=== PATIENT | female | born 1990 | race Caucasian/White ===

== ENCOUNTER 2021-05-28 12:11 | Inpatient (IN) | payer OTHER, SELFPAY ==
--- NOTE | ~2021-05-28 | XR_ITS ---
EXAMINATION: XR CHEST CLINICAL INFORMATION: Assess pneumomediastinum. COMPARISON: CT chest 06/05/2021 TECHNIQUE: Frontal view of the chest was obtained. FINDINGS: There is diffuse patchy opacity seen right upper lobe, both lower lobes and left midlung and upper lobe consistent with multilobar infiltrates. Heart size and pulmonary vascularity is normal. No gross bony abnormality seen. There is no gas visualized in the mediastinum on this chest x-ray. No gross bony abnormality seen. XR/XR chest 1V IMPRESSION: Multilobar infiltrates. No gas visualized in the mediastinum.
--- NOTE | ~2021-05-28 | XR_ITS ---
EXAMINATION: XR CHEST CLINICAL INFORMATION: COVID, dyspnea. COMPARISON: 05/28/2021. TECHNIQUE: Frontal view of the chest was obtained. FINDINGS: Increased infiltrates are seen with perihilar and basilar distribution. The heart and mediastinal structures are unremarkable. XR/XR chest 1V IMPRESSION: Interval increase in bilateral infiltrates consistent with the patient's known COVID pneumonia.
--- NOTE | ~2021-05-28 | XR_ITS ---
EXAMINATION: XR CHEST CLINICAL INFORMATION: Covid positive. Shortness of breath and hypoxia. COMPARISON: None TECHNIQUE: AP portable view of the chest was obtained. FINDINGS: There are scattered regions of parenchymal disease seen bilaterally. No pneumothorax or pleural effusion. Heart normal size. No evidence of pulmonary edema. XR/XR chest 1V IMPRESSION: Bilateral regions of scattered disease.
--- NOTE | ~2021-05-28 | CT_ITS ---
EXAMINATION: CT ANGIOGRAM OF THE CHEST WITH AND WITHOUT CONTRAST (CT PULMONARY ANGIOGRAM FOR PE) CLINICAL INFORMATION: Reason for Exam covid + dimer elevated, eval for PE COMPARISON: Radiographs dated 06/03/2021 TECHNIQUE: Prior to contrast administration, noncontrast localization images were obtained. Subsequently, multidetector volumetric imaging was performed from the thoracic inlet to below the diaphragms following the administration of 65 mL Omnipaque 350 intravenous contrast. No contrast reaction reported Sagittal, coronal, and MIP oblique sagittal reformatted images were obtained on the CT workstation, uploaded to PACS, and reviewed. This CT examination was performed using dose optimization techniques as appropriate, variously including the following: *Automated exposure control *Adjustment of mA and/or kV according to patient size (this includes techniques or standardized protocols for targeted exams where dose is matched to indication/reason for exam; i.e. extremities or head) *Use of iterative reconstruction technique Total exam dose-length product 327 mGy-cm FINDINGS: QUALITY OF STUDY/CONTRAST BOLUS: Satisfactory. PULMONARY ARTERIES: There is acute thrombus within the right lower lobe pulmonary artery extending into the segmental and subsegmental branches, more notably at the posterior and medial basilar segments. Small segmental and subsegmental pulmonary emboli are noted in the left lower lobe and right middle lobe. Diameter of the pulmonary outflow tract measures 2.8 cm, within normal limits. THORACIC AORTA: No aneurysm or dissection. LUNG: Patchy groundglass opacities are present throughout both lungs with a basilar preference, sparing the apices. No dense consolidation or nodules. Central airways are clear. PLEURA: No pleural effusion or pneumothorax. MEDIASTINUM: There is moderate pneumomediastinum extending from the level of the diaphragmatic hiatus cephalad through the thoracic inlet into the cervical soft tissues. A small amount dissects within the perihilar regions into the recesses around the pulmonary vasculature. A clear site of origin is not identified. There is a RV/LV ratio of 0.91 which is borderline abnormal and suggestive of elevated right heart pressures. No septal bowing is identified. CHEST WALL/AXILLA: No axillary or internal mammary lymphadenopathy. OSSEOUS STRUCTURES: No acute or suspicious osseous abnormality. UPPER ABDOMEN: No acute findings are identified in the upper abdomen. No reflux of contrast into the hepatic veins to suggest elevated right heart pressures. CT/CT angio chest PE protocol IMPRESSION: 1. Moderate volume of acute pulmonary emboli which are most notable in the lobar, segmental, and subsegmental branches of the right lower lobe. 2. Diffuse groundglass opacities in both lungs consistent with known COVID pneumonia. 3. Borderline abnormal RV/LV ratio of 0.91 which is a poor prognostic indicator regarding right ventricular strain. 4. Moderate volume of pneumomediastinum extending from the level of the diaphragmatic hiatus through the thoracic inlet into the cervical soft tissues. VTE: positive This critical result was discussed by telephone with Loida PRICE on 06/05/2021 at 6:19 PM.
--- NOTE | ~2021-05-28 | US_ITS ---
EXAMINATION: VENOUS ULTRASOUND WITH DOPPLER LOWER EXTREMITY, BILATERAL CLINICAL INFORMATION: PE. COMPARISON: None TECHNIQUE: Ultrasound of the deep veins is performed from the hip to the calf with compression sonography and color and pulse Doppler assessment. Spectral analysis with color-flow imaging is performed. FINDINGS: RIGHT: There is normal venous compression and respiratory variation and augmented flow. The visualized common femoral vein, superficial femoral vein, profunda femoral vein, popliteal vein, and the trifurcation region shows no evidence of deep venous thrombosis. There is no significant popliteal fossa cyst. LEFT: There is normal venous compression and respiratory variation and augmented flow. The visualized common femoral vein, superficial femoral vein, profunda femoral vein, popliteal vein, and the trifurcation region shows no evidence of deep venous thrombosis. There is colonic visualized in mid posterior tibial vein. The rest of the deep venous system is negative for DVT. There is no significant popliteal fossa cyst. If the patient's symptoms persist, followup ultrasound in 5 days 7 days might be of value to exclude proximal propagation from a non-visualized calf vein. US/US venous duplex LE BI IMPRESSION: No DVT demonstrated in the right lower extremity. There is venous thrombosis in left mid tibial vein below the calf. Otherwise rest of left lower extremity is unremarkable.
[2021-05-28 12:34] VITALS: BP 110/68; PULSE 113; RESP 24; TEMP 38.2; O2SAT 89; BMI 31.7
--- NOTE | 2021-05-28 12:48 | ECG_ITS ---
Test Reason : SOB Blood Pressure : / mmHG Vent. Rate : 112 BPM Atrial Rate : 112 BPM P-R Int : 140 ms QRS Dur : 086 ms QT Int : 350 ms P-R-T Axes : 047 014 016 degrees QTc Int : 477 ms Sinus tachycardia Nonspecific ST and T wave abnormality Borderline ECG No previous ECGs available Referred By: Faiza Holloway Electronically Signed By:ADRIAN GALAN
--- NOTE | 2021-05-28 13:15 | ED.SOB ---
HPI - SOB/Dyspnea General Chief Complaint: Dyspnea Stated Complaint: COVID+ Time Seen by Provider: 05/28/21 12:34 Source: patient Mode of arrival: ambulatory History of Present Illness HPI Narrative: 30-year-old female COVID-19 positive on 05/22 presenting to the ED complaining of increasing SOB, and persistent fevers x couple days. Reports dry cough and chest discomfort when coughing. Denies abdominal pain, nausea/vomiting, pedal edema, recent travel, cigarette smoking, history of clots MD elicited complaint: shortness of breath and cough Related Data Home Medications Medication Instructions Recorded Confirmed No Known Home Meds 05/28/21 05/28/21 Allergies Allergy/AdvReac Type Severity Reaction Status Date / Time No Known Allergies Allergy Verified 05/28/21 12:34 Review of Systems Review of Systems: Constitutional: + Fever, No Chills, No Fatigue, No Malaise ENT/Mouth: No Nasal Congestion, No Sinus Pain, No sore throat, No Rhinorrhea Eyes: No Eye Pain, No Swelling, No Redness, No Foreign Body, No Discharge, No Vision Changes Cardiovascular: + Chest Pain when coughing, + SOB, No Dyspnea on Exertion, No Orthopnea, No Edema, No Palpitations Respiratory: + Cough, No Sputum, No Wheezing, No Smoke Exposure, + Dyspnea Gastrointestinal: No Nausea, No Vomiting, No Diarrhea, No Constipation, No Abdominal pain Genitourinary: No Dysuria, No Flank Pain Musculoskeletal: No joint pain, No Myalgias, No Joint Swelling Skin: No Skin Lesions, No rash Neuro: No Weakness, NNo Dizziness, No Headache Yes all other systems are reviewed and are negative [facility] Past Medical History Attestation statement: The following information was validated with the patient. Medical History (Updated 05/28/21 @ 16:19 by Elena Concepcion NP) No pertinent past medical history Surgical History (Updated 05/28/21 @ 16:10 by Elena Concepcion NP) No pertinent past surgical history Family History Family History (Updated 05/28/21 @ 16:12 by Elena Concepcion NP) Mother Lung cancer Social History Social History (Updated 05/28/21 @ 16:13 by Elena Concepcion NP) Household Members: Significant Other Alcohol intake: current Alcohol intake frequency: holidays/special occasions only Patient Tobacco Use Status: Never used Tobacco Use of substances other than those prescribed or required for medical reasons: No Advance Directives: No Advance Directives Information Provided: No Patient : No Physical Exam Vital Signs: Vital Signs: Last Vital Signs Temp 100.8 F H 05/28/21 12:34 Pulse 113 H 05/28/21 12:34 Resp 24 H 05/28/21 12:34 BP 110/68 05/28/21 12:34 Pulse Ox 89 L 05/28/21 12:34 BMI result Body Mass Index 31.7 Const: General: cooperative, healthy appearing and no acute distress Orientation/consciousness: patient oriented x3 Limitations: no limitations HENMT: Head: Yes normal to inspection Ears: hearing grossly normal bilaterally General nose exam: Normal external nose present Face and sinus: Yes normal facial exam Eyes: General: appearance normal, both eyes and all related structures EOM: EOMs intact bilaterally Neck: Neck: Yes normal visual inspection and Yes no meningeal signs Resp: Effort & Inspection: tachypneic Auscultation: clear to auscultation bilaterally, no rales, no rhonchi and no wheezes Cardio: Rate: regular rate and tachycardic Heart sounds: S1 normal heart sound present and S2 normal heart sound present GI: Inspection: Yes normal to inspection Palpation (GI): Soft to palpation, nontender, no guarding and not rigid Skin: Rashes: no rashes Wounds: no wounds Neuro: General: patient oriented x3 and no meningeal signs Gait exam (Neuro): Normal gait present Extrem: General: Yes normal to inspection, Yes no pedal edema and Yes no calf tenderness Course Course Course Narrative: 1350--XR chest 1V IMPRESSION: Bilateral regions of scattered disease. -1448--leukopenia 4.0, D-dimer 171 > PE unlikely -ferritin, LDH, CRP elevated expected from COVID-19. AST/ALT elevated >plan for admission MDM - SOB/Dyspnea MDM Narrative Medical decision making narrative: 30-year-old female COVID-19 positive on 05/22 presenting to the ED complaining of increasing SOB, and persistent fevers x couple days. On exam febrile, tachypneic and tachycardic likely from fever/known COVID-19 infection, satting 89% on RA increased to 96% on 2L NC. Concern for continued COVID-19 symptoms vs COVID pneumonia vs PE. Low concern for severe sepsis as known viral etiology Plan: EKG, labs, CXR, IV Decadron, anticipated admission Differential Diagnosis Differential diagnosis: Likely pneumonia, pulmonary embolism and pleural effusion Medical Records Attestation: I reviewed the patient's medical records. Lab Data Attestation: I reviewed the patient's lab results. Result diagrams: 05/28/21 14:05 05/28/21 14:05 Labs: Lab Results 05/28/21 05/28/21 05/28/21 Range/Units 14:05 14:05 14:05 WBC 4.0 L (4.8-10.8) X10*3/uL RBC 4.63 (4.20-5.50) X10*6/uL Hgb 13.3 (12.0-16.0) g/dl Hct 38.3 (37.0-47.0) % MCV 82.7 (80.0-98.0) fL MCH 28.7 (27.0-33.0) pg MCHC 34.7 (31.0-35.0) g/dl RDW 12.4 (11.0-16.0) % Plt Count 168 (160-400) X10*3/uL MPV 9.3 L (9.4-12.3) fL Immature Gran % (Auto) 0.3 (0.0-0.4) % Neut % (Auto) 68.7 (45-73) % Lymph % (Auto) 24.4 (20-40) % [place] % (Auto) 6.3 (2-11) % Eos % (Auto) 0.0 (0-4) % Baso % (Auto) 0.3 (0-2) % Lymph # (Auto) 1.0 L (1.2-4.9) X10*3/uL [place] # (Auto) 0.3 (0.1-1.2) X10*3/uL Eos # (Auto) 0.0 (0.0-0.4) X10*3/uL Baso # (Auto) 0.0 (0.0-0.2) X10*3/uL Abs Immat Gran (auto) 0.01 (0.00-0.03) X10*3/uL Absolute Neuts (auto) 2.7 (2.0-8.3) x10*3/uL Absolute Nucleated RBC 0.000 (0.0-0.012) X10*3/uL Nucleated RBC % (auto) 0.0 (0.0-0.2) /100WBC D-Dimer High Sensitivty NG/ML Sodium 135 (135-145) mmol/L Potassium 3.2 L (3.3-5.1) mmol/L Chloride 99 (96-108) mmol/L Carbon Dioxide 26 (22-29) mmol/L Anion Gap 13 (12-20) BUN 7 L (9-16) mg/dL Creatinine 0.68 (0.5-1.4) mg/dL Estim Creat Clear Calc 126.7 Estimated GFR > 60 Random Glucose 129 H (60-115) mg/dL Lactic Acid 1.0 (0.5-2.0) mmol/L Calcium 9.6 (8.4-10.2) mg/dL Magnesium 1.9 (1.6-2.6) mg/dL Ferritin (10-122) ng/mL Total Bilirubin 0.3 (0.0-1.0) mg/dL Direct Bilirubin 0.3 (0.0-0.5) mg/dL AST 85 H (5-31) U/L ALT 71 H (0-31) U/L Alkaline Phosphatase 47 (39-117) U/L Lactate Dehydrogenase 499 H (122-220) U/L C-Reactive Protein 3.75 H (< or = 0.50) mg/dL B-Natriuretic Peptide (<100) pg/mL Total Protein 6.7 (6.5-8.0) g/dL Albumin 4.1 (3.5-5.0) g/dL Procalcitonin ng/mL 05/28/21 05/28/21 05/28/21 Range/Units 14:05 14:05 14:06 WBC (4.8-10.8) X10*3/uL RBC (4.20-5.50) X10*6/uL Hgb (12.0-16.0) g/dl Hct (37.0-47.0) % MCV (80.0-98.0) fL MCH (27.0-33.0) pg MCHC (31.0-35.0) g/dl RDW (11.0-16.0) % Plt Count (160-400) X10*3/uL MPV (9.4-12.3) fL Immature Gran % (Auto) (0.0-0.4) % Neut % (Auto) (45-73) % Lymph % (Auto) (20-40) % [place] % (Auto) (2-11) % Eos % (Auto) (0-4) % Baso % (Auto) (0-2) % Lymph # (Auto) (1.2-4.9) X10*3/uL [place] # (Auto) (0.1-1.2) X10*3/uL Eos # (Auto) (0.0-0.4) X10*3/uL Baso # (Auto) (0.0-0.2) X10*3/uL Abs Immat Gran (auto) (0.00-0.03) X10*3/uL Absolute Neuts (auto) (2.0-8.3) x10*3/uL Absolute Nucleated RBC (0.0-0.012) X10*3/uL Nucleated RBC % (auto) (0.0-0.2) /100WBC D-Dimer High Sensitivty 171 NG/ML Sodium (135-145) mmol/L Potassium (3.3-5.1) mmol/L Chloride (96-108) mmol/L Carbon Dioxide (22-29) mmol/L Anion Gap (12-20) BUN (9-16) mg/dL Creatinine (0.5-1.4) mg/dL Estim Creat Clear Calc Estimated GFR Random Glucose (60-115) mg/dL Lactic Acid (0.5-2.0) mmol/L Calcium (8.4-10.2) mg/dL Magnesium (1.6-2.6) mg/dL Ferritin 1066 H (10-122) ng/mL Total Bilirubin (0.0-1.0) mg/dL Direct Bilirubin (0.0-0.5) mg/dL AST (5-31) U/L ALT (0-31) U/L Alkaline Phosphatase (39-117) U/L Lactate Dehydrogenase (122-220) U/L C-Reactive Protein (< or = 0.50) mg/dL B-Natriuretic Peptide < 10 (<100) pg/mL Total Protein (6.5-8.0) g/dL Albumin (3.5-5.0) g/dL Procalcitonin ng/mL 05/28/21 Range/Units 14:06 WBC (4.8-10.8) X10*3/uL RBC (4.20-5.50) X10*6/uL Hgb (12.0-16.0) g/dl Hct (37.0-47.0) % MCV (80.0-98.0) fL MCH (27.0-33.0) pg MCHC (31.0-35.0) g/dl RDW (11.0-16.0) % Plt Count (160-400) X10*3/uL MPV (9.4-12.3) fL Immature Gran % (Auto) (0.0-0.4) % Neut % (Auto) (45-73) % Lymph % (Auto) (20-40) % [place] % (Auto) (2-11) % Eos % (Auto) (0-4) % Baso % (Auto) (0-2) % Lymph # (Auto) (1.2-4.9) X10*3/uL [place] # (Auto) (0.1-1.2) X10*3/uL Eos # (Auto) (0.0-0.4) X10*3/uL Baso # (Auto) (0.0-0.2) X10*3/uL Abs Immat Gran (auto) (0.00-0.03) X10*3/uL Absolute Neuts (auto) (2.0-8.3) x10*3/uL Absolute Nucleated RBC (0.0-0.012) X10*3/uL Nucleated RBC % (auto) (0.0-0.2) /100WBC D-Dimer High Sensitivty NG/ML Sodium (135-145) mmol/L Potassium (3.3-5.1) mmol/L Chloride (96-108) mmol/L Carbon Dioxide (22-29) mmol/L Anion Gap (12-20) BUN (9-16) mg/dL Creatinine (0.5-1.4) mg/dL Estim Creat Clear Calc Estimated GFR Random Glucose (60-115) mg/dL Lactic Acid (0.5-2.0) mmol/L Calcium (8.4-10.2) mg/dL Magnesium (1.6-2.6) mg/dL Ferritin (10-122) ng/mL Total Bilirubin (0.0-1.0) mg/dL Direct Bilirubin (0.0-0.5) mg/dL AST (5-31) U/L ALT (0-31) U/L Alkaline Phosphatase (39-117) U/L Lactate Dehydrogenase (122-220) U/L C-Reactive Protein (< or = 0.50) mg/dL B-Natriuretic Peptide (<100) pg/mL Total Protein (6.5-8.0) g/dL Albumin (3.5-5.0) g/dL Procalcitonin 0.14 ng/mL ECG Data Attestation: I personally reviewed and interpreted this ECG as follows: ECG interpretation date: 05/28/21 ECG interpretation time: 01:34 Interpretation: EKG sinus tachycardia rate of 112. MA interval 140. QTC 477. Inverted T-wave in lead 3. No STEMI Critical Care Time Critical Care Time Critical Care Time: Yes Total Critical Care Time: 40 Attestation: I have personally provided critical care time exclusive of time spent on separately billable procedures. Time includes review of lab data, radiology results, discussion with consultants, and monitoring for potential decompensation. Intervention performed as documented. Discharge Plan Discharge Clinical Impression: Pneumonia due to COVID-19 virus Patient Disposition: Admitted As Inpatient
[2021-05-28] MEDS: Acetaminophen 325 MG TABLET 650 MG PO (13:23)
[2021-05-28] MEDS: dexAMETHasone sod phosphate 4 MG/ML VIAL 6 MG IVPUSH (13:44)
[2021-05-28 14:13] LABS: Basophils Percent Auto 0.3 % (0-2); Hematocrit 38.3 % (37.0-47.0); Hemoglobin 13.3 g/dl (12.0-16.0); Imm Gran Abs Auto 0.01 X10*3/uL (0.00-0.03); Imm Gran Pct Auto 0.3 % (0.0-0.4); Lymphocytes Percent Auto 24.4 % (20-40); MANUAL DIFF FLAG NO; Mean Corpuscular HGB Conc 34.7 g/dl (31.0-35.0); Mean Corpuscular Hemoglobin 28.7 pg (27.0-33.0); Mean Corpuscular Volume 82.7 fL (80.0-98.0); Mean Platelet Volume 9.3 fL (9.4-12.3); Monocytes Absolute Auto 0.3 X10*3/uL (0.1-1.2); Monocytes Percent Auto 6.3 % (2-11); Neutrophils Absolute Auto 2.7 x10*3/uL (2.0-8.3); Neutrophils Percent Auto 68.7 % (45-73); Platelet Count 168 X10*3/uL (160-400); Red Blood Count 4.63 X10*6/uL (4.20-5.50); Red Cell Distribution Width 12.4 % (11.0-16.0)
[2021-05-28] MEDS: cefTRIAXone sodium 1 GM in 0.9 % Sodium Chloride 50 ML IV (14:17)
[2021-05-28 14:20] LABS: D Dimer High Sensitivity 171 NG/ML
[2021-05-28 14:32] LABS: Alanine Aminotransferase 71 U/L (0-31); Albumin Level 4.1 g/dL (3.5-5.0); Alkaline Phosphatase 47 U/L (39-117); Anion Gap 13 (12-20); Aspartate Amino Transferase 85 U/L (5-31); Bilirubin Direct 0.3 mg/dL (0.0-0.5); Bilirubin Total 0.3 mg/dL (0.0-1.0); Blood Urea Nitrogen 7 mg/dL (9-16); C Reactive Protein 3.75 mg/dL (< or = 0.50); Calcium 9.6 mg/dL (8.4-10.2); Carbon Dioxide 26 mmol/L (22-29); Chloride 99 mmol/L (96-108); Creatinine Clr Calc Pharmacy 126.7; Estimated Glomerular Filt Rate > 60; Glucose Random 129 mg/dL (60-115); Lactate Dehydrogenase 499 U/L (122-220); Magnesium 1.9 mg/dL (1.6-2.6); Potassium 3.2 mmol/L (3.3-5.1); Sodium 135 mmol/L (135-145); Total Protein 6.7 g/dL (6.5-8.0)
[2021-05-28 14:36] LABS: B Type Natriuretic Peptide < 10 pg/mL (<100)
[2021-05-28 14:49] LABS: Ferritin 1066 ng/mL (10-122); Procalcitonin 0.14 ng/mL
--- NOTE | 2021-05-28 15:14 | PM.IMHP ---
History of Present Illness Date of Service: 05/28/21 Attending physician on admission: Greg Ferreira Chief Complaint: Shortness of breath and fever 30 year old unvaccinated women presenting with increased shortness of breath over the last few days. She was diagnosed with covid 1 week ago. She lives with her boyfriend who also has covid 19. Seh reported fevers, shortness of breath and cough as well as a few episodes of diarrhea. She denied chest pain, vomiting, recent travel. In the ED, her oxygen saturation was noted to be 89% and she was placed on 2 liters of oxygen.Her cxr showed Bilateral regions of scattered disease. She did have a fever abnd tachycardia. She was given a dose of rocephin, decadron and tylenol. She will be admitted for further management of Covid 19. Review of Systems Review of Systems: Denies any recent fever chills or decrease in appetite respiratory See HPI cardiovascular Denies chest pain gastrointestinal denies any dysphagia abdominal pain nausea vomiting or diarrhea genitourinary denies any dysuria frequency or hematuria musculoskeletal denies any joint pain or swelling neuropsych denies any weakness or seizures all other systems reviewed are negative [facility] Medical History (Updated 05/28/21 @ 16:19 by Elena Concepcion NP) No pertinent past medical history Family History (Updated 05/28/21 @ 16:12 by Elena Concepcion NP) Mother Lung cancer Surgical History (Updated 05/28/21 @ 16:10 by Elena Concepcion NP) No pertinent past surgical history Social History (Updated 05/28/21 @ 16:13 by Elena Concepcion NP) Household Members: Significant Other Alcohol intake: current Alcohol intake frequency: holidays/special occasions only Patient Tobacco Use Status: Never used Tobacco Use of substances other than those prescribed or required for medical reasons: No Advance Directives: No Advance Directives Information Provided: No Patient : No Meds Allergies Allergy/AdvReac Type Severity Reaction Status Date / Time No Known Allergies Allergy Verified 05/28/21 12:34 Active Medications: Current Medications Pharmacy Consult (Consult Rx Perform Med Rec) 1 each MISCELLANE ONCE PRN PRN Reason: Consult order Home Medications Medication Instructions Recorded Confirmed Last Taken Type No Known Home Meds 05/28/21 05/28/21 Unknown History Physical Exam Vital Signs and Narrative: Vital Signs: Last Vital Signs Temp 100.8 F H 05/28/21 12:34 Pulse 113 H 05/28/21 12:34 Resp 24 H 05/28/21 12:34 BP 110/68 05/28/21 12:34 Pulse Ox 89 L 05/28/21 12:34 BMI result Body Mass Index 31.7 Appearing in no acute distress head is normocephalic atraumatic eyes pupils are PERRLA sclera is anicteric mouth throat mucous membranes are intact and moist neck is supple no lymphadenopathy, no JVD noted lung sounds are clear to auscultation heart regular rate rhythm, clear S1, S2 positive bowel sounds, abdomen is soft, nontender neuro patient is alert x3, no focal deficits Results Labs CBC and Chem 7: 05/28/21 14:05 05/28/21 14:05 Labs: Laboratory Results - last 24 hr 05/28/21 05/28/21 05/28/21 14:05 14:05 14:05 MCV 82.7 MCH 28.7 MCHC 34.7 RDW 12.4 Plt Count 168 MPV 9.3 L Immature Gran % (Auto) 0.3 Neut % (Auto) 68.7 Lymph % (Auto) 24.4 Wirt % (Auto) 6.3 Eos % (Auto) 0.0 Baso % (Auto) 0.3 Lymph # (Auto) 1.0 L Wirt # (Auto) 0.3 Eos # (Auto) 0.0 Baso # (Auto) 0.0 Abs Immat Gran (auto) 0.01 Absolute Neuts (auto) 2.7 Absolute Nucleated RBC 0.000 Nucleated RBC % (auto) 0.0 D-Dimer High Sensitivty Anion Gap 13 Estim Creat Clear Calc 126.7 Estimated GFR > 60 Random Glucose 129 H Lactic Acid 1.0 Calcium 9.6 Magnesium 1.9 Ferritin Total Bilirubin 0.3 Direct Bilirubin 0.3 AST 85 H ALT 71 H Alkaline Phosphatase 47 Lactate Dehydrogenase 499 H C-Reactive Protein 3.75 H B-Natriuretic Peptide Total Protein 6.7 Albumin 4.1 Procalcitonin 05/28/21 05/28/21 05/28/21 14:05 14:05 14:06 MCV MCH MCHC RDW Plt Count MPV Immature Gran % (Auto) Neut % (Auto) Lymph % (Auto) Wirt % (Auto) Eos % (Auto) Baso % (Auto) Lymph # (Auto) Wirt # (Auto) Eos # (Auto) Baso # (Auto) Abs Immat Gran (auto) Absolute Neuts (auto) Absolute Nucleated RBC Nucleated RBC % (auto) D-Dimer High Sensitivty 171 Anion Gap Estim Creat Clear Calc Estimated GFR Random Glucose Lactic Acid Calcium Magnesium Ferritin 1066 H Total Bilirubin Direct Bilirubin AST ALT Alkaline Phosphatase Lactate Dehydrogenase C-Reactive Protein B-Natriuretic Peptide < 10 Total Protein Albumin Procalcitonin 05/28/21 14:06 MCV MCH MCHC RDW Plt Count MPV Immature Gran % (Auto) Neut % (Auto) Lymph % (Auto) Wirt % (Auto) Eos % (Auto) Baso % (Auto) Lymph # (Auto) Wirt # (Auto) Eos # (Auto) Baso # (Auto) Abs Immat Gran (auto) Absolute Neuts (auto) Absolute Nucleated RBC Nucleated RBC % (auto) D-Dimer High Sensitivty Anion Gap Estim Creat Clear Calc Estimated GFR Random Glucose Lactic Acid Calcium Magnesium Ferritin Total Bilirubin Direct Bilirubin AST ALT Alkaline Phosphatase Lactate Dehydrogenase C-Reactive Protein B-Natriuretic Peptide Total Protein Albumin Procalcitonin 0.14 Imaging Radiologist's Impressions: Impressions Chest X-Ray 05/28/21 13:10 IMPRESSION: Bilateral regions of scattered disease. Assessment and Plan (1) Acute respiratory failure with hypoxia: Status: Acute (2) Pneumonia due to COVID-19 virus: Status: Acute (3) Hypokalemia: Status: Acute 30-year-old woman presented to the complaints of increased shortness of fever several days. Sepsis. Fever, tachycardia, tachypnea. Viral COVID Follow blood cultures Acute hypoxic respiratory failure secondary to COVID-19 Decadron, Vitamin-C, vitamin-D and Pepcid Supplemental oxygen as needed ID consult Hypokalemia. Repleted follow BMP DVT prophylaxis with Lovenox Attending Dr. Ferreira Full code Quality Stroke Does the patient have a stroke diagnosis?: No VTE Prior VTE?: No VTE Risk Level:: Medical - moderate - high VTE Device Contraindication: Treatment Not Indicated VTE Drug Contraindication: N/A - Med Ordered
[2021-05-28 16:58] LABS: Lactate Dehydrogenase 572 U/L (122-220)
[2021-05-28 17:19] LABS: Ferritin 1095 ng/mL (10-122)
[2021-05-28] MEDS: Potassium Chloride ER 20 MEQ TAB.ER.PRT 40 MEQ PO (17:58)
[2021-05-28] MEDS: Enoxaparin Sodium 40 MG/0.4 ML SYRINGE SUBCUT (17:58)
[2021-05-28] MEDS: 0.9 % Sodium Chloride Flush 3 ML SYRINGE IVFLUSH (17:59)
[2021-05-28 19:23] VITALS: BP 118/77; PULSE 98; RESP 16; TEMP 37.8; O2SAT 97
[2021-05-28] MEDS: Ketorolac Tromethamine 30 MG/ML VIAL IVPUSH (20:13)
[2021-05-29] VITALS (12 sets, daily range): BP systolic 106–126; BP diastolic 67–76; PULSE 89–111; RESP 16–20; TEMP 37.5–39.4; O2SAT 85–97
[2021-05-29] MEDS: Acetaminophen 325 MG TABLET 650 MG PO ×4 (00:51→20:51)
--- NOTE | 2021-05-29 02:19 | PC.NURSE ---
pt still febrile after tylenol and ice packs. temp 101.6 hospitalist notified. no new orders at this time.
[2021-05-29 08:00] LABS: MANUAL DIFF FLAG NO
[2021-05-29 08:03] LABS: Basophils Percent Auto 0.2 % (0-2); Hemoglobin 13.4 g/dl (12.0-16.0); Imm Gran Abs Auto 0.02 X10*3/uL (0.00-0.03); Imm Gran Pct Auto 0.4 % (0.0-0.4); Lymphocytes Absolute Auto 1.1 X10*3/uL (1.2-4.9); Lymphocytes Percent Auto 20.7 % (20-40); Mean Corpuscular HGB Conc 33.5 g/dl (31.0-35.0); Mean Corpuscular Volume 83.7 fL (80.0-98.0); Mean Platelet Volume 9.7 fL (9.4-12.3); Monocytes Absolute Auto 0.4 X10*3/uL (0.1-1.2); Monocytes Percent Auto 7.3 % (2-11); Neutrophils Absolute Auto 3.7 x10*3/uL (2.0-8.3); Neutrophils Percent Auto 71.4 % (45-73); Platelet Count 244 X10*3/uL (160-400); Red Blood Count 4.78 X10*6/uL (4.20-5.50); Red Cell Distribution Width 12.5 % (11.0-16.0); White Blood Count 5.2 X10*3/uL (4.8-10.8)
--- NOTE | 2021-05-29 08:13 | PHA.MEDREC ---
Pharmacy Consult ? Medication Reconciliation Rn completed med rec, pharmacy reviewed.
[2021-05-29 08:28] LABS: Anion Gap 14 (12-20); Blood Urea Nitrogen 13 mg/dL (9-16); Calcium 9.1 mg/dL (8.4-10.2); Carbon Dioxide 27 mmol/L (22-29); Chloride 99 mmol/L (96-108); Creatinine Clr Calc Pharmacy 110.5; Estimated Glomerular Filt Rate > 60; Glucose Random 130 mg/dL (60-115); Potassium 3.8 mmol/L (3.3-5.1); Sodium 136 mmol/L (135-145)
[2021-05-29] MEDS: Cholecalciferol (Vitamin D3) 25 MCG TABLET 50 MCG PO (08:49)
[2021-05-29] MEDS: Azithromycin 500 MG TABLET PO (08:50)
[2021-05-29] MEDS: Ascorbic Acid 500 MG TABLET 1000 MG PO (08:50)
[2021-05-29] MEDS: 0.9 % Sodium Chloride Flush 3 ML SYRINGE IVFLUSH ×2 (08:50→15:23)
[2021-05-29] MEDS: dexAMETHasone sod phosphate 4 MG/ML VIAL 6 MG IVPUSH (08:50)
[2021-05-29] MEDS: Famotidine/PF 20 MG/2 ML VIAL IVPUSH (08:51)
--- NOTE | 2021-05-29 11:52 | MHC.CM.PN ---
CM ATTEMPTED TO CONTACT PT AT CELL PHONE NUMBER LISTED, [phone], PT DID NOT ANSWER CM CALLED PTS PRIMARY CONTACT, [facility] MONREAL [phone]. 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 CURRENT DC PLAN IS HOME WITH NO SERVICES S/O, [facility], WILL TRANSPORT
--- NOTE | 2021-05-29 11:57 | HO.PM.IMPN ---
Subjective Subjective Date of Service: 05/29/21 <Elena Concepcion NP - Last Filed: 05/29/21 12:00> 06/05/21 <Joaquín Lopez MD - Last Filed: 06/05/21 03:43> Review of Systems Follow-up COVID-19 States feeling very anxious and worried Having fevers overnight No complaints of shortness of breath or cough <Elena Concepcion NP - Last Filed: 05/29/21 12:00> Physical Exam Vital Signs: Vital Signs: Last Vital Signs Temp 99.7 F 05/29/21 10:22 Pulse 111 H 05/29/21 07:24 Resp 16 05/29/21 07:24 BP 115/70 05/29/21 07:24 Pulse Ox 94 05/29/21 07:24 BMI result Body Mass Index 31.7 <Elena Concepcion NP - Last Filed: 05/29/21 12:00> Appearing in no acute distress lungs normal expansion heart regular rate rhythm, clear S1, S2 positive bowel sounds, abdomen is soft, nontender neuro patient is alert x3, no focal deficits <Elena Concepcion NP - Last Filed: 05/29/21 12:00> Objective Data Active Medications Acetaminophen (Acetaminophen 325 Mg Tablet) 650 mg PO Q4H PRN PRN Reason: pain and or fever Last Admin: 05/29/21 08:49 Dose: 650 mg Documented by: THELMA Ascorbic Acid (Ascorbic Acid 500 Mg Tablet) 1,000 mg PO DAILY [facility] Last Admin: 05/29/21 08:50 Dose: 1,000 mg Documented by: THELMA Azithromycin (Azithromycin 500 Mg Tablet) 500 mg PO Q24H [facility] Last Admin: 05/29/21 08:50 Dose: 500 mg Documented by: THELMA Dexamethasone Sodium Phosphate (Dexamethasone Sod Phosphate 4 Mg/Ml Vial) 6 mg IVPUSH DAILY [facility] Last Admin: 05/29/21 08:50 Dose: 6 mg Documented by: THELMA Enoxaparin Sodium (Enoxaparin Sodium 40 Mg/0.4 Ml Syringe) 40 mg SUBCUT Q24H [facility] Last Admin: 05/28/21 17:58 Dose: 40 mg Documented by: YANNI Famotidine (Famotidine/Pf 20 Mg/2 Ml Vial) 20 mg IVPUSH DAILY [facility] Last Admin: 05/29/21 08:51 Dose: 20 mg Documented by: THELMA Ceftriaxone Sodium 1 gm/ (Sodium Chloride) 50 mls @ 100 mls/hr IV Q24H [facility] Ketorolac Tromethamine (Ketorolac Tromethamine 30 Mg/Ml Vial) 30 mg IVPUSH Q6H PRN PRN Reason: Pain, Mild (Pain Scale 1-3) Stop: 06/02/21 15:16 Last Admin: 05/28/21 20:13 Dose: 30 mg Documented by: LESTER Pharmacy Consult (Consult Rx Perform Med Rec) 1 each MISCELLANE ONCE PRN PRN Reason: Consult order Sodium Chloride (0.9 % Sodium Chloride Flush 3 Ml Syringe) 3 ml IVFLUSH QSHIFT [facility] Last Admin: 05/29/21 08:50 Dose: 3 ml Documented by: THELMA Vitamin D (Cholecalciferol (Vitamin D3) 25 Mcg Tablet) 50 mcg PO DAILY [facility] Last Admin: 05/29/21 08:49 Dose: 50 mcg Documented by: THELMA <Elena Concepcion NP - Last Filed: 05/29/21 12:00> Labs CBC & Chem 7: : 06/03/21 07:06 06/03/21 07:06 <Elena Concepcion NP - Last Filed: 05/29/21 12:00> Labs: Laboratory Results - last 24 hr 05/28/21 05/28/21 05/28/21 14:05 14:05 14:05 MCV 82.7 MCH 28.7 MCHC 34.7 RDW 12.4 Plt Count 168 MPV 9.3 L Immature Gran % (Auto) 0.3 Neut % (Auto) 68.7 Lymph % (Auto) 24.4 [place] % (Auto) 6.3 Eos % (Auto) 0.0 Baso % (Auto) 0.3 Lymph # (Auto) 1.0 L [place] # (Auto) 0.3 Eos # (Auto) 0.0 Baso # (Auto) 0.0 Abs Immat Gran (auto) 0.01 Absolute Neuts (auto) 2.7 Absolute Nucleated RBC 0.000 Nucleated RBC % (auto) 0.0 D-Dimer High Sensitivty Anion Gap 13 Estim Creat Clear Calc 126.7 Estimated GFR > 60 Random Glucose 129 H Lactic Acid 1.0 Calcium 9.6 Magnesium 1.9 Ferritin Total Bilirubin 0.3 Direct Bilirubin 0.3 AST 85 H ALT 71 H Alkaline Phosphatase 47 Lactate Dehydrogenase 499 H C-Reactive Protein 3.75 H B-Natriuretic Peptide Total Protein 6.7 Albumin 4.1 Procalcitonin 05/28/21 05/28/21 05/28/21 14:05 14:05 14:06 MCV MCH MCHC RDW Plt Count MPV Immature Gran % (Auto) Neut % (Auto) Lymph % (Auto) [place] % (Auto) Eos % (Auto) Baso % (Auto) Lymph # (Auto) [place] # (Auto) Eos # (Auto) Baso # (Auto) Abs Immat Gran (auto) Absolute Neuts (auto) Absolute Nucleated RBC Nucleated RBC % (auto) D-Dimer High Sensitivty 171 Anion Gap Estim Creat Clear Calc Estimated GFR Random Glucose Lactic Acid Calcium Magnesium Ferritin 1066 H Total Bilirubin Direct Bilirubin AST ALT Alkaline Phosphatase Lactate Dehydrogenase C-Reactive Protein B-Natriuretic Peptide < 10 Total Protein Albumin Procalcitonin 05/28/21 05/28/21 05/29/21 14:06 16:33 07:37 MCV 83.7 MCH 28.0 MCHC 33.5 RDW 12.5 Plt Count 244 D MPV 9.7 Immature Gran % (Auto) 0.4 Neut % (Auto) 71.4 Lymph % (Auto) 20.7 [place] % (Auto) 7.3 Eos % (Auto) 0.0 Baso % (Auto) 0.2 Lymph # (Auto) 1.1 L [place] # (Auto) 0.4 Eos # (Auto) 0.0 Baso # (Auto) 0.0 Abs Immat Gran (auto) 0.02 Absolute Neuts (auto) 3.7 Absolute Nucleated RBC 0.000 Nucleated RBC % (auto) 0.0 D-Dimer High Sensitivty Anion Gap Estim Creat Clear Calc Estimated GFR Random Glucose Lactic Acid Calcium Magnesium Ferritin 1095 H Total Bilirubin Direct Bilirubin AST ALT Alkaline Phosphatase Lactate Dehydrogenase 572 H C-Reactive Protein B-Natriuretic Peptide Total Protein Albumin Procalcitonin 0.14 05/29/21 07:37 MCV MCH MCHC RDW Plt Count MPV Immature Gran % (Auto) Neut % (Auto) Lymph % (Auto) [place] % (Auto) Eos % (Auto) Baso % (Auto) Lymph # (Auto) [place] # (Auto) Eos # (Auto) Baso # (Auto) Abs Immat Gran (auto) Absolute Neuts (auto) Absolute Nucleated RBC Nucleated RBC % (auto) D-Dimer High Sensitivty Anion Gap 14 Estim Creat Clear Calc 110.5 Estimated GFR > 60 Random Glucose 130 H Lactic Acid Calcium 9.1 Magnesium Ferritin Total Bilirubin Direct Bilirubin AST ALT Alkaline Phosphatase Lactate Dehydrogenase C-Reactive Protein B-Natriuretic Peptide Total Protein Albumin Procalcitonin <Elena Concepcion NP - Last Filed: 05/29/21 12:00> Assessment and Plan (1) Pneumonia due to COVID-19 virus: Status: Acute <Elena Concepcion NP - Last Filed: 05/29/21 12:00> Assessment and Plan: 30-year-old woman presented to the complaints of increased shortness of fever several days. Sepsis.? Fever, tachycardia, tachypnea.? Viral COVID Follow blood cultures Acute hypoxic respiratory failure secondary to COVID-19 Decadron, Vitamin-C, vitamin-D and Pepcid Supplemental oxygen as needed, on 4liters sating 90-94% ID consult Will add rocephin and azithromycin for continuous fevers Hypokalemia. Repleted follow BMP DVT prophylaxis with Lovenox Attending Dr. Lopez Full code <Elena Concepcion NP - Last Filed: 05/29/21 12:00> Quality Stroke Does the patient have a stroke diagnosis?: No <Elena Concepcion NP - Last Filed: 05/29/21 12:00> VTE Prior VTE?: No <Elena Concepcion NP - Last Filed: 05/29/21 12:00> VTE Risk Level:: Medical - moderate - high <Elena Concepcion NP - Last Filed: 05/29/21 12:00> VTE Device Contraindication: Treatment Not Indicated <Elena Concepcion NP - Last Filed: 05/29/21 12:00> VTE Drug Contraindication: N/A - Med Ordered <Elena Concepcion NP - Last Filed: 05/29/21 12:00>
[2021-05-29] MEDS: Enoxaparin Sodium 40 MG/0.4 ML SYRINGE SUBCUT (15:23)
[2021-05-29 15:45] LABS: COVID-19 Test Positive (Negative)
--- NOTE | 2021-05-29 17:37 | PC.NURSE ---
PT FEBRILE THIS MORNING TO 103, PT WAS NOT FEELING WELL, TYLENOL GIVEN. FEVER DECREASED TO 99.7, PT STATED FEELING MUCH BETTER. REMAINS ON 2L O2 SATS IN HIGH 80'S ON ROOM AIR. TOLERATING PO, AMB TO BR. NEEDS BEING MET
--- NOTE | 2021-05-29 19:27 | PC.NURSE ---
Attempted to call report, Rn will call back
[2021-05-30] VITALS (9 sets, daily range): BP systolic 97–128; BP diastolic 56–74; PULSE 89–118; RESP 19–33; TEMP 35.9–40.1; O2SAT 90–96
[2021-05-30] MEDS: Acetaminophen 325 MG TABLET 650 MG PO ×3 (02:12→23:59)
[2021-05-30] MEDS: Ketorolac Tromethamine 30 MG/ML VIAL IVPUSH (03:40)
[2021-05-30 08:49] LABS: Hematocrit 40.2 % (37.0-47.0); Hemoglobin 13.2 g/dl (12.0-16.0); Mean Corpuscular HGB Conc 32.8 g/dl (31.0-35.0); Mean Corpuscular Volume 85.2 fL (80.0-98.0); Platelet Count 326 X10*3/uL (160-400); Red Blood Count 4.72 X10*6/uL (4.20-5.50); Red Cell Distribution Width 12.6 % (11.0-16.0); White Blood Count 7.7 X10*3/uL (4.8-10.8)
[2021-05-30 09:06] LABS: Anion Gap 14 (12-20); Blood Urea Nitrogen 18 mg/dL (9-16); Carbon Dioxide 30 mmol/L (22-29); Chloride 98 mmol/L (96-108); Creatinine Clr Calc Pharmacy 89.8; Estimated Glomerular Filt Rate > 60; Glucose Random 126 mg/dL (60-115); Potassium 3.7 mmol/L (3.3-5.1); Sodium 138 mmol/L (135-145)
[2021-05-30 09:11] LABS: Lactate Dehydrogenase 686 U/L (122-220)
--- NOTE | 2021-05-30 09:11 | MHC.CM.PN ---
Per SVP GROUP DIRECTOR, Patient is not yet medically cleared for dc (Covid, IV Decadron, IV Toradol). Home is the goal for dc and CM will follow for possible need to adjust the dc plan.
[2021-05-30 09:39] LABS: Procalcitonin 0.21 ng/mL
[2021-05-30] MEDS: 0.9 % Sodium Chloride Flush 3 ML SYRINGE IVFLUSH ×2 (09:52→15:35)
[2021-05-30] MEDS: dexAMETHasone sod phosphate 4 MG/ML VIAL 6 MG IVPUSH (09:52)
[2021-05-30] MEDS: Cholecalciferol (Vitamin D3) 25 MCG TABLET 50 MCG PO (09:54)
[2021-05-30] MEDS: Ascorbic Acid 500 MG TABLET 1000 MG PO (09:54)
[2021-05-30] MEDS: Famotidine/PF 20 MG/2 ML VIAL IVPUSH (09:56)
[2021-05-30 10:09] LABS: Ferritin 1929 ng/mL (10-122)
--- NOTE | 2021-05-30 10:59 | P.PNIM_ITS ---
Subjective Subjective Date of Service: 05/30/21 <Elena Concepcion NP - Last Filed: 05/30/21 11:02> 06/08/21 <Pasha Barger DO - Last Filed: 06/08/21 17:05> Review of Systems Follow-up COVID-19 pneumonia with hypoxia overnight Feels short of breath sometimes with ambulation Having diarrhea Increased anxiety <Elena Concepcion NP - Last Filed: 05/30/21 11:02> Physical Exam Vital Signs: Vital Signs: Last Vital Signs Temp 99.0 F 05/30/21 09:44 Pulse 105 H 05/30/21 09:44 Resp 20 05/30/21 09:44 BP 113/64 05/30/21 09:44 Pulse Ox 93 05/30/21 09:44 BMI result Body Mass Index 31.7 <Elena Concepcion NP - Last Filed: 05/30/21 11:02> Appearing in no acute distress lungs normal expansion heart regular rate rhythm, clear S1, S2 positive bowel sounds, abdomen is soft, nontender neuro patient is alert x3, no focal deficits <Elena Concepcion NP - Last Filed: 05/30/21 11:02> Objective Data Active Medications Acetaminophen (Acetaminophen 325 Mg Tablet) 650 mg PO Q4H PRN PRN Reason: pain and or fever Last Admin: 05/30/21 02:12 Dose: 650 mg Documented by: BARBARA Ascorbic Acid (Ascorbic Acid 500 Mg Tablet) 1,000 mg PO DAILY [facility] Last Admin: 05/30/21 09:54 Dose: 1,000 mg Documented by: JOI Dexamethasone Sodium Phosphate (Dexamethasone Sod Phosphate 4 Mg/Ml Vial) 6 mg IVPUSH DAILY [facility] Last Admin: 05/30/21 09:52 Dose: 6 mg Documented by: JOI Enoxaparin Sodium (Enoxaparin Sodium 40 Mg/0.4 Ml Syringe) 40 mg SUBCUT Q24H [facility] Last Admin: 05/29/21 15:23 Dose: 40 mg Documented by: THELMA Famotidine (Famotidine/Pf 20 Mg/2 Ml Vial) 20 mg IVPUSH DAILY [facility] Last Admin: 05/30/21 09:56 Dose: 20 mg Documented by: JOI Ketorolac Tromethamine (Ketorolac Tromethamine 30 Mg/Ml Vial) 30 mg IVPUSH Q6H PRN PRN Reason: Pain, Mild (Pain Scale 1-3) Stop: 06/02/21 15:16 Last Admin: 05/30/21 03:40 Dose: 30 mg Documented by: BARBARA Pharmacy Consult (Consult Rx Perform Med Rec) 1 each MISCELLANE ONCE PRN PRN Reason: Consult order Sodium Chloride (0.9 % Sodium Chloride Flush 3 Ml Syringe) 3 ml IVFLUSH QSHIFT [facility] Last Admin: 05/30/21 09:52 Dose: 3 ml Documented by: JOI Vitamin D (Cholecalciferol (Vitamin D3) 25 Mcg Tablet) 50 mcg PO DAILY [facility] Last Admin: 05/30/21 09:54 Dose: 50 mcg Documented by: JOI <Elena Concepcion NP - Last Filed: 05/30/21 11:02> Labs CBC & Chem 7: : 06/07/21 09:16 06/07/21 09:16 <Elena Concepcion NP - Last Filed: 05/30/21 11:02> Labs: Laboratory Results - last 24 hr 05/29/21 05/30/21 05/30/21 15:18 08:34 08:34 MCV 85.2 MCH 28.0 MCHC 32.8 RDW 12.6 Plt Count 326 D MPV 9.0 L Absolute Nucleated RBC 0.000 Nucleated RBC % (auto) 0.0 Anion Gap 14 Estim Creat Clear Calc 89.8 Estimated GFR > 60 Random Glucose 126 H Calcium 9.0 Ferritin Lactate Dehydrogenase Procalcitonin COVID-19 ([facility]) Positive A COVID-19 Clin Com See Note 05/30/21 05/30/21 08:34 08:34 MCV MCH MCHC RDW Plt Count MPV Absolute Nucleated RBC Nucleated RBC % (auto) Anion Gap Estim Creat Clear Calc Estimated GFR Random Glucose Calcium Ferritin 1929 H Lactate Dehydrogenase 686 H Procalcitonin 0.21 COVID-19 ([facility]) COVID-19 Clin Com <Elena Concepcion NP - Last Filed: 05/30/21 11:02> Microbiology Microbiology Results: Microbiology 05/28/21 14:06 Blood Culture - Preliminary Blood - Venous No growth after 24 hours. 05/28/21 13:44 Blood Culture - Preliminary Blood - Venous No growth after 24 hours. <Elena Concepcion NP - Last Filed: 05/30/21 11:02> Assessment and Plan (1) Acute respiratory failure with hypoxia: Status: Acute <Elena Concepcion NP - Last Filed: 05/30/21 11:02> (2) Pneumonia due to COVID-19 virus: Status: Acute <Elena Concepcion NP - Last Filed: 05/30/21 11:02> (3) Anxiety: Status: Acute <Elena Concepcion NP - Last Filed: 05/30/21 11:02> Assessment and Plan: 30-year-old woman presented to the complaints of increased shortness of fever several days. Sepsis.? Fever, tachycardia, tachypnea.? Viral COVID Follow blood cultures Acute hypoxic respiratory failure secondary to COVID-19 Decadron, Vitamin-C, vitamin-D and Pepcid Supplemental oxygen as needed, on 7liters sating 90-94% ID consult Will add rocephin and azithromycin for continuous fevers Anxiety Will add small dose of prn ativan Hypokalemia. Repleted follow BMP DVT prophylaxis with Lovenox Attending Dr. Barger Full code <Elena Concepcion NP - Last Filed: 05/30/21 11:02> 30-year-old woman presented to the complaints of increased shortness of fever several days. Sepsis.? Fever, tachycardia, tachypnea.? Viral COVID Follow blood cultures Acute hypoxic respiratory failure secondary to COVID-19 Decadron, Vitamin-C, vitamin-D and Pepcid Supplemental oxygen as needed, on 7liters sating 90-94% ID consult Will add rocephin and azithromycin for continuous fevers Anxiety Will add small dose of prn ativan Hypokalemia. Repleted follow BMP DVT prophylaxis with Lovenox Attending Dr. Barger Full code Chart reviewed/patient examined. Agree with history and physical and plan as outlined by Ms. Concepcion <Pasha Barger DO - Last Filed: 06/08/21 17:05> Quality Stroke Does the patient have a stroke diagnosis?: No <Elena Concepcion NP - Last Filed: 05/30/21 11:02> VTE Prior VTE?: No <Elena Concepcion NP - Last Filed: 05/30/21 11:02> VTE Risk Level:: Medical - moderate - high <Elena Concepcion NP - Last Filed: 05/30/21 11:02> VTE Device Contraindication: Treatment Not Indicated <Elena Concepcion NP - Last Filed: 05/30/21 11:02> VTE Drug Contraindication: N/A - Med Ordered <Elena Concepcion NP - Last Filed: 05/30/21 11:02>
[2021-05-30] MEDS: LORazepam 0.5 MG TABLET 0.25 MG PO ×2 (11:27→20:20)
[2021-05-30] MEDS: Ibuprofen 400 MG TABLET PO (12:07)
--- NOTE | 2021-05-30 15:06 | W.PM.IDCN ---
History of Present Illness Data of Consult Service Date: 05/30/21 Requesting physician: Elena Concepcion Primary Care Provider: None Physician HPI Reason for consult: shortness of breath She presents with shortness of breath and cough. She has positive COVID test. She has had test on 05/22 and now is day 8 She has been on nasal cannula and then room air. She was started on IV Ceftriaxone and Zmax. Review of Systems Review of Systems: Yes all other systems are reviewed and are negative PMFSH Past Medical History Medical History No pertinent past medical history Sepsis Family History Family History Mother Lung cancer Surgical History Surgical History No pertinent past surgical history Social History Social History Household Members: Significant Other Alcohol intake: current Alcohol intake frequency: holidays/special occasions only Patient Tobacco Use Status: Never used Tobacco service: No Current occupational status: employed Meds Allergies Allergy/AdvReac Type Severity Reaction Status Date / Time No Known Allergies Allergy Verified 05/28/21 12:34 Active Medications: Current Medications Acetaminophen (Acetaminophen 325 Mg Tablet) 650 mg PO Q4H PRN PRN Reason: pain and or fever Last Admin: 05/30/21 11:28 Dose: 650 mg Documented by: Ascorbic Acid (Ascorbic Acid 500 Mg Tablet) 1,000 mg PO DAILY [facility] Last Admin: 05/30/21 09:54 Dose: 1,000 mg Documented by: Dexamethasone Sodium Phosphate (Dexamethasone Sod Phosphate 4 Mg/Ml Vial) 6 mg IVPUSH DAILY [facility] Last Admin: 05/30/21 09:52 Dose: 6 mg Documented by: Enoxaparin Sodium (Enoxaparin Sodium 40 Mg/0.4 Ml Syringe) 40 mg SUBCUT Q24H [facility] Last Admin: 05/29/21 15:23 Dose: 40 mg Documented by: Famotidine (Famotidine/Pf 20 Mg/2 Ml Vial) 20 mg IVPUSH DAILY [facility] Last Admin: 05/30/21 09:56 Dose: 20 mg Documented by: Ibuprofen (Ibuprofen 400 Mg Tablet) 400 mg PO Q6H PRN PRN Reason: Fever Last Admin: 05/30/21 12:07 Dose: 400 mg Documented by: Lorazepam (Lorazepam 0.5 Mg Tablet) 0.25 mg PO Q8H PRN PRN Reason: anxiety Last Admin: 05/30/21 11:27 Dose: 0.25 mg Documented by: Pharmacy Consult (Consult Rx Perform Med Rec) 1 each MISCELLANE ONCE PRN PRN Reason: Consult order Sodium Chloride (0.9 % Sodium Chloride Flush 3 Ml Syringe) 3 ml IVFLUSH QSHIFT [facility] Last Admin: 05/30/21 09:52 Dose: 3 ml Documented by: Vitamin D (Cholecalciferol (Vitamin D3) 25 Mcg Tablet) 50 mcg PO DAILY [facility] Last Admin: 05/30/21 09:54 Dose: 50 mcg Documented by: Home Medications Medication Instructions Recorded Confirmed Last Taken Type No Known Home Meds 05/28/21 05/28/21 Unknown History Physical Exam Vital Signs: Vital Signs: Last Vital Signs Temp 96.6 F L 05/30/21 14:58 Pulse 107 H 05/30/21 14:58 Resp 20 05/30/21 14:58 BP 100/56 L 05/30/21 14:58 Pulse Ox 90 L 05/30/21 14:58 BMI result Body Mass Index 31.7 Const: General: cooperative Orientation/consciousness: patient oriented x3 HENMT: Head: Yes normal to inspection Mouth: Normal oral and palatal mucosa present Resp: Effort & Inspection: normal respiratory effort and able to speak in complete sentences Cardio: Rate: regular rate Rhythm: regular rhythm GI: Palpation (GI): nontender Neuro: General: patient oriented x3 Results Labs CBC & Chem 7: 05/30/21 08:34 05/30/21 08:34 Labs: Short CBC 05/30/21 Range/Units 08:34 WBC 7.7 (4.8-10.8) X10*3/uL Hgb 13.2 (12.0-16.0) g/dl Hct 40.2 (37.0-47.0) % Plt Count 326 D (160-400) X10*3/uL BMP 05/30/21 08:34 Sodium 138 Potassium 3.7 Chloride 98 Carbon Dioxide 30 H BUN 18 H Creatinine 0.96 Calcium 9.0 Microbiology Microbiology Results: Microbiology 05/28/21 14:06 Blood - Venous Blood Culture - Preliminary No growth after 24 hours. 05/28/21 13:44 Blood - Venous Blood Culture - Preliminary No growth after 24 hours. Assessment and Plan (1) Acute respiratory failure with hypoxia: Status: Acute She has high temperatures with inflammatory response At this time no evidence of bacterial pneumonia or OI She has been receiving workup for PE (2) Pneumonia due to COVID-19 virus: Status: Acute Continue Dexamethasone but stop if remains on RA No need for antibiotics at this point There is no need for baricitinib or Remdesivir
[2021-05-30] MEDS: Enoxaparin Sodium 40 MG/0.4 ML SYRINGE SUBCUT (15:35)
[2021-05-31] MEDS: 0.9 % Sodium Chloride Flush 3 ML SYRINGE IVFLUSH ×4 (00:10→20:11)
[2021-05-31] MEDS: LORazepam 0.5 MG TABLET PO (01:41)
[2021-05-31 03:15] VITALS: BP 120/75; PULSE 90; RESP 17; TEMP 37.4; O2SAT 92
--- NOTE | 2021-05-31 07:20 | PC.NURSE ---
0120 pt c/o sob, pt noted to be flat in bed (orthopnea). also c/o anxiety. stated previous ativan 0.25mg po was ineffective in relieving her anxiety. practiced slow deep breathing sat 85-86% on 7L [place] cannula, adjusted to 9L [place] & elevated hob with some relief. call plced to dr. adames, hospitalist - 1x order received for ativan 0.5mg po and atarax prn. plan discussed with pt to medicate with ativan 0.5mg po, given 0142 with relief. Pt made aware of prn atarax if anxiety not relieved. check on pt @ 0215 - sleeping. in am, 0500 pt reports anxiety was relieved and does not require further mediction. emotional support given with effect
[2021-05-31 07:35] VITALS: BP 114/71; PULSE 80; RESP 19; TEMP 36.1; O2SAT 96
[2021-05-31] MEDS: dexAMETHasone sod phosphate 4 MG/ML VIAL 6 MG IVPUSH (09:49)
[2021-05-31] MEDS: Famotidine/PF 20 MG/2 ML VIAL IVPUSH (09:49)
[2021-05-31] MEDS: Cholecalciferol (Vitamin D3) 25 MCG TABLET 50 MCG PO (09:52)
[2021-05-31] MEDS: Ascorbic Acid 500 MG TABLET 1000 MG PO (09:52)
[2021-05-31] MEDS: LORazepam 0.5 MG TABLET 0.25 MG PO ×2 (09:53→17:53)
[2021-05-31 11:15] VITALS: BP 122/74; PULSE 94; RESP 20; TEMP 37.3; O2SAT 92
--- NOTE | 2021-05-31 12:45 | HO.PM.IMPN ---
Subjective Subjective Date of Service: 05/31/21 Review of Systems Follow-up COVID-19 Anxiety seems to be better with Ativan Some shortness of breath with ambulation Out of bed to chair Physical Exam Vital Signs: Vital Signs: Last Vital Signs Temp 99.2 F 05/31/21 11:15 Pulse 94 05/31/21 11:15 Resp 20 05/31/21 11:15 BP 122/74 05/31/21 11:15 Pulse Ox 92 05/31/21 11:15 BMI result Body Mass Index 31.7 Appearing in no acute distress lungs normal expansion heart regular rate rhythm, clear S1, S2 positive bowel sounds, abdomen is soft, nontender neuro patient is alert x3, no focal deficits Objective Data Active Medications Acetaminophen (Acetaminophen 325 Mg Tablet) 650 mg PO Q4H PRN PRN Reason: pain and or fever Last Admin: 05/30/21 23:59 Dose: 650 mg Documented by: MEE Ascorbic Acid (Ascorbic Acid 500 Mg Tablet) 1,000 mg PO DAILY [facility] Last Admin: 05/31/21 09:52 Dose: 1,000 mg Documented by: JOI Dexamethasone Sodium Phosphate (Dexamethasone Sod Phosphate 4 Mg/Ml Vial) 6 mg IVPUSH DAILY [facility] Last Admin: 05/31/21 09:49 Dose: 6 mg Documented by: JOI Comments: Enoxaparin Sodium (Enoxaparin Sodium 40 Mg/0.4 Ml Syringe) 40 mg SUBCUT Q24H [facility] Last Admin: 05/30/21 15:35 Dose: 40 mg Documented by: ELIGIO Famotidine (Famotidine/Pf 20 Mg/2 Ml Vial) 20 mg IVPUSH DAILY [facility] Last Admin: 05/31/21 09:49 Dose: 20 mg Documented by: JOI Hydroxyzine HCl (Hydroxyzine Hcl 50 Mg Tablet) 50 mg PO Q6H PRN PRN Reason: Anxiety Ibuprofen (Ibuprofen 400 Mg Tablet) 400 mg PO Q6H PRN PRN Reason: Fever Last Admin: 05/30/21 12:07 Dose: 400 mg Documented by: JOI Lorazepam (Lorazepam 0.5 Mg Tablet) 0.25 mg PO Q8H PRN PRN Reason: anxiety Last Admin: 05/31/21 09:53 Dose: 0.25 mg Documented by: JOI Pharmacy Consult (Consult Rx Perform Med Rec) 1 each MISCELLANE ONCE PRN PRN Reason: Consult order Sodium Chloride (0.9 % Sodium Chloride Flush 3 Ml Syringe) 3 ml IVFLUSH QSHIFT [facility] Last Admin: 05/31/21 09:50 Dose: 3 ml Documented by: JOI Vitamin D (Cholecalciferol (Vitamin D3) 25 Mcg Tablet) 50 mcg PO DAILY [facility] Last Admin: 05/31/21 09:52 Dose: 50 mcg Documented by: JIO Labs CBC & Chem 7: 05/30/21 08:34 05/30/21 08:34 Microbiology Microbiology Results: Microbiology 05/28/21 14:06 Blood Culture - Preliminary Blood - Venous No growth after 48 hours. 05/28/21 13:44 Blood Culture - Preliminary Blood - Venous No growth after 48 hours. Assessment and Plan (1) Anxiety: Status: Acute (2) Pneumonia due to COVID-19 virus: Status: Acute Assessment and Plan: 30-year-old woman presented to the complaints of increased shortness of fever several days. Sepsis.? Resolved Fever, tachycardia, tachypnea.? Viral COVID Follow blood cultures Acute hypoxic respiratory failure secondary to COVID-19 Decadron, Vitamin-C, vitamin-D and Pepcid Supplemental oxygen as needed, on 11 Liters sating 90-94% ID consult rec stopping abx and not requiring baricitinib or Remdesivir this time mucinex for cough Anxiety Will add small dose of prn ativan Hypokalemia. Repleted follow BMP DVT prophylaxis with Lovenox Attending Dr. Conley Full code Quality Stroke Does the patient have a stroke diagnosis?: No VTE Prior VTE?: No VTE Risk Level:: Medical - moderate - high VTE Device Contraindication: Treatment Not Indicated VTE Drug Contraindication: N/A - Med Ordered
[2021-05-31] MEDS: hydrOXYzine HCL 50 MG TABLET PO ×2 (13:16→20:10)
[2021-05-31] MEDS: guaiFENesin LA 600 MG TAB.ER.12H PO ×2 (13:17→20:10)
[2021-05-31 15:23] VITALS: BP 113/72; PULSE 76; RESP 18; TEMP 37.1; O2SAT 95
[2021-05-31] MEDS: Enoxaparin Sodium 40 MG/0.4 ML SYRINGE SUBCUT (16:02)
[2021-05-31 19:46] VITALS: BP 118/73; PULSE 90; RESP 17; TEMP 36.7; O2SAT 92
--- NOTE | 2021-05-31 23:53 | PC.NURSE ---
Pt c/o of congestion which is causing her to not be able to breath. Pt is on Mucinex BID - HS dose given. Pt also given hot drinks. Humidified O2. No change. Pt has anxiety and was given Atarax around [address] Gutierrez notified. O2 sat 92% on 7L [place]. Will continue to monitor.
[2021-05-31 23:59] VITALS: BP 120/59; PULSE 65; RESP 18; TEMP 37; O2SAT 92
[2021-06-01] MEDS: LORazepam 0.5 MG TABLET PO (00:17)
[2021-06-01] MEDS: LORazepam 0.5 MG TABLET 0.25 MG PO ×2 (03:13→21:06)
[2021-06-01 03:37] VITALS: BP 119/79; PULSE 88; RESP 20; TEMP 36.7; O2SAT 94
[2021-06-01 07:38] LABS: Hematocrit 38.1 % (37.0-47.0); Hemoglobin 12.8 g/dl (12.0-16.0); Mean Corpuscular HGB Conc 33.6 g/dl (31.0-35.0); Mean Corpuscular Hemoglobin 28.4 pg (27.0-33.0); Mean Corpuscular Volume 84.7 fL (80.0-98.0); Mean Platelet Volume 9.3 fL (9.4-12.3); Platelet Count 427 X10*3/uL (160-400); Red Cell Distribution Width 12.5 % (11.0-16.0); White Blood Count 7.3 X10*3/uL (4.8-10.8)
[2021-06-01 07:52] VITALS: BP 100/63; PULSE 73; RESP 18; TEMP 36.6; O2SAT 91
[2021-06-01 08:06] LABS: Anion Gap 16 (12-20); Blood Urea Nitrogen 12 mg/dL (9-16); Calcium 8.8 mg/dL (8.4-10.2); Carbon Dioxide 26 mmol/L (22-29); Chloride 97 mmol/L (96-108); Estimated Glomerular Filt Rate > 60; Glucose Random 120 mg/dL (60-115); Lactate Dehydrogenase 830 U/L (122-220); Potassium 3.9 mmol/L (3.3-5.1); Sodium 135 mmol/L (135-145)
[2021-06-01 08:30] LABS: Procalcitonin 0.09 ng/mL
[2021-06-01] MEDS: dexAMETHasone sod phosphate 4 MG/ML VIAL 6 MG IVPUSH (09:17)
[2021-06-01] MEDS: Famotidine/PF 20 MG/2 ML VIAL IVPUSH (09:17)
[2021-06-01] MEDS: 0.9 % Sodium Chloride Flush 3 ML SYRINGE IVFLUSH ×2 (09:18→17:24)
[2021-06-01] MEDS: Cholecalciferol (Vitamin D3) 25 MCG TABLET 50 MCG PO (09:18)
[2021-06-01] MEDS: Ascorbic Acid 500 MG TABLET 1000 MG PO (09:18)
[2021-06-01] MEDS: guaiFENesin LA 600 MG TAB.ER.12H PO ×2 (09:18→20:57)
[2021-06-01 09:22] LABS: Ferritin 1370 ng/mL (10-122)
--- NOTE | 2021-06-01 09:56 | P.PNIM_ITS ---
Subjective Subjective Date of Service: 06/01/21 Review of Systems Follow-up COVID-19 Anxiety seems to be better with Ativan Some shortness of breath with ambulation Out of bed to chair Physical Exam Vital Signs: Vital Signs: Last Vital Signs Temp 97.8 F 06/01/21 07:52 Pulse 73 06/01/21 07:52 Resp 18 06/01/21 07:52 BP 100/63 06/01/21 07:52 Pulse Ox 91 L 06/01/21 07:52 BMI result Body Mass Index 31.7 Appearing in no acute distress lungs normal expansion heart regular rate rhythm, clear S1, S2 positive bowel sounds, abdomen is soft, nontender neuro patient is alert x3, no focal deficits Objective Data Active Medications Acetaminophen (Acetaminophen 325 Mg Tablet) 650 mg PO Q4H PRN PRN Reason: pain and or fever Last Admin: 05/30/21 23:59 Dose: 650 mg Documented by: MEE Ascorbic Acid (Ascorbic Acid 500 Mg Tablet) 1,000 mg PO DAILY [facility] Last Admin: 06/01/21 09:18 Dose: 1,000 mg Documented by: SOHEILA Dexamethasone Sodium Phosphate (Dexamethasone Sod Phosphate 4 Mg/Ml Vial) 6 mg IVPUSH DAILY [facility] Last Admin: 06/01/21 09:17 Dose: 6 mg Documented by: SOHEILA Enoxaparin Sodium (Enoxaparin Sodium 40 Mg/0.4 Ml Syringe) 40 mg SUBCUT Q24H [facility] Last Admin: 05/31/21 16:02 Dose: 40 mg Documented by: MARGYVELPop Famotidine (Famotidine/Pf 20 Mg/2 Ml Vial) 20 mg IVPUSH DAILY [facility] Last Admin: 06/01/21 09:17 Dose: 20 mg Documented by: SOHEILA Guaifenesin (Guaifenesin La 600 Mg Tab.Er.12h) 600 mg PO BID [facility] Last Admin: 06/01/21 09:18 Dose: 600 mg Documented by: SOHEILA Hydroxyzine HCl (Hydroxyzine Hcl 50 Mg Tablet) 50 mg PO Q6H PRN PRN Reason: Anxiety Last Admin: 05/31/21 20:10 Dose: 50 mg Documented by: DANAE Ibuprofen (Ibuprofen 400 Mg Tablet) 400 mg PO Q6H PRN PRN Reason: Fever Last Admin: 05/30/21 12:07 Dose: 400 mg Documented by: JOI Lorazepam (Lorazepam 0.5 Mg Tablet) 0.25 mg PO Q8H PRN PRN Reason: anxiety Last Admin: 06/01/21 03:13 Dose: 0.25 mg Documented by: DANAE Pharmacy Consult (Consult Rx Perform Med Rec) 1 each MISCELLANE ONCE PRN PRN Reason: Consult order Sodium Chloride (0.9 % Sodium Chloride Flush 3 Ml Syringe) 3 ml IVFLUSH QSHIFT [facility] Last Admin: 06/01/21 09:18 Dose: 3 ml Documented by: SOHEILA Vitamin D (Cholecalciferol (Vitamin D3) 25 Mcg Tablet) 50 mcg PO DAILY [facility] Last Admin: 06/01/21 09:18 Dose: 50 mcg Documented by: SOHEILA Labs CBC & Chem 7: 06/01/21 06:56 06/01/21 06:56 Labs: Laboratory Results - last 24 hr 06/01/21 06/01/21 06/01/21 06:56 06:56 06:56 MCV 84.7 MCH 28.4 MCHC 33.6 RDW 12.5 Plt Count 427 H D MPV 9.3 L Absolute Nucleated RBC 0.000 Nucleated RBC % (auto) 0.0 Anion Gap 16 Estim Creat Clear Calc 139.0 Estimated GFR > 60 Random Glucose 120 H Calcium 8.8 Ferritin 1370 H Lactate Dehydrogenase 830 H Procalcitonin 0.09 Assessment and Plan (1) Anxiety: Status: Acute (2) Acute respiratory failure with hypoxia: Status: Acute (3) Pneumonia due to COVID-19 virus: Status: Acute Assessment and Plan: 30-year-old woman presented to the complaints of increased shortness of fever several days. Sepsis.? Resolved Fever, tachycardia, tachypnea.? Viral COVID Follow blood cultures Acute hypoxic respiratory failure secondary to COVID-19 Decadron, Vitamin-C, vitamin-D and Pepcid Supplemental oxygen as needed, on 11 Liters sating 90-94% ID consult rec stopping abx and not requiring baricitinib or Remdesivir this time mucinex for cough Anxiety Will add small dose of prn ativan Hypokalemia. Repleted follow BMP DVT prophylaxis with Lovenox Attending Dr. Conley Full code Quality Stroke Does the patient have a stroke diagnosis?: No VTE Prior VTE?: No VTE Risk Level:: Medical - moderate - high VTE Device Contraindication: Treatment Not Indicated VTE Drug Contraindication: N/A - Med Ordered
[2021-06-01 11:26] VITALS: BP 113/69; PULSE 89; RESP 20; TEMP 36.7; O2SAT 92
--- NOTE | 2021-06-01 11:39 | MHC.CM.PN ---
Per ROUNDS discussion, Patient is not yet medically cleared for dc (IV Decadron, IV Pepcid, 11L O2); Home is the goal for dc and CM will follow for possible need to adjust the dc plan.
[2021-06-01 15:30] VITALS: BP 112/67; PULSE 74; RESP 18; TEMP 36.8; O2SAT 96
[2021-06-01] MEDS: Enoxaparin Sodium 40 MG/0.4 ML SYRINGE SUBCUT (17:23)
[2021-06-01 19:44] VITALS: BP 114/80; PULSE 78; RESP 18; TEMP 36.6; O2SAT 92
[2021-06-01 23:01] VITALS: BP 117/76; PULSE 75; RESP 20; TEMP 37.3; O2SAT 94
[2021-06-02] MEDS: 0.9 % Sodium Chloride Flush 3 ML SYRINGE IVFLUSH ×4 (00:39→20:17)
[2021-06-02] MEDS: hydrOXYzine HCL 50 MG TABLET PO ×3 (00:39→20:17)
[2021-06-02 03:09] VITALS: BP 113/63; PULSE 73; RESP 19; TEMP 36.4; O2SAT 98
[2021-06-02 08:17] VITALS: BP 111/66; PULSE 71; RESP 20; TEMP 36.3; O2SAT 96
[2021-06-02] MEDS: Ascorbic Acid 500 MG TABLET 1000 MG PO (09:58)
[2021-06-02] MEDS: Cholecalciferol (Vitamin D3) 25 MCG TABLET 50 MCG PO (09:58)
[2021-06-02] MEDS: guaiFENesin LA 600 MG TAB.ER.12H PO ×2 (09:58→20:17)
[2021-06-02] MEDS: Famotidine/PF 20 MG/2 ML VIAL IVPUSH (09:58)
[2021-06-02] MEDS: LORazepam 0.5 MG TABLET 0.25 MG PO ×2 (09:58→23:41)
[2021-06-02] MEDS: dexAMETHasone sod phosphate 4 MG/ML VIAL 6 MG IVPUSH (09:59)
[2021-06-02 11:25] VITALS: BP 118/68; PULSE 88; RESP 20; TEMP 37.3; O2SAT 95
[2021-06-02] MEDS: Enoxaparin Sodium 40 MG/0.4 ML SYRINGE SUBCUT (15:01)
[2021-06-02 16:00] VITALS: BP 114/86; PULSE 72; RESP 18; TEMP 37.1; O2SAT 98
--- NOTE | 2021-06-02 17:24 | HO.PM.IMPN ---
Subjective Subjective Date of Service: 06/02/21 Interval History: seen and examined this morning follow up for covid 19 still feeling short of breath, especially with movement feeling anxious, feels cold Review of Systems Review of Systems: Yes all other systems are reviewed and are negative Constitutional Constitutional: Denies fever(s) Cardiovascular Cardiovascular: Denies chest pain Gastrointestinal Gastrointestinal: Denies abdominal pain Physical Exam Vital Signs: Vital Signs: Last Vital Signs Temp 98.7 F 06/02/21 16:00 Pulse 72 06/02/21 16:00 Resp 18 06/02/21 16:00 BP 114/86 06/02/21 16:00 Pulse Ox 98 06/02/21 16:00 BMI result Body Mass Index 31.7 Const: General: cooperative, no acute distress, alert and awake Nutritional Appearance: well nourished Orientation/consciousness: patient oriented x3 HENMT: Head: Yes normocephalic and Yes atraumatic Eyes: Sclerae: sclerae normal Resp: Effort & Inspection: normal respiratory effort and no respiratory distress Cardio: Rate: regular rate Rhythm: regular rhythm GI: Palpation (GI): Soft to palpation and nontender Neuro: General: patient oriented x3 Cranial nerves: Yes CN's II-XII intact bilaterally and Yes Bilaterally intact EOM present Extrem: General: Yes no pedal edema Objective Data Active Medications Acetaminophen (Acetaminophen 325 Mg Tablet) 650 mg PO Q4H PRN PRN Reason: pain and or fever Last Admin: 05/30/21 23:59 Dose: 650 mg Documented by: MEE Ascorbic Acid (Ascorbic Acid 500 Mg Tablet) 1,000 mg PO DAILY [facility] Last Admin: 06/02/21 09:58 Dose: 1,000 mg Documented by: CAROL Dexamethasone Sodium Phosphate (Dexamethasone Sod Phosphate 4 Mg/Ml Vial) 6 mg IVPUSH DAILY [facility] Last Admin: 06/02/21 09:59 Dose: 6 mg Documented by: CAROL Enoxaparin Sodium (Enoxaparin Sodium 40 Mg/0.4 Ml Syringe) 40 mg SUBCUT Q24H [facility] Last Admin: 06/02/21 15:01 Dose: 40 mg Documented by: CAROL Famotidine (Famotidine/Pf 20 Mg/2 Ml Vial) 20 mg IVPUSH DAILY [facility] Last Admin: 06/02/21 09:58 Dose: 20 mg Documented by: CAROL Guaifenesin (Guaifenesin La 600 Mg Tab.Er.12h) 600 mg PO BID [facility] Last Admin: 06/02/21 09:58 Dose: 600 mg Documented by: CAROL Hydroxyzine HCl (Hydroxyzine Hcl 50 Mg Tablet) 50 mg PO Q6H PRN PRN Reason: Anxiety Last Admin: 06/02/21 11:54 Dose: 50 mg Documented by: CAROL Ibuprofen (Ibuprofen 400 Mg Tablet) 400 mg PO Q6H PRN PRN Reason: Fever Last Admin: 05/30/21 12:07 Dose: 400 mg Documented by: BREVELPop Lorazepam (Lorazepam 0.5 Mg Tablet) 0.25 mg PO Q8H PRN PRN Reason: anxiety Last Admin: 06/02/21 09:58 Dose: 0.25 mg Documented by: CAROL Pharmacy Consult (Consult Rx Perform Med Rec) 1 each MISCELLANE ONCE PRN PRN Reason: Consult order Sodium Chloride (0.9 % Sodium Chloride Flush 3 Ml Syringe) 3 ml IVFLUSH QSHIFT [facility] Last Admin: 06/02/21 15:03 Dose: 3 ml Documented by: CAROL Vitamin D (Cholecalciferol (Vitamin D3) 25 Mcg Tablet) 50 mcg PO DAILY [facility] Last Admin: 06/02/21 09:58 Dose: 50 mcg Documented by: CAROL Labs CBC & Chem 7: 06/01/21 06:56 06/01/21 06:56 Microbiology Microbiology Results: Microbiology 05/28/21 14:06 Blood Culture - Final Blood - Venous No growth after 5 days. 05/28/21 13:44 Blood Culture - Final Blood - Venous No growth after 5 days. Assessment and Plan (1) Anxiety: Status: Acute (2) Acute respiratory failure with hypoxia: Status: Acute (3) Pneumonia due to COVID-19 virus: Status: Acute Assessment and Plan: 30-year-old woman presented to the complaints of increased shortness of fever several days. Sepsis.? Resolved Fever, tachycardia, tachypnea.? Viral COVID Follow blood cultures Acute hypoxic respiratory failure secondary to COVID-19 oxygen requirement stable Decadron, Vitamin-C, vitamin-D and Pepcid Supplemental oxygen as needed, on 11 Liters sating 90-94% ID consult rec stopping abx and not requiring baricitinib or Remdesivir this time mucinex for cough Anxiety continue prn ativan Hypokalemia. Repleted follow BMP DVT prophylaxis with Lovenox Attending Dr. Conley Full code Quality Stroke Does the patient have a stroke diagnosis?: No VTE Prior VTE?: No VTE Risk Level:: Medical - moderate - high VTE Device Contraindication: Treatment Not Indicated VTE Drug Contraindication: N/A - Med Ordered
[2021-06-02 19:20] VITALS: BP 129/68; PULSE 89; RESP 19; TEMP 36.4; O2SAT 95
[2021-06-02 23:10] VITALS: BP 119/61; PULSE 79; RESP 18; TEMP 37; O2SAT 94
[2021-06-03] MEDS: hydrOXYzine HCL 50 MG TABLET PO (04:19)
[2021-06-03 07:35] LABS: MANUAL DIFF FLAG NO
[2021-06-03 07:40] LABS: Basophils Percent Auto 0.1 % (0-2); Eosinophils Absolute Auto 0.1 X10*3/uL (0.0-0.4); Eosinophils Percent Auto 0.9 % (0-4); Hemoglobin 12.6 g/dl (12.0-16.0); Imm Gran Abs Auto 0.19 X10*3/uL (0.00-0.03); Imm Gran Pct Auto 1.6 % (0.0-0.4); Lymphocytes Absolute Auto 1.8 X10*3/uL (1.2-4.9); Lymphocytes Percent Auto 15.4 % (20-40); Mean Corpuscular HGB Conc 34.1 g/dl (31.0-35.0); Mean Corpuscular Hemoglobin 28.6 pg (27.0-33.0); Mean Corpuscular Volume 84.1 fL (80.0-98.0); Mean Platelet Volume 9.2 fL (9.4-12.3); Monocytes Absolute Auto 0.5 X10*3/uL (0.1-1.2); Monocytes Percent Auto 4.1 % (2-11); Neutrophils Absolute Auto 9.1 x10*3/uL (2.0-8.3); Neutrophils Percent Auto 77.9 % (45-73); Platelet Count 280 X10*3/uL (160-400); Red Cell Distribution Width 12.2 % (11.0-16.0); White Blood Count 11.7 X10*3/uL (4.8-10.8)
[2021-06-03 07:58] LABS: Anion Gap 13 (12-20); Blood Urea Nitrogen 8 mg/dL (9-16); C Reactive Protein 7.25 mg/dL (< or = 0.50); Calcium 8.4 mg/dL (8.4-10.2); Carbon Dioxide 27 mmol/L (22-29); Chloride 96 mmol/L (96-108); Creatinine Clr Calc Pharmacy 136.8; Estimated Glomerular Filt Rate > 60; Glucose Random 107 mg/dL (60-115); Lactate Dehydrogenase 802 U/L (122-220); Potassium 3.6 mmol/L (3.3-5.1); Sodium 132 mmol/L (135-145)
[2021-06-03 08:00] VITALS: BP 115/53; PULSE 102; RESP 20; TEMP 37.7; O2SAT 89
[2021-06-03 09:01] LABS: Ferritin 2348 ng/mL (10-122)
[2021-06-03] MEDS: dexAMETHasone sod phosphate 4 MG/ML VIAL 6 MG IVPUSH (09:20)
[2021-06-03] MEDS: 0.9 % Sodium Chloride Flush 3 ML SYRINGE IVFLUSH ×3 (09:20→20:39)
[2021-06-03] MEDS: Famotidine/PF 20 MG/2 ML VIAL IVPUSH (09:21)
[2021-06-03] MEDS: guaiFENesin LA 600 MG TAB.ER.12H PO ×2 (09:21→20:39)
[2021-06-03] MEDS: Cholecalciferol (Vitamin D3) 25 MCG TABLET 50 MCG PO (09:21)
[2021-06-03] MEDS: Ascorbic Acid 500 MG TABLET 1000 MG PO (09:21)
[2021-06-03 11:50] VITALS: BP 124/73; PULSE 98; RESP 22; TEMP 37.5; O2SAT 93
--- NOTE | 2021-06-03 11:54 | P.PNIM_ITS ---
Subjective Subjective Date of Service: 06/03/21 <DEE Huston - Last Filed: 06/03/21 12:00> 06/05/21 <Joaquín Lopez MD - Last Filed: 06/05/21 03:43> Interval History: seen and examined this morning follow up for covid 19 pneumonia feeling short of breath at rest and with ambulation intermittent cough, minimal phlegm production <DEE Huston - Last Filed: 06/03/21 12:00> Review of Systems Review of Systems: Yes all other systems are reviewed and are negative <DEE Huston - Last Filed: 06/03/21 12:00> Constitutional Constitutional: Denies chills and Denies fever(s) <DEE Huston - Last Filed: 06/03/21 12:00> Cardiovascular Cardiovascular: Denies chest pain and Reports dyspnea <DEE Huston - Last Filed: 06/03/21 12:00> Respiratory Respiratory: Reports cough and Reports dyspnea <DEE Huston - Last Filed: 06/03/21 12:00> Gastrointestinal Gastrointestinal: Denies abdominal pain <DEE Huston - Last Filed: 06/03/21 12:00> Physical Exam Vital Signs: Vital Signs: Last Vital Signs Temp 99.5 F 06/03/21 11:50 Pulse 98 06/03/21 11:50 Resp 22 H 06/03/21 11:50 BP 124/73 06/03/21 11:50 Pulse Ox 93 06/03/21 11:50 BMI result Body Mass Index 31.7 <DEE Huston - Last Filed: 06/03/21 12:00> Const: General: cooperative, no acute distress, alert and awake <DEE Huston - Last Filed: 06/03/21 12:00> Nutritional Appearance: well nourished <DEE Huston - Last Filed: 06/03/21 12:00> Orientation/consciousness: patient oriented x3 <DEE Huston - Last Filed: 06/03/21 12:00> HENMT: Head: Yes normocephalic and Yes atraumatic <DEE Huston - Last Filed: 06/03/21 12:00> Eyes: Sclerae: sclerae normal <DEE Huston - Last Filed: 06/03/21 12:00> Resp: Other: clear to auscultation <DEE Huston - Last Filed: 1 12:00> Effort & Inspection: tachypneic <DEE Huston - Last Filed: 06/03/21 12:00> Cardio: Rate: regular rate <DEE Huston - Last Filed: 06/03/21 12:00> Rhythm: regular rhythm <DEE Huston - Last Filed: 06/03/21 12:00> GI: Palpation (GI): Soft to palpation and nontender <DEE Huston - Last Filed: 06/03/21 12:00> Neuro: General: patient oriented x3 <DEE Huston - Last Filed: 06/03/21 12:00> Cranial nerves: Yes CN's II-XII intact bilaterally and Yes Bilaterally intact EOM present <DEE Huston - Last Filed: 06/03/21 12:00> Extrem: Other: able to move all 4 extremities spontaneously <DEE Huston - Last Filed: 06/03/21 12:00> General: Yes no pedal edema <DEE Huston - Last Filed: 06/03/21 12:00> Objective Data Active Medications Acetaminophen (Acetaminophen 325 Mg Tablet) 650 mg PO Q4H PRN PRN Reason: pain and or fever Last Admin: 05/30/21 23:59 Dose: 650 mg Documented by: MEE Ascorbic Acid (Ascorbic Acid 500 Mg Tablet) 1,000 mg PO DAILY [facility] Last Admin: 06/03/21 09:21 Dose: 1,000 mg Documented by: CAROL Dexamethasone Sodium Phosphate (Dexamethasone Sod Phosphate 4 Mg/Ml Vial) 6 mg IVPUSH DAILY [facility] Stop: 06/07/21 09:01 Last Admin: 06/03/21 09:20 Dose: 6 mg Documented by: CAROL Enoxaparin Sodium (Enoxaparin Sodium 40 Mg/0.4 Ml Syringe) 40 mg SUBCUT Q24H [facility] Last Admin: 06/02/21 15:01 Dose: 40 mg Documented by: CAROL Famotidine (Famotidine/Pf 20 Mg/2 Ml Vial) 20 mg IVPUSH DAILY [facility] Last Admin: 06/03/21 09:21 Dose: 20 mg Documented by: CAROL Guaifenesin (Guaifenesin La 600 Mg Tab.Er.12h) 600 mg PO BID [facility] Last Admin: 06/03/21 09:21 Dose: 600 mg Documented by: CAROL Hydroxyzine HCl (Hydroxyzine Hcl 50 Mg Tablet) 50 mg PO Q6H PRN PRN Reason: Anxiety Last Admin: 06/03/21 04:19 Dose: 50 mg Documented by: CASI Ibuprofen (Ibuprofen 400 Mg Tablet) 400 mg PO Q6H PRN PRN Reason: Fever Last Admin: 05/30/21 12:07 Dose: 400 mg Documented by: JOI Lorazepam (Lorazepam 0.5 Mg Tablet) 0.25 mg PO Q8H PRN PRN Reason: anxiety Last Admin: 06/02/21 23:41 Dose: 0.25 mg Documented by: CASI Pharmacy Consult (Consult Rx Perform Med Rec) 1 each MISCELLANE ONCE PRN PRN Reason: Consult order Sodium Chloride (0.9 % Sodium Chloride Flush 3 Ml Syringe) 3 ml IVFLUSH QSHIFT [facility] Last Admin: 06/03/21 09:20 Dose: 3 ml Documented by: CAROL Vitamin D (Cholecalciferol (Vitamin D3) 25 Mcg Tablet) 50 mcg PO DAILY [facility] Last Admin: 06/03/21 09:21 Dose: 50 mcg Documented by: CAROL <DEE Huston - Last Filed: 06/03/21 12:00> Labs CBC & Chem 7: : 06/03/21 07:06 06/03/21 07:06 <DEE Huston - Last Filed: 06/03/21 12:00> Labs: Laboratory Results - last 24 hr 06/03/21 06/03/21 07:06 07:06 MCV 84.1 MCH 28.6 MCHC 34.1 RDW 12.2 Plt Count 280 D MPV 9.2 L Immature Gran % (Auto) 1.6 H Neut % (Auto) 77.9 H Lymph % (Auto) 15.4 L [place] % (Auto) 4.1 Eos % (Auto) 0.9 Baso % (Auto) 0.1 Lymph # (Auto) 1.8 [place] # (Auto) 0.5 Eos # (Auto) 0.1 Baso # (Auto) 0.0 Abs Immat Gran (auto) 0.19 H Absolute Neuts (auto) 9.1 H Absolute Nucleated RBC 0.000 Nucleated RBC % (auto) 0.0 Anion Gap 13 Estim Creat Clear Calc 136.8 Estimated GFR > 60 Random Glucose 107 Calcium 8.4 Ferritin 2348 H Lactate Dehydrogenase 802 H C-Reactive Protein 7.25 H <DEE Huston - Last Filed: 06/03/21 12:00> Microbiology Microbiology Results: Microbiology 05/28/21 14:06 Blood Culture - Final Blood - Venous No growth after 5 days. 05/28/21 13:44 Blood Culture - Final Blood - Venous No growth after 5 days. <DEE Huston - Last Filed: 06/03/21 12:00> Assessment and Plan (1) Acute respiratory failure with hypoxia: Status: Acute <DEE Huston - Last Filed: 06/03/21 12:00> (2) Pneumonia due to COVID-19 virus: Status: Acute <DEE Huston - Last Filed: 06/03/21 12:00> Assessment and Plan: 30-year-old woman presented to the complaints of increased shortness of fever several days. Sepsis.? Resolved Fever, tachycardia, tachypnea.? Viral COVID Follow blood cultures Acute hypoxic respiratory failure secondary to COVID-19 unvaccinated against covid 19 oxygen requirement stable, but drops with ambulation ferritin, crp trending up repeat cxr 06/03 showing increase in bilateral infiltrates continue Decadron (day 6/10), Vitamin-C, vitamin-D and Pepcid Supplemental oxygen as needed Seen by ID rec stopping abx and not requiring baricitinib or Remdesivir this time mucinex for cough Anxiety continue prn ativan Hypokalemia. Repleted follow BMP DVT prophylaxis with Lovenox Attending Dr. Mlapah Full code <DEE Huston - Last Filed: 06/03/21 12:00> Quality Stroke Does the patient have a stroke diagnosis?: No <DEE Huston - Last Filed: 06/03/21 12:00> VTE Prior VTE?: No <DEE Huston - Last Filed: 06/03/21 12:00> VTE Risk Level:: Medical - moderate - high <DEE Huston - Last Filed: 06/03/21 12:00> VTE Device Contraindication: Treatment Not Indicated <DEE Huston - Last Filed: 06/03/21 12:00> VTE Drug Contraindication: N/A - Med Ordered <DEE Huston - Last Filed: 06/03/21 12:00>
[2021-06-03] MEDS: Acetaminophen 325 MG TABLET 650 MG PO (12:08)
[2021-06-03 14:57] VITALS: BP 127/76; PULSE 80; RESP 22; TEMP 36.8; O2SAT 93
[2021-06-03] MEDS: Enoxaparin Sodium 40 MG/0.4 ML SYRINGE SUBCUT (15:21)
[2021-06-03 19:17] VITALS: BP 112/68; PULSE 66; RESP 18; TEMP 36.4; O2SAT 95
[2021-06-03] MEDS: LORazepam 0.5 MG TABLET 0.25 MG PO (23:06)
[2021-06-03] MEDS: Throat Lozenge, Medicated LOZENGE 1 LOZENGE MUCOUS MEM (23:07)
[2021-06-03 23:43] VITALS: BP 117/67; PULSE 85; RESP 18; TEMP 37; O2SAT 92
[2021-06-04] VITALS (7 sets, daily range): BP systolic 115–120; BP diastolic 63–75; PULSE 81–94; RESP 18–20; TEMP 35.9–37.4; O2SAT 83–98
[2021-06-04] MEDS: 0.9 % Sodium Chloride Flush 3 ML SYRINGE IVFLUSH ×3 (07:46→20:24)
[2021-06-04] MEDS: Famotidine/PF 20 MG/2 ML VIAL IVPUSH (07:46)
[2021-06-04] MEDS: dexAMETHasone sod phosphate 4 MG/ML VIAL 6 MG IVPUSH (07:46)
[2021-06-04] MEDS: guaiFENesin LA 600 MG TAB.ER.12H PO ×2 (07:46→20:24)
[2021-06-04] MEDS: Cholecalciferol (Vitamin D3) 25 MCG TABLET 50 MCG PO (07:46)
[2021-06-04] MEDS: Ascorbic Acid 500 MG TABLET 1000 MG PO (07:46)
[2021-06-04] MEDS: hydrOXYzine HCL 50 MG TABLET PO ×2 (11:10→20:24)
--- NOTE | 2021-06-04 12:55 | P.PNIM_ITS ---
Subjective Subjective Date of Service: 06/04/21 <DEE Huston - Last Filed: 06/04/21 12:59> 06/05/21 <Joaquín Lopez MD - Last Filed: 06/05/21 03:44> Interval History: seen and examined this morning follow up for covid still with shortness of breath, especially with ambulation cough with clear phlegm <DEE Huston - Last Filed: 06/04/21 12:59> Review of Systems Review of Systems: Yes all other systems are reviewed and are negative <DEE Huston - Last Filed: 06/04/21 12:59> Constitutional Constitutional: Denies chills and Denies fever(s) <DEE Huston - Last Filed: 06/04/21 12:59> Cardiovascular Cardiovascular: Denies chest pain <DEE Huston - Last Filed: 06/04/21 12:59> Gastrointestinal Gastrointestinal: Denies abdominal pain <DEE Huston - Last Filed: 06/04/21 12:59> Physical Exam Vital Signs: Vital Signs: Last Vital Signs Temp 96.6 F L 06/04/21 11:46 Pulse 90 06/04/21 11:46 Resp 20 06/04/21 11:46 BP 115/75 06/04/21 11:46 Pulse Ox 97 06/04/21 11:46 BMI result Body Mass Index 31.7 <DEE Huston - Last Filed: 06/04/21 12:59> Const: General: cooperative, no acute distress, alert and awake <DEE Huston - Last Filed: 06/04/21 12:59> Nutritional Appearance: well nourished <DEE Huston Last Filed: 06/04/21 12:59> Orientation/consciousness: patient oriented x3 <DEE Huston Last Filed: 06/04/21 12:59> HENMT: Head: Yes normocephalic and Yes atraumatic <DEE Huston Last Filed: 06/04/21 12:59> Eyes: Sclerae: sclerae normal <DEE Huston - Last Filed: 06/04/21 12:59> Resp: Other: diminished <DEE Huston - Last Filed: 06/04/21 12:59> Effort & Inspection: tachypneic <DEE Huston - Last Filed: 06/04/21 12:59> Cardio: Rate: regular rate <DEE Huston - Last Filed: 06/04/21 12:59> Rhythm: regular rhythm <DEE Huston - Last Filed: 06/04/21 12:59> GI: Palpation (GI): Soft to palpation and nontender <DEE Huston - Last Filed: 06/04/21 12:59> Neuro: General: patient oriented x3 <DEE Huston - Last Filed: 06/04/21 12:59> Cranial nerves: Yes CN's II-XII intact bilaterally and Yes Bilaterally intact EOM present <DEE Huston - Last Filed: 06/04/21 12:59> Extrem: Other: able to move all 4 extremities spontaneously <DEE Huston - Last Filed: 06/04/21 12:59> General: Yes no pedal edema <DEE Huston - Last Filed: 06/04/21 12:59> Objective Data Active Medications Acetaminophen (Acetaminophen 325 Mg Tablet) 650 mg PO Q4H PRN PRN Reason: pain and or fever Last Admin: 06/03/21 12:08 Dose: 650 mg Documented by: CAROL Ascorbic Acid (Ascorbic Acid 500 Mg Tablet) 1,000 mg PO DAILY [facility] Last Admin: 06/04/21 07:46 Dose: 1,000 mg Documented by: ELOINA Benzocaine (Throat Lozenge, Medicated Lozenge) 1 lozenge MUCOUS MEM Q2H PRN PRN Reason: Sore Throat Last Admin: 06/03/21 23:07 Dose: 1 lozenge Documented by: JAVDI Dexamethasone Sodium Phosphate (Dexamethasone Sod Phosphate 4 Mg/Ml Vial) 6 mg IVPUSH DAILY [facility] Stop: 06/07/21 09:01 Last Admin: 06/04/21 07:46 Dose: 6 mg Documented by: ELOINA Enoxaparin Sodium (Enoxaparin Sodium 40 Mg/0.4 Ml Syringe) 40 mg SUBCUT Q24H [facility] Last Admin: 06/03/21 15:21 Dose: 40 mg Documented by: CAROL Famotidine (Famotidine/Pf 20 Mg/2 Ml Vial) 20 mg IVPUSH DAILY [facility] Last Admin: 06/04/21 07:46 Dose: 20 mg Documented by: ELOINA Guaifenesin (Guaifenesin La 600 Mg Tab.Er.12h) 600 mg PO BID [facility] Last Admin: 06/04/21 07:46 Dose: 600 mg Documented by: ELOINA Hydroxyzine HCl (Hydroxyzine Hcl 50 Mg Tablet) 50 mg PO Q6H PRN PRN Reason: Anxiety Last Admin: 06/04/21 11:10 Dose: 50 mg Documented by: ELOINA Ibuprofen (Ibuprofen 400 Mg Tablet) 400 mg PO Q6H PRN PRN Reason: Fever Last Admin: 05/30/21 12:07 Dose: 400 mg Documented by: JOI Pharmacy Consult (Consult Rx Perform Med Rec) 1 each MISCELLANE ONCE PRN PRN Reason: Consult order Sodium Chloride (0.9 % Sodium Chloride Flush 3 Ml Syringe) 3 ml IVFLUSH QSHIFT [facility] Last Admin: 06/04/21 07:46 Dose: 3 ml Documented by: ELOINA Vitamin D (Cholecalciferol (Vitamin D3) 25 Mcg Tablet) 50 mcg PO DAILY [facility] Last Admin: 06/04/21 07:46 Dose: 50 mcg Documented by: ELOINA <DEE Huston - Last Filed: 06/04/21 12:59> Labs CBC & Chem 7: : 06/03/21 07:06 06/03/21 07:06 <DEE Huston - Last Filed: 06/04/21 12:59> Assessment and Plan (1) Acute respiratory failure with hypoxia: Status: Acute <DEE Huston - Last Filed: 06/04/21 12:59> (2) Pneumonia due to COVID-19 virus: Status: Acute <DEE Huston - Last Filed: 06/04/21 12:59> Assessment and Plan: 30-year-old woman presented to the complaints of increased shortness of fever several days. Sepsis.? Resolved Fever, tachycardia, tachypnea.? Viral COVID Follow blood cultures Acute hypoxic respiratory failure secondary to COVID-19 unvaccinated against covid 19 oxygen requirement stable, but drops with ambulation ferritin, crp trending up repeat cxr 06/03 showing increase in bilateral infiltrates continue Decadron (day 12/11), Vitamin-C, vitamin-D and Pepcid Supplemental oxygen as needed, currently requiring 10L Seen by ID rec stopping abx and not candidate for baricitinib or Remdesivir mucinex for cough Anxiety continue prn ativan Hypokalemia. Repleted follow BMP DVT prophylaxis with Lovenox Attending Dr. Lopez Full code <DEE Huston - Last Filed: 06/04/21 12:59> Quality Stroke Does the patient have a stroke diagnosis?: No <DEE Huston - Last Filed: 06/04/21 12:59> VTE Prior VTE?: No <DEE Huston - Last Filed: 06/04/21 12:59> VTE Risk Level:: Medical - moderate - high <DEE Huston - Last Filed: 06/04/21 12:59> VTE Device Contraindication: Treatment Not Indicated <DEE Huston - Last Filed: 06/04/21 12:59> VTE Drug Contraindication: N/A - Med Ordered <DEE Huston - Last Filed: 06/04/21 12:59>
[2021-06-04] MEDS: Enoxaparin Sodium 40 MG/0.4 ML SYRINGE SUBCUT (15:27)
[2021-06-04] MEDS: Throat Lozenge, Medicated LOZENGE 1 LOZENGE MUCOUS MEM (20:24)
[2021-06-05] VITALS: BP 105/64; PULSE 88; RESP 20; TEMP 37.2; O2SAT 93
--- NOTE | 2021-06-05 02:04 | PC.NURSE ---
pt @ 1999 assmt with c/o congestion, dry npc cough noted. i/s 1250 x 8 repetitions - & enc c&db - strong cough noted. lungs with good aeration - very faint insp wheeze noted on L upper lobe.mucinex po bid - night time dose given. pt reports moderate amount of white productive sputum noted. and occas sob with sleep that awakens her. sats on 8L n/c 92%. repositioned pt to far Left lateral side after medicating with atarax 50mg po for anxiety @ 2023 along with cepacol losenge for sore throat. humidified o2, offered warm fluids, but declined for water instead. enc po intake. emotional support given with effect of decreased anxiety. a&o x person, place, needed correction on date but redirected easily. ox situation. able to change independently change from wall o2 to portable tank o2 with NRB to ambulate independently. aware of timing when atarax is due again. midnoc assmt no c/o pain or sob. far left lateral side - pt tolerating well. pt aware that when atarax was due, this RN would check on pt. 0145 pt recheck - pt noted to be sleeping resps easy/reg. sats 95% on monitor.
[2021-06-05] MEDS: hydrOXYzine HCL 50 MG TABLET PO ×2 (02:54→19:15)
[2021-06-05] MEDS: Acetaminophen 325 MG TABLET 650 MG PO (03:15)
[2021-06-05] MEDS: LORazepam 0.5 MG TABLET 0.25 MG PO (03:28)
[2021-06-05 03:33] VITALS: BP 105/60; PULSE 101; RESP 20; TEMP 37.2; O2SAT 92
--- NOTE | 2021-06-05 03:41 | PC.NURSE ---
pt rang c/o anxiety, insomnia, restless legs.. feels like she gets on the verge of sleep, never a deep sleep. atarax 50mg po given for anxiety & tylenol 650mg po, given for general chest wall discomfort with cough. coretext to Dr. Lopez, for medication to combine for sleep promotion. given ativan 0.25mg po as one time order. offer to reposition declined. removed tape from old iv site at [facility], slight redness noted, cool pack applied. sats remain 92-94% on 8L [place] cannula. emotional support given, lights dimmed, door closed to promote quiet.
[2021-06-05 07:35] VITALS: BP 112/67; PULSE 79; RESP 20; TEMP 36.4; O2SAT 91
[2021-06-05] MEDS: Cholecalciferol (Vitamin D3) 25 MCG TABLET 50 MCG PO (07:51)
[2021-06-05] MEDS: Famotidine/PF 20 MG/2 ML VIAL IVPUSH (07:51)
[2021-06-05] MEDS: dexAMETHasone sod phosphate 4 MG/ML VIAL 6 MG IVPUSH (07:51)
[2021-06-05] MEDS: guaiFENesin LA 600 MG TAB.ER.12H PO ×2 (07:52→19:39)
[2021-06-05] MEDS: Ascorbic Acid 500 MG TABLET 1000 MG PO (07:52)
[2021-06-05] MEDS: 0.9 % Sodium Chloride Flush 3 ML SYRINGE IVFLUSH ×2 (07:52→16:28)
[2021-06-05 11:22] VITALS: BP 110/67; PULSE 83; RESP 20; TEMP 36.7; O2SAT 94
--- NOTE | 2021-06-05 12:28 | PC.NURSE ---
Pt alert and oriented x4. denies pain but C/O some discomfort to the back and chest area. Pt is admitted with covid. LS dim throughout with dimness throughout. Pt is 10L [place] with NRB with ambu. Pt is also C/O SOB with exertion.
--- NOTE | 2021-06-05 14:56 | HO.PM.IMPN ---
Subjective Subjective Date of Service: 06/05/21 Interval History: seen and examined this morning follow up for covid 19 pneumonia desaturating with ambulation difficulty sleeping overnight Review of Systems Review of Systems: Yes all other systems are reviewed and are negative Constitutional Constitutional: Denies chills and Denies fever(s) Cardiovascular Cardiovascular: Denies chest pain and Reports dyspnea Respiratory Respiratory: Reports cough and Reports dyspnea Gastrointestinal Gastrointestinal: Denies abdominal pain Physical Exam Vital Signs: Vital Signs: Last Vital Signs Temp 98.0 F 06/05/21 11:22 Pulse 83 06/05/21 11:22 Resp 20 06/05/21 11:22 BP 110/67 06/05/21 11:22 Pulse Ox 94 06/05/21 11:22 BMI result Body Mass Index 31.7 Const: General: cooperative, no acute distress, alert and awake Nutritional Appearance: well nourished Orientation/consciousness: patient oriented x3 HENMT: Head: Yes normocephalic and Yes atraumatic Eyes: Sclerae: sclerae normal Pupils: Equal, round and reactive pupils present Resp: Other: diminished Effort & Inspection: tachypneic Cardio: Rate: regular rate Rhythm: regular rhythm GI: Inspection: No distended Palpation (GI): Soft to palpation and nontender Neuro: General: patient oriented x3 Cranial nerves: Yes CN's II-XII intact bilaterally, Yes Equal, round and reactive pupils present and Yes Bilaterally intact EOM present Extrem: Other: able to move all 4 extremities spontaneously; no leg edema General: Yes no pedal edema Objective Data Active Medications Acetaminophen (Acetaminophen 325 Mg Tablet) 650 mg PO Q4H PRN PRN Reason: pain and or fever Last Admin: 06/05/21 03:15 Dose: 650 mg Documented by: MEE Ascorbic Acid (Ascorbic Acid 500 Mg Tablet) 1,000 mg PO DAILY [facility] Last Admin: 06/05/21 07:52 Dose: 1,000 mg Documented by: AVIENOAL Benzocaine (Throat Lozenge, Medicated Lozenge) 1 lozenge MUCOUS MEM Q2H PRN PRN Reason: Sore Throat Last Admin: 06/04/21 20:24 Dose: 1 lozenge Documented by: MEE Dexamethasone Sodium Phosphate (Dexamethasone Sod Phosphate 4 Mg/Ml Vial) 6 mg IVPUSH DAILY [facility] Stop: 06/07/21 09:01 Last Admin: 06/05/21 07:51 Dose: 6 mg Documented by: ESTEBAN Enoxaparin Sodium (Enoxaparin Sodium 40 Mg/0.4 Ml Syringe) 40 mg SUBCUT Q24H [facility] Last Admin: 06/04/21 15:27 Dose: 40 mg Documented by: ELOINA Famotidine (Famotidine/Pf 20 Mg/2 Ml Vial) 20 mg IVPUSH DAILY [facility] Last Admin: 06/05/21 07:51 Dose: 20 mg Documented by: ESTEBAN Guaifenesin (Guaifenesin La 600 Mg Tab.Er.12h) 600 mg PO BID [facility] Last Admin: 06/05/21 07:52 Dose: 600 mg Documented by: ESTEBAN Hydroxyzine HCl (Hydroxyzine Hcl 50 Mg Tablet) 50 mg PO Q6H PRN PRN Reason: Anxiety Last Admin: 06/05/21 02:54 Dose: 50 mg Documented by: MEE Ibuprofen (Ibuprofen 400 Mg Tablet) 400 mg PO Q6H PRN PRN Reason: Fever Last Admin: 05/30/21 12:07 Dose: 400 mg Documented by: JOI Pharmacy Consult (Consult Rx Perform Med Rec) 1 each MISCELLANE ONCE PRN PRN Reason: Consult order Sodium Chloride (0.9 % Sodium Chloride Flush 3 Ml Syringe) 3 ml IVFLUSH QSHIFT [facility] Last Admin: 06/05/21 07:52 Dose: 3 ml Documented by: ESTEBAN Vitamin D (Cholecalciferol (Vitamin D3) 25 Mcg Tablet) 50 mcg PO DAILY [facility] Last Admin: 06/05/21 07:51 Dose: 50 mcg Documented by: ESTEBAN Labs CBC & Chem 7: 06/03/21 07:06 06/03/21 07:06 Assessment and Plan (1) Acute respiratory failure with hypoxia: Status: Acute (2) Pneumonia due to COVID-19 virus: Status: Acute Assessment and Plan: 30-year-old woman presented to the complaints of increased shortness of fever several days. Sepsis.? Resolved Fever, tachycardia, tachypnea.? Viral COVID Follow blood cultures Acute hypoxic respiratory failure secondary to COVID-19 unvaccinated against covid 19 oxygen requirement requirement trending up slight and drops with ambulation ferritin, crp trending up repeat cxr 12/31 showing increase in bilateral infiltrates continue Decadron (day 8/10), Vitamin-C, vitamin-D and Pepcid Supplemental oxygen as needed, currently requiring 10L Seen by ID rec stopping abx and not candidate for baricitinib or Remdesivir mucinex for cough -will repeat ddimer, if elevated will obtain CTA Anxiety continue prn ativan Hypokalemia. Repleted follow BMP DVT prophylaxis with Lovenox Attending Dr. Conley Full code Quality Stroke Does the patient have a stroke diagnosis?: No VTE Prior VTE?: No VTE Risk Level:: Medical - moderate - high VTE Device Contraindication: Treatment Not Indicated VTE Drug Contraindication: N/A - Med Ordered
[2021-06-05 15:34] VITALS: BP 127/75; PULSE 76; RESP 18; TEMP 37.1; O2SAT 95
[2021-06-05 15:40] LABS: D Dimer High Sensitivity 1236 NG/ML
[2021-06-05] MEDS: Enoxaparin Sodium 40 MG/0.4 ML SYRINGE SUBCUT (16:28)
[2021-06-05] MEDS: iohexoL 350 MG/ML 100 ML INFUS..BTL IV (17:39)
[2021-06-05 18:57] LABS: INTERNATIONAL NORM RATIO 1.3 (0.9-1.1); Prothrombin Time 14.3 SEC (9.9-13.0)
[2021-06-05 19:00] LABS: Partial Thromboplastin Time 28.1 SEC (24.1-38.0)
--- NOTE | 2021-06-05 19:04 | PM.CCN ---
Critical Care Event Note Summary Date of Service: 06/05/21 Code activated: No Narrative: Chart reviewed - 30 /o F with COVID, PE, pneumomediastinum, on 7L supplemental O2, hemodynamically stable with concern for right heart strain on CTA chest, no BNP or troponin available. Continue supplemental O2, anticogulation, dexamethasone. Consider addition of remdesevir. Check BNP, troponin, 2d echo. Start empiric prophylactic Unasyn. At this time does not require ICU level of care, please notify, if patient condition changes. Consider pulmonary consult in am. Recommendations discussed with Loida Morales. Critical Care Time (minutes): 0
[2021-06-05 19:09] VITALS: BP 142/63; PULSE 76; RESP 18; TEMP 37.1; O2SAT 96
[2021-06-05 19:10] LABS: B Type Natriuretic Peptide < 10 pg/mL (<100); Troponin-I High Sensitivity 7.2 ng/L (<3.5-17.0)
[2021-06-05] MEDS: Enoxaparin Sodium 60 MG/0.6 ML SYRINGE 45 MG SUBCUT (19:13)
[2021-06-05] MEDS: Ampicillin Sodium/Sulbactam Na 3 GM in 0.9 % Sodium Chloride 100 ML IV (19:39)
[2021-06-06] VITALS (8 sets, daily range): BP systolic 86–123; BP diastolic 61–77; PULSE 71–87; RESP 15–20; TEMP 35.9–36.9; O2SAT 91–100
[2021-06-06] MEDS: 0.9 % Sodium Chloride Flush 3 ML SYRINGE IVFLUSH ×4 (00:27→20:50)
[2021-06-06] MEDS: Ampicillin Sodium/Sulbactam Na 3 GM in 0.9 % Sodium Chloride 100 ML IV ×4 (00:27→18:44)
[2021-06-06] MEDS: hydrOXYzine HCL 50 MG TABLET PO ×3 (02:39→23:40)
[2021-06-06] MEDS: Acetaminophen 325 MG TABLET 650 MG PO ×2 (02:41→16:52)
[2021-06-06] MEDS: Throat Lozenge, Medicated LOZENGE 1 LOZENGE MUCOUS MEM (04:52)
[2021-06-06 07:29] LABS: MANUAL DIFF FLAG NO
[2021-06-06 07:33] LABS: Basophils Percent Auto 0.1 % (0-2); Eosinophils Absolute Auto 0.3 X10*3/uL (0.0-0.4); Eosinophils Percent Auto 2.2 % (0-4); Hematocrit 35.7 % (37.0-47.0); Hemoglobin 12.1 g/dl (12.0-16.0); Imm Gran Abs Auto 0.23 X10*3/uL (0.00-0.03); Imm Gran Pct Auto 1.9 % (0.0-0.4); Lymphocytes Absolute Auto 2.3 X10*3/uL (1.2-4.9); Lymphocytes Percent Auto 19.5 % (20-40); Mean Corpuscular HGB Conc 33.9 g/dl (31.0-35.0); Mean Corpuscular Hemoglobin 28.7 pg (27.0-33.0); Mean Corpuscular Volume 84.6 fL (80.0-98.0); Mean Platelet Volume 9.7 fL (9.4-12.3); Monocytes Absolute Auto 0.9 X10*3/uL (0.1-1.2); Monocytes Percent Auto 7.7 % (2-11); Neutrophils Absolute Auto 8.2 x10*3/uL (2.0-8.3); Neutrophils Percent Auto 68.6 % (45-73); Platelet Count 326 X10*3/uL (160-400); Red Blood Count 4.22 X10*6/uL (4.20-5.50); Red Cell Distribution Width 12.2 % (11.0-16.0); White Blood Count 11.9 X10*3/uL (4.8-10.8)
[2021-06-06] MEDS: Enoxaparin Sodium 100 MG/ML SYRINGE 85 MG SUBCUT ×2 (08:04→18:45)
[2021-06-06] MEDS: Ascorbic Acid 500 MG TABLET 1000 MG PO (08:05)
[2021-06-06] MEDS: Cholecalciferol (Vitamin D3) 25 MCG TABLET 50 MCG PO (08:05)
[2021-06-06] MEDS: dexAMETHasone sod phosphate 4 MG/ML VIAL 6 MG IVPUSH (08:05)
[2021-06-06] MEDS: guaiFENesin LA 600 MG TAB.ER.12H PO ×2 (08:05→20:50)
[2021-06-06] MEDS: Famotidine/PF 20 MG/2 ML VIAL IVPUSH (08:05)
[2021-06-06 09:35] LABS: Hematocrit 37.2 % (37.0-47.0); Hemoglobin 12.5 g/dl (12.0-16.0); Mean Corpuscular HGB Conc 33.6 g/dl (31.0-35.0); Mean Corpuscular Hemoglobin 28.5 pg (27.0-33.0); Mean Corpuscular Volume 84.9 fL (80.0-98.0); Mean Platelet Volume 9.6 fL (9.4-12.3); Platelet Count 335 X10*3/uL (160-400); Red Blood Count 4.38 X10*6/uL (4.20-5.50); Red Cell Distribution Width 12.2 % (11.0-16.0); White Blood Count 12.5 X10*3/uL (4.8-10.8)
[2021-06-06 09:48] LABS: Anion Gap 12 (12-20); Blood Urea Nitrogen 7 mg/dL (9-16); Calcium 8.9 mg/dL (8.4-10.2); Carbon Dioxide 32 mmol/L (22-29); Chloride 96 mmol/L (96-108); Estimated Glomerular Filt Rate > 60; Glucose Random 106 mg/dL (60-115); Lactate Dehydrogenase 675 U/L (122-220); Potassium 3.8 mmol/L (3.3-5.1); Sodium 136 mmol/L (135-145)
--- NOTE | 2021-06-06 10:00 | P.PNIM_ITS ---
Subjective Subjective Date of Service: 06/06/21 Review of Systems Follow up denver Goncalves stated that she is very anxious and scared. OOB to chair and bathroom Physical Exam Vital Signs: Vital Signs: Last Vital Signs Temp 97.7 F 06/06/21 07:44 Pulse 87 06/06/21 07:44 Resp 18 06/06/21 07:44 BP 115/67 06/06/21 07:44 Pulse Ox 98 06/06/21 07:44 BMI result Body Mass Index 31.7 Appearing in no acute distress lungs normal expansion heart regular rate rhythm, clear S1, S2 positive bowel sounds, abdomen is soft, nontender neuro patient is alert x3, no focal deficits Objective Data Active Medications Acetaminophen (Acetaminophen 325 Mg Tablet) 650 mg PO Q4H PRN PRN Reason: pain and or fever Last Admin: 06/06/21 02:41 Dose: 650 mg Documented by: SADE Ascorbic Acid (Ascorbic Acid 500 Mg Tablet) 1,000 mg PO DAILY [facility] Last Admin: 06/06/21 08:05 Dose: 1,000 mg Documented by: CONSTANTINO Benzocaine (Throat Lozenge, Medicated Lozenge) 1 lozenge MUCOUS MEM Q2H PRN PRN Reason: Sore Throat Last Admin: 06/06/21 04:52 Dose: 1 lozenge Documented by: SADE Dexamethasone Sodium Phosphate (Dexamethasone Sod Phosphate 4 Mg/Ml Vial) 6 mg IVPUSH DAILY [facility] Stop: 06/07/21 09:01 Last Admin: 06/06/21 08:05 Dose: 6 mg Documented by: CONSTANTINO Enoxaparin Sodium (Enoxaparin Sodium 100 Mg/Ml Syringe) 85 mg SUBCUT Q12H [facility] Last Admin: 06/06/21 08:04 Dose: 85 mg Documented by: CONSTANTINO Famotidine (Famotidine/Pf 20 Mg/2 Ml Vial) 20 mg IVPUSH DAILY [facility] Last Admin: 06/06/21 08:05 Dose: 20 mg Documented by: CONSTANTINO Guaifenesin (Guaifenesin La 600 Mg Tab.Er.12h) 600 mg PO BID [facility] Last Admin: 06/06/21 08:05 Dose: 600 mg Documented by: CONSTANTINO Hydroxyzine HCl (Hydroxyzine Hcl 50 Mg Tablet) 50 mg PO Q6H PRN PRN Reason: Anxiety Last Admin: 06/06/21 02:39 Dose: 50 mg Documented by: SADE Ampicillin Sodium/Sulbactam (Sodium 3 gm/ Sodium Chloride) 100 mls @ 200 mls/hr IV Q6H [facility] Last Infusion: 06/06/21 09:28 Dose: 0 mls/hr Documented by: CONSTANTINO Ibuprofen (Ibuprofen 400 Mg Tablet) 400 mg PO Q6H PRN PRN Reason: Fever Last Admin: 05/30/21 12:07 Dose: 400 mg Documented by: JOI Pharmacy Consult (Consult Rx Perform Med Rec) 1 each MISCELLANE ONCE PRN PRN Reason: Consult order Sodium Chloride (0.9 % Sodium Chloride Flush 3 Ml Syringe) 3 ml IVFLUSH QSHIFT [facility] Last Admin: 06/06/21 08:05 Dose: 3 ml Documented by: CONSTANTINO Vitamin D (Cholecalciferol (Vitamin D3) 25 Mcg Tablet) 50 mcg PO DAILY [facility] Last Admin: 06/06/21 08:05 Dose: 50 mcg Documented by: CONSTANTINO Labs CBC & Chem 7: 06/06/21 08:48 06/06/21 08:48 Labs: Laboratory Results - last 24 hr 06/05/21 06/05/21 06/05/21 15:02 18:38 18:38 MCV MCH MCHC RDW Plt Count MPV Immature Gran % (Auto) Neut % (Auto) Lymph % (Auto) Lynn % (Auto) Eos % (Auto) Baso % (Auto) Lymph # (Auto) Lynn # (Auto) Eos # (Auto) Baso # (Auto) Abs Immat Gran (auto) Absolute Neuts (auto) Absolute Nucleated RBC Nucleated RBC % (auto) PT 14.3 H INR 1.3 H APTT 28.1 D-Dimer High Sensitivty 1236 Anion Gap Estim Creat Clear Calc Estimated GFR Random Glucose Calcium Lactate Dehydrogenase Troponin I High Sens 7.2 B-Natriuretic Peptide < 10 06/06/21 06/06/21 06/06/21 06:59 08:48 08:48 MCV 84.6 MCH 28.7 MCHC 33.9 RDW 12.2 Plt Count 326 MPV 9.7 Immature Gran % (Auto) 1.9 H Neut % (Auto) 68.6 Lymph % (Auto) 19.5 L Lynn % (Auto) 7.7 Eos % (Auto) 2.2 Baso % (Auto) 0.1 Lymph # (Auto) 2.3 Lynn # (Auto) 0.9 Eos # (Auto) 0.3 Baso # (Auto) 0.0 Abs Immat Gran (auto) 0.23 H Absolute Neuts (auto) 8.2 Absolute Nucleated RBC 0.000 Nucleated RBC % (auto) 0.0 PT INR APTT D-Dimer High Sensitivty Anion Gap 12 Estim Creat Clear Calc 139.0 Estimated GFR > 60 Random Glucose 106 Calcium 8.9 Lactate Dehydrogenase 675 H Troponin I High Sens B-Natriuretic Peptide 06/06/21 08:48 MCV 84.9 MCH 28.5 MCHC 33.6 RDW 12.2 Plt Count 335 MPV 9.6 Immature Gran % (Auto) Neut % (Auto) Lymph % (Auto) Lynn % (Auto) Eos % (Auto) Baso % (Auto) Lymph # (Auto) Lynn # (Auto) Eos # (Auto) Baso # (Auto) Abs Immat Gran (auto) Absolute Neuts (auto) Absolute Nucleated RBC 0.000 Nucleated RBC % (auto) 0.0 PT INR APTT D-Dimer High Sensitivty Anion Gap Estim Creat Clear Calc Estimated GFR Random Glucose Calcium Lactate Dehydrogenase Troponin I High Sens B-Natriuretic Peptide Assessment and Plan (1) Pulmonary emboli: Status: Acute (2) Pneumomediastinum: Status: Acute Assessment and Plan: 30-year-old woman presented to the complaints of increased shortness of fever several days. unvaccinated. Pulmonary embolus. Initially found to have elevated D-dimer Chest CTA showed volume of acute pulmonary emboli most notable in the lobar, segmental and subsegmental branches of the lower lobe with right ventricular heart strain Started on therapeutic Lovenox Echocardiogram pending Venous Doppler ultrasound showing left mid tibial vein thrombosis no other DVT showing Pneumomediastinum Extending from the level of the diaphragmatic hiatus through the thoracic inlet into the cervical soft tissue Check lactate and troponin to assess for worsening of pneumomediastinum Respiratory status stable Acute hypoxic respiratory failure secondary to COVID-19, no further hypoxia Currently requiring 7 L of oxygen Decadron ( started 05/29/2021), vitamin-C, vitamin-D and Pepcid Seen by pulmonology with recommendation for tocilizumab for which she received today Sepsis.? Resolved Fever, tachycardia, tachypnea.? Viral COVID Follow blood cultures Anxiety continue prn ativan Hypokalemia. Repleted follow BMP DVT prophylaxis with therapeutic Lovenox Attending Dr. Conley Full code Quality Stroke Does the patient have a stroke diagnosis?: No VTE Prior VTE?: No VTE Risk Level:: Medical - moderate - high VTE Device Contraindication: Treatment Not Indicated VTE Drug Contraindication: N/A - Med Ordered
[2021-06-06 10:10] LABS: Ferritin 1394 ng/mL (10-122)
[2021-06-06 10:12] LABS: Procalcitonin 0.06 ng/mL
--- NOTE | 2021-06-06 12:59 | P.CONPL_ITS ---
History of Present Illness History of Present Illness Consult date: 06/06/21 Chief complaint: COVID 19 hypoxia Narrative: This is a pulmonary consultation. The patient is a 30 year old unva ccinated women presenting with increased shortness of breath over the last few days. She was diagnosed with covid 1 week ago. She lives with her boyfriend who also has covid 19. Seh reported fevers, shortness of breath and cough as well as a few episodes of diarrhea. She denied chest pain, vomiting, recent travel. In the ED, her oxygen saturation was noted to be 89% and she was placed on 2 liters of oxygen.Her cxr showed?Bilateral regions of scattered disease. She did have a fever abnd tachycardia. She was given a dose of rocephin, decadron and tylenol. She will be admitted for further management of Covid 19. During the hospital stay the patient had increased oxygen demands. CTA demonstrated significant pulmonary emboli with RV strain in addition to that ground-glass opacities consistent with her pneumonitis from the COVID pneumonia. Also, pneumomediastinum. Her oxygen requirements increased. She was started on antithrombotic therapy with Lovenox. Currently awaiting echocardiogram and lower extremity Dopplers. The patient does not qualify for remdesivir. She is completing Decadron. She will receive IL 6 inhibitor for the increased inflammatory markers and the crease oxygen demand. Review of Systems Constitutional: Constitutional: Denies night sweats ENT: Denies change in voice, Denies lip swelling, Denies mouth pain, Reports nasal congestion, Reports nasal discharge and Denies tongue swelling Cardiovascular: Cardiovascular: Denies chest pain and Reports dyspnea Respiratory: Respiratory: Reports cough and Reports dyspnea Gastrointestinal: Gastrointestinal: Denies abdominal pain Musculoskeletal: Musculoskeletal: Denies no additional musculoskeletal complaints Neurologic: Denies Neuro-related abnormal movements Psychiatric: Psychiatric: Denies no additional psychiatric complaints Hematologic/Lymphatic: Hematologic/Lymphatic: Denies easy bleeding and Denies lymphadenopathy Allergic/Immunologic: Allergic/Immunologic: Denies lip swelling and Denies tongue swelling PMFSH Past Medical History Medical History (Updated 06/06/21 @ 13:05 by Doe Concepcion MD) No pertinent past medical history Pneumomediastinum Pulmonary emboli Sepsis Family History Family History Mother Lung cancer Surgical History Surgical History No pertinent past surgical history Social History Social History Household Members: Significant Other Alcohol intake: current Alcohol intake frequency: holidays/special occasions only Patient Tobacco Use Status: Never used Tobacco service: No Current occupational status: employed Meds Allergies Allergy/AdvReac Type Severity Reaction Status Date / Time No Known Allergies Allergy Verified 05/28/21 12:34 Active Medications: Current Medications Acetaminophen (Acetaminophen 325 Mg Tablet) 650 mg PO Q4H PRN PRN Reason: pain and or fever Last Admin: 06/06/21 02:41 Dose: 650 mg Documented by: Ascorbic Acid (Ascorbic Acid 500 Mg Tablet) 1,000 mg PO DAILY [facility] Last Admin: 06/06/21 08:05 Dose: 1,000 mg Documented by: Benzocaine (Throat Lozenge, Medicated Lozenge) 1 lozenge MUCOUS MEM Q2H PRN PRN Reason: Sore Throat Last Admin: 06/06/21 04:52 Dose: 1 lozenge Documented by: Dexamethasone Sodium Phosphate (Dexamethasone Sod Phosphate 4 Mg/Ml Vial) 6 mg IVPUSH DAILY [facility] Stop: 06/07/21 09:01 Last Admin: 06/06/21 08:05 Dose: 6 mg Documented by: Enoxaparin Sodium (Enoxaparin Sodium 100 Mg/Ml Syringe) 85 mg SUBCUT Q12H [facility] Last Admin: 06/06/21 08:04 Dose: 85 mg Documented by: Famotidine (Famotidine/Pf 20 Mg/2 Ml Vial) 20 mg IVPUSH DAILY [facility] Last Admin: 06/06/21 08:05 Dose: 20 mg Documented by: Guaifenesin (Guaifenesin La 600 Mg Tab.Er.12h) 600 mg PO BID [facility] Last Admin: 06/06/21 08:05 Dose: 600 mg Documented by: Hydroxyzine HCl (Hydroxyzine Hcl 50 Mg Tablet) 50 mg PO Q6H PRN PRN Reason: Anxiety Last Admin: 06/06/21 02:39 Dose: 50 mg Documented by: Ampicillin Sodium/Sulbactam (Sodium 3 gm/ Sodium Chloride) 100 mls @ 200 mls/hr IV Q6H [facility] Last Infusion: 06/06/21 09:28 Dose: Infused Documented by: Tocilizumab 400 mg/ Sodium (Chloride) 100 mls @ 100 mls/hr IV ONCE [facility] Ibuprofen (Ibuprofen 400 Mg Tablet) 400 mg PO Q6H PRN PRN Reason: Fever Last Admin: 05/30/21 12:07 Dose: 400 mg Documented by: Pharmacy Consult (Consult Rx Perform Med Rec) 1 each MISCELLANE ONCE PRN PRN Reason: Consult order Sodium Chloride (0.9 % Sodium Chloride Flush 3 Ml Syringe) 3 ml IVFLUSH QSHIFT [facility] Last Admin: 06/06/21 08:05 Dose: 3 ml Documented by: Vitamin D (Cholecalciferol (Vitamin D3) 25 Mcg Tablet) 50 mcg PO DAILY [facility] Last Admin: 06/06/21 08:05 Dose: 50 mcg Documented by: Home Medications Medication Instructions Recorded Confirmed Last Taken Type No Known Home Meds 05/28/21 05/28/21 Unknown History Physical Exam Vital Signs: Vital Signs: Last Vital Signs Temp 98.0 F 06/06/21 11:38 Pulse 71 06/06/21 11:38 Resp 18 06/06/21 11:38 BP 123/72 06/06/21 11:38 Pulse Ox 96 06/06/21 11:38 BMI result Body Mass Index 31.7 Const: General: alert HENMT: General nose exam: Abnormal external nose present and Nasal discharge present Eyes: Pupils: Equal, round and reactive pupils present Neck: Neck: Yes normal visual inspection, Yes full ROM and Yes no lymphadenopathy Chest: Chest palpation & inspection: normal inspection of the chest Resp: Auscultation: diminished lung sounds Cardio: Rate: regular rate Rhythm: regular rhythm Heart sounds: S1 normal heart sound present and S2 normal heart sound present GI: Palpation (GI): Soft to palpation and nontender Auscultation: normal bowel sounds Skin: General skin exam: rashes and/or lesions noted Neuro: Cranial nerves: Yes Equal, round and reactive pupils present Results Laboratory Findings CBC and BMP: 06/06/21 08:48 06/06/21 08:48 ABG, PT/INR, D-dimer: PT/INR, D-dimer PT 14.3 SEC (9.9-13.0) H 06/05/21 18:38 INR 1.3 (0.9-1.1) H 06/05/21 18:38 Abnormal lab findings: Abnormal Labs 05/28/21 05/28/21 05/28/21 14:05 14:05 14:06 WBC 4.0 L Hct Plt Count MPV 9.3 L Immature Gran % (Auto) Neut % (Auto) Lymph % (Auto) Lymph # (Auto) 1.0 L Abs Immat Gran (auto) Absolute Neuts (auto) PT INR Sodium Potassium 3.2 L Carbon Dioxide BUN 7 L Random Glucose 129 H Ferritin 1066 H AST 85 H ALT 71 H Lactate Dehydrogenase 499 H C-Reactive Protein 3.75 H COVID-19 (ROSHAN) 05/28/21 05/29/21 05/29/21 16:33 07:37 07:37 WBC Hct Plt Count MPV Immature Gran % (Auto) Neut % (Auto) Lymph % (Auto) Lymph # (Auto) 1.1 L Abs Immat Gran (auto) Absolute Neuts (auto) PT INR Sodium Potassium Carbon Dioxide BUN Random Glucose 130 H Ferritin 1095 H AST ALT Lactate Dehydrogenase 572 H C-Reactive Protein COVID-19 (ROSHAN) 05/29/21 05/30/21 05/30/21 15:18 08:34 08:34 WBC Hct Plt Count MPV 9.0 L Immature Gran % (Auto) Neut % (Auto) Lymph % (Auto) Lymph # (Auto) Abs Immat Gran (auto) Absolute Neuts (auto) PT INR Sodium Potassium Carbon Dioxide 30 H BUN 18 H Random Glucose 126 H Ferritin AST ALT Lactate Dehydrogenase C-Reactive Protein COVID-19 (ROSHAN) Positive A 05/30/21 06/01/21 06/01/21 08:34 06:56 06:56 WBC Hct Plt Count 427 H D MPV 9.3 L Immature Gran % (Auto) Neut % (Auto) Lymph % (Auto) Lymph # (Auto) Abs Immat Gran (auto) Absolute Neuts (auto) PT INR Sodium Potassium Carbon Dioxide BUN Random Glucose 120 H Ferritin 1929 H 1370 H AST ALT Lactate Dehydrogenase 686 H 830 H C-Reactive Protein COVID-19 (ROSHAN) 06/03/21 06/03/21 06/05/21 07:06 07:06 18:38 WBC 11.7 H Hct Plt Count MPV 9.2 L Immature Gran % (Auto) 1.6 H Neut % (Auto) 77.9 H Lymph % (Auto) 15.4 L Lymph # (Auto) Abs Immat Gran (auto) 0.19 H Absolute Neuts (auto) 9.1 H PT 14.3 H INR 1.3 H Sodium 132 L Potassium Carbon Dioxide BUN 8 L Random Glucose Ferritin 2348 H AST ALT Lactate Dehydrogenase 802 H C-Reactive Protein 7.25 H COVID-19 (ROSHAN) 06/06/21 06/06/21 06/06/21 06:59 08:48 08:48 WBC 11.9 H Hct 35.7 L Plt Count MPV Immature Gran % (Auto) 1.9 H Neut % (Auto) Lymph % (Auto) 19.5 L Lymph # (Auto) Abs Immat Gran (auto) 0.23 H Absolute Neuts (auto) PT INR Sodium Potassium Carbon Dioxide 32 H BUN 7 L Random Glucose Ferritin 1394 H AST ALT Lactate Dehydrogenase 675 H C-Reactive Protein COVID-19 (ROSHAN) 06/06/21 08:48 WBC 12.5 H Hct Plt Count MPV Immature Gran % (Auto) Neut % (Auto) Lymph % (Auto) Lymph # (Auto) Abs Immat Gran (auto) Absolute Neuts (auto) PT INR Sodium Potassium Carbon Dioxide BUN Random Glucose Ferritin AST ALT Lactate Dehydrogenase C-Reactive Protein COVID-19 (ROSHAN) Microbiology: Microbiology 05/28/21 14:06 Blood - Venous Blood Culture - Final No growth after 5 days. 05/28/21 13:44 Blood - Venous Blood Culture - Final No growth after 5 days. Assessment and Plan (1) Acute respiratory failure with hypoxia: Status: Acute (2) Pneumonia due to COVID-19 virus: Status: Acute (3) Pneumomediastinum: Status: Acute (4) Pulmonary emboli: Status: Acute Continue Lovenox for now, will need to transition to Eliquis soon ECHO. LE dopplers today Continue Decadron IL6 inhibitor x 1 nasal cannula to keep pox >90% Monitor pneumomediastinum with serial CXR Procedures Date of Service Date of Service: 06/06/21
[2021-06-06 17:33] LABS: Troponin-I High Sensitivity 5.2 ng/L (<3.5-17.0)
[2021-06-06 17:41] LABS: Lactate Dehydrogenase 566 U/L (122-220)
[2021-06-06] MEDS: Melatonin 3 MG TABLET PO (20:50)
[2021-06-07] VITALS (7 sets, daily range): BP systolic 98–115; BP diastolic 55–71; PULSE 50–97; RESP 18–20; TEMP 36.1–37; O2SAT 93–98
[2021-06-07] MEDS: Ampicillin Sodium/Sulbactam Na 3 GM in 0.9 % Sodium Chloride 100 ML IV ×4 (00:42→18:43)
[2021-06-07] MEDS: Throat Lozenge, Medicated LOZENGE 1 LOZENGE MUCOUS MEM ×2 (03:40→07:38)
[2021-06-07] MEDS: Enoxaparin Sodium 100 MG/ML SYRINGE 85 MG SUBCUT ×2 (06:32→18:42)
[2021-06-07] MEDS: hydrOXYzine HCL 50 MG TABLET PO ×3 (06:38→18:47)
[2021-06-07] MEDS: dexAMETHasone sod phosphate 4 MG/ML VIAL 6 MG IVPUSH (07:37)
[2021-06-07] MEDS: Famotidine/PF 20 MG/2 ML VIAL IVPUSH (07:37)
[2021-06-07] MEDS: 0.9 % Sodium Chloride Flush 3 ML SYRINGE IVFLUSH ×3 (07:37→19:28)
[2021-06-07] MEDS: Cholecalciferol (Vitamin D3) 25 MCG TABLET 50 MCG PO (07:38)
[2021-06-07] MEDS: Ascorbic Acid 500 MG TABLET 1000 MG PO (07:38)
[2021-06-07] MEDS: guaiFENesin LA 600 MG TAB.ER.12H PO ×2 (07:38→19:28)
[2021-06-07 09:25] LABS: Hemoglobin 12.3 g/dl (12.0-16.0); Mean Corpuscular HGB Conc 34.2 g/dl (31.0-35.0); Mean Corpuscular Hemoglobin 28.7 pg (27.0-33.0); Mean Corpuscular Volume 83.9 fL (80.0-98.0); Mean Platelet Volume 9.3 fL (9.4-12.3); Platelet Count 369 X10*3/uL (160-400); Red Blood Count 4.29 X10*6/uL (4.20-5.50); Red Cell Distribution Width 12.4 % (11.0-16.0); White Blood Count 7.7 X10*3/uL (4.8-10.8)
[2021-06-07 09:45] LABS: Anion Gap 11 (12-20); Blood Urea Nitrogen 6 mg/dL (9-16); Calcium 8.8 mg/dL (8.4-10.2); Carbon Dioxide 29 mmol/L (22-29); Chloride 101 mmol/L (96-108); Creatinine Clr Calc Pharmacy 151.2; Estimated Glomerular Filt Rate > 60; Glucose Random 125 mg/dL (60-115); Potassium 3.3 mmol/L (3.3-5.1); Sodium 138 mmol/L (135-145); Troponin-I High Sensitivity 4.8 ng/L (<3.5-17.0)
[2021-06-07 09:48] LABS: Lactate Dehydrogenase 582 U/L (122-220)
--- NOTE | 2021-06-07 09:48 | P.PNPL_ITS ---
Subjective Subjective Date of Service: 06/07/21 Principal diagnosis: covid pneumonia/pulm embolism Interval history: 30 years old female with diagnosis of COVID pneumonia and pulmonary embolism, also has a minimal pneumo mediastinum. Claims to be feeling a little better. No fever or chills, denies any chest pain. Main issue is that she gets short of breath with minimal activity. Objective Data Labs CBC & Chem 7: 06/07/21 09:16 06/07/21 09:16 Labs: Laboratory Results - last 24 hr 06/06/21 06/06/21 06/06/21 08:48 08:48 08:48 WBC RBC Hgb Hct MCV MCH MCHC RDW Plt Count MPV Absolute Nucleated RBC Nucleated RBC % (auto) Sodium 136 Potassium 3.8 Chloride 96 Carbon Dioxide 32 H Anion Gap 12 BUN 7 L Creatinine 0.62 Estim Creat Clear Calc 139.0 Estimated GFR > 60 Random Glucose 106 Calcium 8.9 Ferritin 1394 H Lactate Dehydrogenase 675 H Troponin I High Sens Procalcitonin 0.06 06/06/21 06/06/21 06/07/21 17:02 17:02 09:16 WBC RBC Hgb Hct MCV MCH MCHC RDW Plt Count MPV Absolute Nucleated RBC Nucleated RBC % (auto) Sodium Potassium Chloride Carbon Dioxide Anion Gap BUN Creatinine Estim Creat Clear Calc Estimated GFR Random Glucose Calcium Ferritin Lactate Dehydrogenase 566 H Cancelled Troponin I High Sens 5.2 Procalcitonin 06/07/21 06/07/21 06/07/21 09:16 09:16 09:16 WBC 7.7 RBC 4.29 Hgb 12.3 Hct 36.0 L MCV 83.9 MCH 28.7 MCHC 34.2 RDW 12.4 Plt Count 369 MPV 9.3 L Absolute Nucleated RBC 0.000 Nucleated RBC % (auto) 0.0 Sodium 138 Potassium 3.3 Chloride 101 Carbon Dioxide 29 Anion Gap 11 L BUN 6 L Creatinine 0.57 Estim Creat Clear Calc 151.2 Estimated GFR > 60 Random Glucose 125 H Calcium 8.8 Ferritin Lactate Dehydrogenase Troponin I High Sens 4.8 Procalcitonin Microbiology Microbiology Results: Microbiology 05/28/21 14:06 Blood - Venous Blood Culture - Final No growth after 5 days. 05/28/21 13:44 Blood - Venous Blood Culture - Final No growth after 5 days. Review of Systems Review of Systems Yes all other systems are reviewed and are negative Eyes: Reports no additional eye complaints Reports system reviewed and no additional complaints, except as documented Cardiovascular: Reports no additional cardiovascular complaints Respiratory: Reports as per HPI Gastrointestinal: Reports no additional gastrointestinal complaints Genitourinary: Reports no additional female genitourinary complaints Musculoskeletal: Reports no additional musculoskeletal complaints Skin/Breast: Reports system reviewed and no additional complaints, except as docu Reports system reviewed and no additional complaints, except as documented Physical Exam Vital Signs: Vital Signs: Last Vital Signs Temp 97.0 F 06/07/21 07:18 Pulse 65 06/07/21 07:18 Resp 18 06/07/21 07:18 BP 98/55 L 06/07/21 07:18 Pulse Ox 98 06/07/21 07:18 BMI result Body Mass Index 31.7 Const: General: comfortable (But short of breath during conversation), no acute distress, alert and awake Orientation/consciousness: patient oriented x3 HENMT: Head: Yes normal to inspection General nose exam: No nasal polyps present and No nasal discharge present Face and sinus: Yes sinuses nontender Mouth: oropharynx normal Throat: Yes posterior oropharynx normal Eyes: General: appearance normal, both eyes and all related structures Neck: Neck: Yes normal visual inspection, Yes no lymphadenopathy, Yes trachea midline and Yes no JVD Thyroid: Thyroid normal Chest: Chest palpation & inspection: normal inspection of the chest, normal palpation of entire chest wall and no tenderness Resp: Other: Percussion note is resonant,. She has good breath sounds on both sides. There are a few inspiratory crackles over the basilar areas. No wheezes . Cardio: Palpation: normal PMI Rate: regular rate Rhythm: regular rhythm Heart sounds: no gallops and no murmurs GI: Palpation (GI): Soft to palpation, nontender, No hepatosplenomegaly presen t and no masses Auscultation: normal bowel sounds Back/Spine/Pelvis: Thoracic/Lumbar Spine: thoracic and lumbar spine normal to inspection Skin: General skin exam: no rashes or lesions noted Neuro: General: patient oriented x3 and no focal motor deficits Cranial nerves: Yes CN's II-XII intact bilaterally Extrem: General: Yes normal to inspection, Yes no clubbing, cyanosis or edema and Yes no calf tenderness Psych: Speech and movement: Normal speech and movement present Procedures Date of Service Date of Service: 06/07/21 Assessment and Plan Assessment and plan (1) Pulmonary emboli: Status: Acute Assessment and Plan: COVID related thromboembolism and pulmonary embolism. Continue anticoagulation with Lovenox, Will consider changing to oral anticoagulants 1 patient is stable. (2) Pneumomediastinum: Status: Acute Assessment and Plan: Acute but minimal pneumo mediastinum. Expected to resolve by itself. (3) Pneumonia due to COVID-19 virus: Problem details: Acute bilateral pneumonitis, typical of COVID pneumonia. Treatment plan: Agree with the current treatment with dexamethasone 6 mg IV daily for 10 days. In addition continue all the symptomatic treatment. Status: Acute (4) Acute respiratory failure with hypoxia: Problem details: Acute hypoxemia secondary to ARDS caused by COVID 19 pneumonia. TX continue oxygen by nasal cannula, goal is to keep O2 sat above 90%. Patient also advised to do deep breathing exercises every few hours. Status: Acute Time Spent With Patient Time: Total time spent is greater than 50% in coordination of care (as documente d) at patient's floor/unit and/or counseling patient: Time with patient: 15 - 24 minutes Progress Note: Quality Stroke Does the patient have a stroke diagnosis?: No
--- NOTE | 2021-06-07 09:55 | MHC.CM.PN ---
Female 30 DX Covid+ Met with patient @ request of DEE. The Patient is requesting FMLA paperwork be filled out at [facility]. The patient was informed that the Hospitalist can speak to time here only. PCP will be responsible for documentation of leave paperwork. The patient does not have a PCP. The [facility] PCP list was provided to the patient. She was instructed to call to schedule an appointment @ discharge.
--- NOTE | 2021-06-07 10:30 | CA_ITS ---
Transthoracic Echocardiogram Patient (Last, First, Middle): Cheyenne Rush Lyn Gender: Female Date of : 1990 Age: 30 Procedure Date: 06/07/2021 Procedure Type: Transthoracic E[place]ogram [place] [facility] [place]: 162.56 cm Weight: 83.46 kg BSA: 1.89 m2 Heart Rate: bpm BP: 97 / 64 mmHg Market Research Assistant: DAVID Referring MD: Loida PRICE Neurodiagnostic Technologist: Devan Madrigal MD Symptoms: +PE, right heart strain Study Quality: Good ECG Rhythm: Sinus Conclusions: - 1. Normal biventricular function 2. Normal RV systolic pressure 3. Limited cardiac valvular Doppler 4. No gross pericardial effusion Findings Left Ventricle Normal left ventricular size, thickness, and systolic function. The visually estimated ejection fraction is between 60-65%. Spectral Doppler is indicative of a normal filling pattern. Right Ventricle Normal right ventricular cavity size and systolic function. Atria Interatrial shunt cannot be excluded. Aortic Valve Normal aortic valve structure and function. Mitral Valve Normal mitral valve structure and function. Pulmonic Valve The pulmonic valve was not well visualized. Tricuspid Valve Likely normal tricuspid valve structure and function. There is trace tricuspid valve regurgitation. The right ventricular systolic pressure is normal. The right ventricular systolic pressure is 23 mmHg. Normal right atrial pressure. There is no evidence of pulmonary hypertension. Venous The inferior vena cava is normal in size and collapses greater than 50% with inspiration. Pericardium/Pleural There is no evidence of pericardial effusion. Prior Study Comparison No prior study available for comparison. Measurements 2D Linear Measurements IVSd: 0.92 0.6-0.9/0.6-1.0 cm LVIDd: 4.76 3.9-5.3/4.2-5.9 cm LVIDd Index: 2.52 2.4-3.2/2.2-3.1 cm/m2 LVIDs: 2.59 2.0-3.6 cm LVPWd: 0.98 0.7-1.1 cm LV Mass: 194.92 67-162/88-224 g LV Mass Index: 103.13 43-95/49-115 g/m2 Mitral Valve MV Pk E: 1.08 MV PK A: 0.64 MV Decel Time: 128.00 E/A: 1.70 E'Lateral: 14.50 E'Medial: 10.00 E/E' Med: 10.80 E/E' Lat: 7.40 PHT: 38.00 MVA PHT: 5.79 Decel [place]: 8.42 Diastolic Function MV Pk E: 1.08 MV Pk A: 0.64 E/A: 1.70 E'Medial: 10.00 E/E' Med: 10.80 E' Laterial: 14.50 E/E' Lat: 7.40 Right Ventricle TAPSE (mm): 2.96 TVS' [place]: 10.30 Tricuspid Valve TR Pk [place]: 2.22 TR Pk Grad: 20.00 RA Press: 3.00 RVSP: 23.00 Updated in Other Vendor System with Status of Final Devan Madrigal MD electronically signed on 06/07/2021 12:17:21 PM with status of Final
--- NOTE | 2021-06-07 12:18 | P.PNIM_ITS ---
Subjective Subjective Date of Service: 06/07/21 Review of Systems Follow up denver Goncalves stated that she is very anxious and scared. OOB to chair and bathroom Physical Exam Vital Signs: Vital Signs: Last Vital Signs Temp 98.6 F 06/07/21 11:41 Pulse 86 06/07/21 11:41 Resp 18 06/07/21 11:41 BP 109/71 06/07/21 11:41 Pulse Ox 98 06/07/21 11:41 BMI result Body Mass Index 31.7 Appearing in no acute distress lung sounds are clear to auscultation heart regular rate rhythm, clear S1, S2 positive bowel sounds, abdomen is soft, nontender neuro patient is alert x3, no focal deficits Objective Data Active Medications Acetaminophen (Acetaminophen 325 Mg Tablet) 650 mg PO Q4H PRN PRN Reason: pain and or fever Last Admin: 06/06/21 16:52 Dose: 650 mg Documented by: CONSTANTINO Ascorbic Acid (Ascorbic Acid 500 Mg Tablet) 1,000 mg PO DAILY [facility] Last Admin: 06/07/21 07:38 Dose: 1,000 mg Documented by: ANTOINE Benzocaine (Throat Lozenge, Medicated Lozenge) 1 lozenge MUCOUS MEM Q2H PRN PRN Reason: Sore Throat Last Admin: 06/07/21 07:38 Dose: 1 lozenge Documented by: ANTOINE Enoxaparin Sodium (Enoxaparin Sodium 100 Mg/Ml Syringe) 85 mg SUBCUT Q12H [facility] Last Admin: 06/07/21 06:32 Dose: 85 mg Documented by: JASMNI Famotidine (Famotidine/Pf 20 Mg/2 Ml Vial) 20 mg IVPUSH DAILY [facility] Last Admin: 06/07/21 07:37 Dose: 20 mg Documented by: ANTOINE Guaifenesin (Guaifenesin La 600 Mg Tab.Er.12h) 600 mg PO BID [facility] Last Admin: 06/07/21 07:38 Dose: 600 mg Documented by: ANTOINE Hydroxyzine HCl (Hydroxyzine Hcl 50 Mg Tablet) 50 mg PO Q6H PRN PRN Reason: Anxiety Last Admin: 06/07/21 06:38 Dose: 50 mg Documented by: JASMIN Ampicillin Sodium/Sulbactam (Sodium 3 gm/ Sodium Chloride) 100 mls @ 200 mls/hr IV Q6H [facility] Last Infusion: 06/07/21 07:25 Dose: 0 mls/hr Documented by: ANTOINE Ibuprofen (Ibuprofen 400 Mg Tablet) 400 mg PO Q6H PRN PRN Reason: Fever Last Admin: 05/30/21 12:07 Dose: 400 mg Documented by: JOI Melatonin (Melatonin 3 Mg Tablet) 3 mg PO BEDTIME PRN PRN Reason: Insomnia Last Admin: 06/06/21 20:50 Dose: 3 mg Documented by: RUBIO Pharmacy Consult (Consult Rx Perform Med Rec) 1 each MISCELLANE ONCE PRN PRN Reason: Consult order Sodium Chloride (0.9 % Sodium Chloride Flush 3 Ml Syringe) 3 ml IVFLUSH QSHIFT [facility] Last Admin: 06/07/21 07:37 Dose: 3 ml Documented by: ANTOINE Vitamin D (Cholecalciferol (Vitamin D3) 25 Mcg Tablet) 50 mcg PO DAILY [facility] Last Admin: 06/07/21 07:38 Dose: 50 mcg Documented by: ANTOINE Labs CBC & Chem 7: 06/07/21 09:16 06/07/21 09:16 Labs: Laboratory Results - last 24 hr 06/06/21 06/06/21 06/07/21 17:02 17:02 09:16 MCV MCH MCHC RDW Plt Count MPV Absolute Nucleated RBC Nucleated RBC % (auto) Anion Gap Estim Creat Clear Calc Estimated GFR Random Glucose Calcium Lactate Dehydrogenase 566 H Cancelled Troponin I High Sens 5.2 06/07/21 06/07/21 06/07/21 09:16 09:16 09:16 MCV 83.9 MCH 28.7 MCHC 34.2 RDW 12.4 Plt Count 369 MPV 9.3 L Absolute Nucleated RBC 0.000 Nucleated RBC % (auto) 0.0 Anion Gap 11 L Estim Creat Clear Calc 151.2 Estimated GFR > 60 Random Glucose 125 H Calcium 8.8 Lactate Dehydrogenase 582 H Troponin I High Sens 4.8 Assessment and Plan (1) Pulmonary emboli: Status: Acute (2) Anxiety: Status: Acute (3) Pneumomediastinum: Status: Acute (4) Acute respiratory failure with hypoxia: Status: Acute Assessment and Plan: 30-year-old woman presented to the complaints of increased shortness of fever several days.? unvaccinated. Pulmonary embolus.? Initially found to have elevated D-dimer Chest CTA showed volume of acute pulmonary emboli most notable in the lobar, segmental and subsegmental branches of the lower lobe with right ventricular heart strain Started on therapeutic Lovenox Echocardiogram pending Venous Doppler ultrasound showing left mid tibial vein thrombosis no other DVT showing Pneumomediastinum. Resolved Extending from the level of the diaphragmatic hiatus through the thoracic inlet into the cervical soft tissue Check lactate and troponin to assess for worsening of pneumomediastinum Respiratory status stable Acute hypoxic respiratory failure secondary to COVID-19,? no further hypoxia Currently requiring 5 L of oxygen Decadron ( started 05/29/2021), vitamin-C, vitamin-D and Pepcid Seen by pulmonology with recommendation for tocilizumab for which she received today Sepsis.? Resolved Fever, tachycardia, tachypnea.? Viral COVID Follow blood cultures Anxiety continue prn ativan Hypokalemia. Repleted follow BMP DVT prophylaxis with therapeutic Lovenox Attending Dr. Conley Full code Quality Stroke Does the patient have a stroke diagnosis?: No VTE Prior VTE?: No VTE Risk Level:: Medical - moderate - high VTE Device Contraindication: Treatment Not Indicated VTE Drug Contraindication: N/A - Med Ordered
[2021-06-08] MEDS: Ampicillin Sodium/Sulbactam Na 3 GM in 0.9 % Sodium Chloride 100 ML IV ×4 (00:23→18:48)
[2021-06-08] MEDS: hydrOXYzine HCL 50 MG TABLET PO ×4 (01:00→21:44)
[2021-06-08] MEDS: Melatonin 3 MG TABLET 6 MG PO ×2 (01:00→21:51)
[2021-06-08 04:00] VITALS: BP 119/63; PULSE 52; RESP 18; TEMP 36.9; O2SAT 98
[2021-06-08] MEDS: Enoxaparin Sodium 100 MG/ML SYRINGE 85 MG SUBCUT ×2 (06:22→18:51)
[2021-06-08 07:20] VITALS: BP 104/62; PULSE 68; RESP 18; TEMP 35.5; O2SAT 95
[2021-06-08] MEDS: guaiFENesin LA 600 MG TAB.ER.12H PO ×2 (08:20→21:44)
[2021-06-08] MEDS: Ascorbic Acid 500 MG TABLET 1000 MG PO (08:20)
[2021-06-08] MEDS: Cholecalciferol (Vitamin D3) 25 MCG TABLET 50 MCG PO (08:20)
[2021-06-08] MEDS: Famotidine/PF 20 MG/2 ML VIAL IVPUSH (08:21)
[2021-06-08] MEDS: 0.9 % Sodium Chloride Flush 3 ML SYRINGE IVFLUSH ×3 (08:21→21:44)
[2021-06-08 11:21] VITALS: BP 90/52; PULSE 95; RESP 18; TEMP 36.1; O2SAT 96
--- NOTE | 2021-06-08 11:39 | MHC.CM.PN ---
Per ROUNDS discussion, Patient is not yet medically cleared for dc (IV Ampicillin); Home is the goal for dc and CM will follow for possible need to adjust the dc plan.
[2021-06-08] MEDS: LORazepam 2 MG/ML VIAL 0.5 MG IVPUSH (12:44)
[2021-06-08 15:16] VITALS: BP 113/57; PULSE 76; RESP 18; TEMP 36.3; O2SAT 98
--- NOTE | 2021-06-08 17:05 | HO.PM.IMPN ---
Subjective Subjective Date of Service: 06/08/21 Interval History: Complains of mild postnasal drip and some anxiety but overall doing well Review of Systems Denies chest pain Exertional shortness of breath No nausea vomiting diarrhea Physical Exam Vital Signs: Vital Signs: Last Vital Signs Temp 97.3 F 06/08/21 15:16 Pulse 76 06/08/21 15:16 Resp 18 06/08/21 15:16 BP 113/57 L 06/08/21 15:16 Pulse Ox 98 06/08/21 15:16 BMI result Body Mass Index 31.7 Const: Other: No acute distress resting quietly Resp: Other: Clear to auscultation bilaterally no rales rhonchi wheezes Cardio: Other: No S4; positive S1-S2; no is 3 murmurs of she gallops GI: Other: Soft positive bowel sounds. No rebound or guarding Neuro: Other: Cranial nerves 2-12 grossly intact as tested. Motor 5/5 all extremities. Sensation intact. Cognition appropriate Extrem: Other: No edema bilateral Objective Data Active Medications Acetaminophen (Acetaminophen 325 Mg Tablet) 650 mg PO Q4H PRN PRN Reason: pain and or fever Last Admin: 06/06/21 16:52 Dose: 650 mg Documented by: CONSTANTINO Ascorbic Acid (Ascorbic Acid 500 Mg Tablet) 1,000 mg PO DAILY [facility] Last Admin: 06/08/21 08:20 Dose: 1,000 mg Documented by: DEMETRICE Benzocaine (Throat Lozenge, Medicated Lozenge) 1 lozenge MUCOUS MEM Q2H PRN PRN Reason: Sore Throat Last Admin: 06/07/21 07:38 Dose: 1 lozenge Documented by: ANTOINE Enoxaparin Sodium (Enoxaparin Sodium 100 Mg/Ml Syringe) 85 mg SUBCUT Q12H [facility] Last Admin: 06/08/21 06:22 Dose: 85 mg Documented by: JAVID Famotidine (Famotidine/Pf 20 Mg/2 Ml Vial) 20 mg IVPUSH DAILY [facility] Last Admin: 06/08/21 08:21 Dose: 20 mg Documented by: DEMETRICE Guaifenesin (Guaifenesin La 600 Mg Tab.Er.12h) 600 mg PO BID [facility] Last Admin: 06/08/21 08:20 Dose: 600 mg Documented by: DEMETRICE Hydroxyzine HCl (Hydroxyzine Hcl 50 Mg Tablet) 50 mg PO Q6H PRN PRN Reason: Anxiety Last Admin: 06/08/21 16:02 Dose: 50 mg Documented by: DEMETRICE Ampicillin Sodium/Sulbactam (Sodium 3 gm/ Sodium Chloride) 100 mls @ 200 mls/hr IV Q6H [facility] Last Infusion: 06/08/21 14:10 Dose: 0 mls/hr Documented by: DEMETRICE Ibuprofen (Ibuprofen 400 Mg Tablet) 400 mg PO Q6H PRN PRN Reason: Fever Last Admin: 05/30/21 12:07 Dose: 400 mg Documented by: JOI Lorazepam (Lorazepam 2 Mg/Ml Vial) 0.5 mg IVPUSH Q4H PRN PRN Reason: Anxiety Melatonin (Melatonin 3 Mg Tablet) 6 mg PO BEDTIME PRN PRN Reason: Insomnia Last Admin: 06/08/21 01:00 Dose: 6 mg Documented by: JAVID Pharmacy Consult (Consult Rx Perform Med Rec) 1 each MISCELLANE ONCE PRN PRN Reason: Consult order Sodium Chloride (0.9 % Sodium Chloride Flush 3 Ml Syringe) 3 ml IVFLUSH QSHIFT [facility] Last Admin: 06/08/21 08:21 Dose: 3 ml Documented by: DEMETRICE Vitamin D (Cholecalciferol (Vitamin D3) 25 Mcg Tablet) 50 mcg PO DAILY [facility] Last Admin: 06/08/21 08:20 Dose: 50 mcg Documented by: DEMETRICE Labs CBC & Chem 7: 06/07/21 09:16 06/07/21 09:16 Assessment and Plan (1) Pulmonary emboli: Status: Acute (2) Pneumomediastinum: Status: Acute (3) Pneumonia due to COVID-19 virus: Status: Acute Assessment and Plan: 30-year-old woman presented to the complaints of increased shortness of fever several days. COVID-19 positive with pneumonia. Also noted have pneumomediastinum which has resolved 1.Acute hypoxic respiratory failure secondary to COVID-19 Decadron, Vitamin-C, vitamin-D and Pepcid Supplemental oxygen titrate to sats greater than equal to 92% Zosyn as ordered 2. Acute pulmonary emboli with questionable RV strain by CT Continue Lovenox as ordered; switch to Eliquis to upon discharge. Doing well; echo demonstrates normal RV function and dimensions 3. Anxiety Related to above; p.r.n. Ativan DVT prophylaxis with Lovenox Full code Quality Stroke Does the patient have a stroke diagnosis?: No VTE Prior VTE?: No VTE Risk Level:: Medical - moderate - high VTE Device Contraindication: Treatment Not Indicated VTE Drug Contraindication: N/A - Med Ordered
[2021-06-08 19:47] VITALS: BP 107/63; PULSE 98; RESP 18; TEMP 36.4; O2SAT 96
[2021-06-08 23:32] VITALS: BP 118/57; PULSE 65; RESP 17; TEMP 36.3; O2SAT 99
[2021-06-09] MEDS: Ampicillin Sodium/Sulbactam Na 3 GM in 0.9 % Sodium Chloride 100 ML IV ×4 (00:49→18:30)
[2021-06-09 04:00] VITALS: PULSE 88; RESP 17
[2021-06-09 06:59] LABS: MANUAL DIFF FLAG NO
[2021-06-09 07:10] LABS: Basophils Percent Auto 0.1 % (0-2); Eosinophils Absolute Auto 0.2 X10*3/uL (0.0-0.4); Eosinophils Percent Auto 2.8 % (0-4); Hematocrit 37.1 % (37.0-47.0); Imm Gran Abs Auto 0.07 X10*3/uL (0.00-0.03); Imm Gran Pct Auto 0.9 % (0.0-0.4); Lymphocytes Absolute Auto 2.9 X10*3/uL (1.2-4.9); Lymphocytes Percent Auto 37.6 % (20-40); Mean Corpuscular HGB Conc 32.3 g/dl (31.0-35.0); Mean Corpuscular Hemoglobin 27.7 pg (27.0-33.0); Mean Corpuscular Volume 85.7 fL (80.0-98.0); Mean Platelet Volume 9.3 fL (9.4-12.3); Monocytes Absolute Auto 0.6 X10*3/uL (0.1-1.2); Monocytes Percent Auto 7.9 % (2-11); Neutrophils Absolute Auto 3.8 x10*3/uL (2.0-8.3); Neutrophils Percent Auto 50.7 % (45-73); Platelet Count 433 X10*3/uL (160-400); Red Blood Count 4.33 X10*6/uL (4.20-5.50); Red Cell Distribution Width 12.3 % (11.0-16.0); White Blood Count 7.6 X10*3/uL (4.8-10.8)
[2021-06-09 07:24] LABS: Alanine Aminotransferase 219 U/L (0-31); Albumin Level 3.2 g/dL (3.5-5.0); Alkaline Phosphatase 74 U/L (39-117); Anion Gap 9 (12-20); Aspartate Amino Transferase 102 U/L (5-31); Bilirubin Total 0.6 mg/dL (0.0-1.0); Blood Urea Nitrogen 8 mg/dL (9-16); Calcium 8.9 mg/dL (8.4-10.2); Carbon Dioxide 33 mmol/L (22-29); Chloride 103 mmol/L (96-108); Creatinine Clr Calc Pharmacy 132.6; Estimated Glomerular Filt Rate > 60; Glucose Fasting 99 mg/dL (60-99); Potassium 4.1 mmol/L (3.3-5.1); Sodium 141 mmol/L (135-145); Total Protein 5.7 g/dL (6.5-8.0)
[2021-06-09] MEDS: Enoxaparin Sodium 100 MG/ML SYRINGE 85 MG SUBCUT ×2 (07:46→18:30)
[2021-06-09] MEDS: Famotidine/PF 20 MG/2 ML VIAL IVPUSH (07:47)
[2021-06-09] MEDS: guaiFENesin LA 600 MG TAB.ER.12H PO ×2 (07:47→19:32)
[2021-06-09] MEDS: Cholecalciferol (Vitamin D3) 25 MCG TABLET 50 MCG PO (07:47)
[2021-06-09] MEDS: 0.9 % Sodium Chloride Flush 3 ML SYRINGE IVFLUSH ×3 (07:48→19:32)
[2021-06-09] MEDS: Ascorbic Acid 500 MG TABLET 1000 MG PO (07:48)
[2021-06-09 08:00] VITALS: BP 111/68; PULSE 58; RESP 18; TEMP 36.6; O2SAT 99
--- NOTE | 2021-06-09 09:36 | PM.PNPUL ---
Subjective Subjective Date of Service: 06/09/21 Principal diagnosis: covid pneumonia/pulm embolism Interval history: This 30 years old female is being treated for acute COVID pneumonia, as well as pulmonary embolism. She is empirically being treated with, Zosyn for possibility of bacterial pneumonia. And admission her CT scan showed pneumo mediastinum, but the x-ray on 06/07 showed no air in the mediastinum, indicating that the pneumo mediastinum has resolved. Her symptom is mainly irritation deep down in the throat and difficulty in swallowing. Denies any chest pain fever or chills. Objective Data Labs CBC & Chem 7: 06/09/21 06:29 06/09/21 06:29 Labs: Laboratory Results - last 24 hr 06/09/21 06/09/21 06:29 06:29 WBC 7.6 RBC 4.33 Hgb 12.0 Hct 37.1 MCV 85.7 MCH 27.7 MCHC 32.3 RDW 12.3 Plt Count 433 H MPV 9.3 L Immature Gran % (Auto) 0.9 H Neut % (Auto) 50.7 Lymph % (Auto) 37.6 [place] % (Auto) 7.9 Eos % (Auto) 2.8 Baso % (Auto) 0.1 Lymph # (Auto) 2.9 [place] # (Auto) 0.6 Eos # (Auto) 0.2 Baso # (Auto) 0.0 Abs Immat Gran (auto) 0.07 H Absolute Neuts (auto) 3.8 Absolute Nucleated RBC 0.000 Nucleated RBC % (auto) 0.0 Sodium 141 Potassium 4.1 D Chloride 103 Carbon Dioxide 33 H Anion Gap 9 L BUN 8 L Creatinine 0.65 Estim Creat Clear Calc 132.6 Estimated GFR > 60 Fasting Glucose 99 Calcium 8.9 Total Bilirubin 0.6 AST 102 H ALT 219 H Alkaline Phosphatase 74 D Total Protein 5.7 L Albumin 3.2 L D Microbiology Microbiology Results: Microbiology 05/28/21 14:06 Blood - Venous Blood Culture - Final No growth after 5 days. 05/28/21 13:44 Blood - Venous Blood Culture - Final No growth after 5 days. Review of Systems Review of Systems Yes all other systems are reviewed and are negative Physical Exam Vital Signs: Vital Signs: Last Vital Signs Temp 97.8 F 06/09/21 08:00 Pulse 58 06/09/21 08:00 Resp 18 06/09/21 08:00 BP 111/68 06/09/21 08:00 Pulse Ox 99 06/09/21 08:00 BMI result Body Mass Index 31.7 Const: General: comfortable, no acute distress, alert and awake Orientation/consciousness: patient oriented x3 HENMT: Head: Yes normal to inspection General nose exam: No nasal polyps present and No nasal discharge present Face and sinus: Yes sinuses nontender Mouth: oropharynx normal and other (No exudate her ulcerations are noted in the oropharynx) Teeth and gingiva: other Throat: Yes posterior oropharynx normal Eyes: General: appearance normal, both eyes and all related structures Neck: Neck: Yes normal visual inspection, Yes no lymphadenopathy, Yes trachea midline and Yes no JVD Thyroid: Thyroid normal Chest: Chest palpation & inspection: normal inspection of the chest, normal palpation of entire chest wall and no tenderness Resp: Other: Percussion note resonant, breath sounds equal on both sides. There are scattered inspiratory crackles over the basilar areas. Cardio: Palpation: normal PMI Rate: regular rate Rhythm: regular rhythm Heart sounds: no gallops and no murmurs Peripheral pulses: Peripheral pulses 2+ throughout GI: Palpation (GI): Soft to palpation, nontender, No hepatosplenomegaly present and no masses Auscultation: normal bowel sounds Back/Spine/Pelvis: Thoracic/Lumbar Spine: thoracic and lumbar spine normal to inspection Skin: General skin exam: no rashes or lesions noted Neuro: General: patient oriented x3 and no focal motor deficits Cranial nerves: Yes CN's II-XII intact bilaterally Extrem: General: Yes normal to inspection, Yes no clubbing, cyanosis or edema and Yes no calf tenderness Psych: Speech and movement: Normal speech and movement present Affect: Anxious affect present Procedures Date of Service Date of Service: 06/09/21 Assessment and Plan Assessment and plan (1) Pneumonia due to COVID-19 virus: Problem details: Acute bilateral pneumonitis, typical of COVID pneumonia. Treatment plan: Agree with the current treatment with dexamethasone 6 mg IV daily for 10 days. In addition continue all the symptomatic treatment. Status: Acute (2) Acute respiratory failure with hypoxia: Problem details: Acute hypoxemia secondary to ARDS caused by COVID 19 pneumonia, O2 requirement is decreasing. TX Continue oxygen by nasal cannula and may proceed with the gradual weaning . Goal is to keep O2 sat above 90%. Patient also advised to do deep breathing exercises every few hours. Status: Acute (3) Pneumomediastinum: Status: Acute Assessment and Plan: Resolved. As per chest x-ray on 06/07 there is no residual pneumo mediastinum (4) Pulmonary emboli: Status: Acute Assessment and Plan: Acute bilateral pulmonary embolism most likely as complication of COVID-19 infection. Continue treatment with Lovenox. At time of discharge patient would need oral anti coagulation. Time Spent With Patient Time: Total time spent is greater than 50% in coordination of care (as documented) at patient's floor/unit and/or counseling patient: Time with patient: 15 - 24 minutes Progress Note: Quality Stroke Does the patient have a stroke diagnosis?: No
[2021-06-09] MEDS: dexAMETHasone sod phosphate 4 MG/ML VIAL 6 MG IVPUSH (10:21)
[2021-06-09 11:02] VITALS: BP 98/70; PULSE 101; RESP 18; TEMP 36.5; O2SAT 100
[2021-06-09] MEDS: hydrOXYzine HCL 50 MG TABLET PO (12:37)
[2021-06-09] MEDS: Throat Lozenge, Medicated LOZENGE 1 LOZENGE MUCOUS MEM (12:37)
--- NOTE | 2021-06-09 14:57 | HO.PM.IMPN ---
Subjective Subjective Date of Service: 06/09/21 Interval History: Still significantly short of breath with minimal exertion; slowly improving Review of Systems Denies chest pain Admits to exertional dyspnea Denies nausea vomiting diarrhea Physical Exam Vital Signs: Vital Signs: Last Vital Signs Temp 97.7 F 06/09/21 11:02 Pulse 101 H 06/09/21 11:02 Resp 18 06/09/21 11:02 BP 98/70 06/09/21 11:02 Pulse Ox 100 06/09/21 11:02 BMI result Body Mass Index 31.7 Const: Other: No acute distress resting quietly Resp: Other: Clear to auscultation bilaterally no rales rhonchi wheezes Cardio: Other: No S4; positive S1-S2; no is 3 murmurs of she gallops GI: Other: Soft positive bowel sounds. No rebound or guarding Neuro: Other: Cranial nerves 2-12 grossly intact as tested. Motor 5/5 all extremities. Sensation intact. Cognition appropriate Extrem: Other: No edema bilateral Objective Data Active Medications Acetaminophen (Acetaminophen 325 Mg Tablet) 650 mg PO Q4H PRN PRN Reason: pain and or fever Last Admin: 06/06/21 16:52 Dose: 650 mg Documented by: CONSTANTINO Ascorbic Acid (Ascorbic Acid 500 Mg Tablet) 1,000 mg PO DAILY [facility] Last Admin: 06/09/21 07:48 Dose: 1,000 mg Documented by: KEYA Benzocaine (Throat Lozenge, Medicated Lozenge) 1 lozenge MUCOUS MEM Q2H PRN PRN Reason: Sore Throat Last Admin: 06/09/21 12:37 Dose: 1 lozenge Documented by: KEYA Enoxaparin Sodium (Enoxaparin Sodium 100 Mg/Ml Syringe) 85 mg SUBCUT Q12H [facility] Last Admin: 06/09/21 07:46 Dose: 85 mg Documented by: KEYA Famotidine (Famotidine/Pf 20 Mg/2 Ml Vial) 20 mg IVPUSH DAILY [facility] Last Admin: 06/09/21 07:47 Dose: 20 mg Documented by: KEYA Guaifenesin (Guaifenesin La 600 Mg Tab.Er.12h) 600 mg PO BID [facility] Last Admin: 06/09/21 07:47 Dose: 600 mg Documented by: KEYA Hydroxyzine HCl (Hydroxyzine Hcl 50 Mg Tablet) 50 mg PO Q6H PRN PRN Reason: Anxiety Last Admin: 06/09/21 12:37 Dose: 50 mg Documented by: KEYA Ampicillin Sodium/Sulbactam (Sodium 3 gm/ Sodium Chloride) 100 mls @ 200 mls/hr IV Q6H [facility] Last Infusion: 06/09/21 13:23 Dose: 0 mls/hr Documented by: KEYA Ibuprofen (Ibuprofen 400 Mg Tablet) 400 mg PO Q6H PRN PRN Reason: Fever Last Admin: 05/30/21 12:07 Dose: 400 mg Documented by: JOI Lorazepam (Lorazepam 2 Mg/Ml Vial) 0.5 mg IVPUSH Q4H PRN PRN Reason: Anxiety Melatonin (Melatonin 3 Mg Tablet) 6 mg PO BEDTIME PRN PRN Reason: Insomnia Last Admin: 06/08/21 21:51 Dose: 6 mg Documented by: ANTOIC Pharmacy Consult (Consult Rx Perform Med Rec) 1 each MISCELLANE ONCE PRN PRN Reason: Consult order Sodium Chloride (0.9 % Sodium Chloride Flush 3 Ml Syringe) 3 ml IVFLUSH QSHIFT [facility] Last Admin: 06/09/21 07:48 Dose: 3 ml Documented by: KEYA Vitamin D (Cholecalciferol (Vitamin D3) 25 Mcg Tablet) 50 mcg PO DAILY [facility] Last Admin: 06/09/21 07:47 Dose: 50 mcg Documented by: KEYA Labs CBC & Chem 7: 06/09/21 06:29 06/09/21 06:29 Labs: Laboratory Results - last 24 hr 06/09/21 06/09/21 06:29 06:29 MCV 85.7 MCH 27.7 MCHC 32.3 RDW 12.3 Plt Count 433 H MPV 9.3 L Immature Gran % (Auto) 0.9 H Neut % (Auto) 50.7 Lymph % (Auto) 37.6 [place] % (Auto) 7.9 Eos % (Auto) 2.8 Baso % (Auto) 0.1 Lymph # (Auto) 2.9 [place] # (Auto) 0.6 Eos # (Auto) 0.2 Baso # (Auto) 0.0 Abs Immat Gran (auto) 0.07 H Absolute Neuts (auto) 3.8 Absolute Nucleated RBC 0.000 Nucleated RBC % (auto) 0.0 Anion Gap 9 L Estim Creat Clear Calc 132.6 Estimated GFR > 60 Fasting Glucose 99 Calcium 8.9 Total Bilirubin 0.6 AST 102 H ALT 219 H Alkaline Phosphatase 74 D Total Protein 5.7 L Albumin 3.2 L D Assessment and Plan (1) Pulmonary emboli: Status: Acute (2) Pneumonia due to COVID-19 virus: Status: Acute Assessment and Plan: 30-year-old woman presented to the complaints of increased shortness of fever several days. COVID-19 positive with pneumonia. Also noted have pneumomediastinum which has resolved; still short of breath with minimal exertion 1.Acute hypoxic respiratory failure secondary to COVID-19 Decadron, Vitamin-C, vitamin-D and Pepcid Supplemental oxygen titrate to sats greater than equal to 92% Zosyn as ordered; home O2 of fell in a.m. 2. Acute pulmonary emboli with questionable RV strain by CT Continue Lovenox as ordered; switch to Eliquis to upon discharge. Doing well; echo demonstrates normal RV function and dimensions 3. Anxiety Related to above; p.r.n. Ativan DVT prophylaxis with Lovenox Full code Quality Stroke Does the patient have a stroke diagnosis?: No VTE Prior VTE?: No VTE Risk Level:: Medical - moderate - high VTE Device Contraindication: Treatment Not Indicated VTE Drug Contraindication: N/A - Med Ordered
[2021-06-09 15:26] VITALS: BP 117/70; PULSE 94; RESP 18; TEMP 36.6; O2SAT 92
[2021-06-09 19:50] VITALS: BP 120/72; PULSE 93; RESP 16; TEMP 36.8; O2SAT 92
[2021-06-09 23:59] VITALS: BP 126/67; PULSE 72; RESP 18; TEMP 37; O2SAT 96
[2021-06-10] VITALS (7 sets, daily range): BP systolic 100–123; BP diastolic 56–77; PULSE 58–101; RESP 18–20; TEMP 36.4–37; O2SAT 93–96
[2021-06-10] MEDS: hydrOXYzine HCL 50 MG TABLET PO ×2 (01:02→10:54)
[2021-06-10] MEDS: Melatonin 3 MG TABLET 6 MG PO (01:02)
[2021-06-10] MEDS: Ampicillin Sodium/Sulbactam Na 3 GM in 0.9 % Sodium Chloride 100 ML IV ×3 (01:03→18:14)
[2021-06-10] MEDS: Acetaminophen 325 MG TABLET 650 MG PO ×2 (05:56→10:54)
[2021-06-10] MEDS: Enoxaparin Sodium 100 MG/ML SYRINGE 85 MG SUBCUT (05:56)
[2021-06-10 07:16] LABS: Basophils Percent Auto 0.2 % (0-2); Eosinophils Absolute Auto 0.1 X10*3/uL (0.0-0.4); Eosinophils Percent Auto 1.1 % (0-4); Hematocrit 36.5 % (37.0-47.0); Imm Gran Abs Auto 0.09 X10*3/uL (0.00-0.03); Imm Gran Pct Auto 0.8 % (0.0-0.4); Lymphocytes Absolute Auto 3.7 X10*3/uL (1.2-4.9); Lymphocytes Percent Auto 34.7 % (20-40); MANUAL DIFF FLAG NO; Mean Corpuscular HGB Conc 32.9 g/dl (31.0-35.0); Mean Corpuscular Hemoglobin 28.2 pg (27.0-33.0); Mean Corpuscular Volume 85.7 fL (80.0-98.0); Monocytes Absolute Auto 0.9 X10*3/uL (0.1-1.2); Neutrophils Percent Auto 55.2 % (45-73); Platelet Count 427 X10*3/uL (160-400); Red Blood Count 4.26 X10*6/uL (4.20-5.50); Red Cell Distribution Width 12.4 % (11.0-16.0); White Blood Count 10.8 X10*3/uL (4.8-10.8)
[2021-06-10 07:36] LABS: Alanine Aminotransferase 234 U/L (0-31); Albumin Level 3.1 g/dL (3.5-5.0); Alkaline Phosphatase 72 U/L (39-117); Anion Gap 8 (12-20); Aspartate Amino Transferase 82 U/L (5-31); Bilirubin Total 0.6 mg/dL (0.0-1.0); Blood Urea Nitrogen 10 mg/dL (9-16); Calcium 8.7 mg/dL (8.4-10.2); Carbon Dioxide 31 mmol/L (22-29); Chloride 105 mmol/L (96-108); Creatinine Clr Calc Pharmacy 136.8; Estimated Glomerular Filt Rate > 60; Glucose Fasting 110 mg/dL (60-99); Sodium 140 mmol/L (135-145); Total Protein 5.6 g/dL (6.5-8.0)
[2021-06-10] MEDS: Ascorbic Acid 500 MG TABLET 1000 MG PO (10:54)
[2021-06-10] MEDS: 0.9 % Sodium Chloride Flush 3 ML SYRINGE IVFLUSH ×3 (10:54→19:24)
[2021-06-10] MEDS: Famotidine/PF 20 MG/2 ML VIAL IVPUSH (10:54)
[2021-06-10] MEDS: guaiFENesin LA 600 MG TAB.ER.12H PO ×2 (10:54→19:24)
[2021-06-10] MEDS: Cholecalciferol (Vitamin D3) 25 MCG TABLET 50 MCG PO (10:54)
--- NOTE | 2021-06-10 16:15 | P.PNIM_ITS ---
Subjective Subjective Date of Service: 06/10/21 Interval History: Episodic tachycardia to the 150s. Recorded with ambulation Review of Systems Denies chest pain Admits exertional shortness of breath Denies nausea vomiting diarrhea Physical Exam Vital Signs: Vital Signs: Last Vital Signs Temp 97.7 F 06/10/21 15:32 Pulse 101 H 06/10/21 15:32 Resp 18 06/10/21 15:32 BP 107/63 06/10/21 15:32 Pulse Ox 94 06/10/21 15:32 BMI result Body Mass Index 31.7 Const: Other: No acute distress resting quietly Resp: Other: Clear to auscultation bilaterally no rales rhonchi wheezes Cardio: Other: No S4; positive S1-S2; no is 3 murmurs of she gallops GI: Other: Soft positive bowel sounds. No rebound or guarding Neuro: Other: Cranial nerves 2-12 grossly intact as tested. Motor 5/5 all extremities. Sensation intact. Cognition appropriate Extrem: Other: No edema bilateral Objective Data Active Medications Acetaminophen (Acetaminophen 325 Mg Tablet) 650 mg PO Q4H PRN PRN Reason: pain and or fever Last Admin: 06/10/21 10:54 Dose: 650 mg Documented by: KERA Ascorbic Acid (Ascorbic Acid 500 Mg Tablet) 1,000 mg PO DAILY [facility] Last Admin: 06/10/21 10:54 Dose: 1,000 mg Documented by: KERA Benzocaine (Throat Lozenge, Medicated Lozenge) 1 lozenge MUCOUS MEM Q2H PRN PRN Reason: Sore Throat Last Admin: 06/09/21 12:37 Dose: 1 lozenge Documented by: KEYA Enoxaparin Sodium (Enoxaparin Sodium 100 Mg/Ml Syringe) 85 mg SUBCUT Q12H [facility] Last Admin: 06/10/21 05:56 Dose: 85 mg Documented by: ANTOIC Famotidine (Famotidine/Pf 20 Mg/2 Ml Vial) 20 mg IVPUSH DAILY [facility] Last Admin: 06/10/21 10:54 Dose: 20 mg Documented by: KERA Guaifenesin (Guaifenesin La 600 Mg Tab.Er.12h) 600 mg PO BID [facility] Last Admin: 06/10/21 10:54 Dose: 600 mg Documented by: KERA Hydroxyzine HCl (Hydroxyzine Hcl 50 Mg Tablet) 50 mg PO Q6H PRN PRN Reason: Anxiety Last Admin: 06/10/21 10:54 Dose: 50 mg Documented by: KERA Ampicillin Sodium/Sulbactam (Sodium 3 gm/ Sodium Chloride) 100 mls @ 200 mls/hr IV Q6H [facility] Last Admin: 06/10/21 15:43 Dose: Not Given Documented by: KERA Non-Admin Reason: No Access Ibuprofen (Ibuprofen 400 Mg Tablet) 400 mg PO Q6H PRN PRN Reason: Fever Last Admin: 05/30/21 12:07 Dose: 400 mg Documented by: JOI Lorazepam (Lorazepam 2 Mg/Ml Vial) 0.5 mg IVPUSH Q4H PRN PRN Reason: Anxiety Melatonin (Melatonin 3 Mg Tablet) 6 mg PO BEDTIME PRN PRN Reason: Insomnia Last Admin: 06/10/21 01:02 Dose: 6 mg Documented by: RAZA Pharmacy Consult (Consult Rx Perform Med Rec) 1 each MISCELLANE ONCE PRN PRN Reason: Consult order Sodium Chloride (0.9 % Sodium Chloride Flush 3 Ml Syringe) 3 ml IVFLUSH QSHIFT [facility] Last Admin: 06/10/21 10:54 Dose: 3 ml Documented by: KEAR Vitamin D (Cholecalciferol (Vitamin D3) 25 Mcg Tablet) 50 mcg PO DAILY [facility] Last Admin: 06/10/21 10:54 Dose: 50 mcg Documented by: KERA Labs CBC & Chem 7: 06/10/21 07:04 06/10/21 07:04 Labs: Laboratory Results - last 24 hr 06/10/21 06/10/21 07:04 07:04 MCV 85.7 MCH 28.2 MCHC 32.9 RDW 12.4 Plt Count 427 H MPV 9.0 L Immature Gran % (Auto) 0.8 H Neut % (Auto) 55.2 Lymph % (Auto) 34.7 Benson % (Auto) 8.0 Eos % (Auto) 1.1 Baso % (Auto) 0.2 Lymph # (Auto) 3.7 [place] # (Auto) 0.9 Eos # (Auto) 0.1 Baso # (Auto) 0.0 Abs Immat Gran (auto) 0.09 H Absolute Neuts (auto) 6.0 Absolute Nucleated RBC 0.000 Nucleated RBC % (auto) 0.0 Anion Gap 8 L Estim Creat Clear Calc 136.8 Estimated GFR > 60 Fasting Glucose 110 H Calcium 8.7 Total Bilirubin 0.6 AST 82 H ALT 234 H Alkaline Phosphatase 72 Total Protein 5.6 L Albumin 3.1 L Assessment and Plan (1) Pulmonary emboli: Status: Acute (2) Pneumonia due to COVID-19 virus: Status: Acute Assessment and Plan: 30-year-old woman presented to the complaints of increased shortness of fever several days. COVID-19 positive with pneumonia. Also noted have pneumomediastinum which has resolved; still short of breath with minimal exertion 1.Acute hypoxic respiratory failure secondary to COVID-19 Decadron, Vitamin-C, vitamin-D and Pepcid Supplemental oxygen titrate to sats greater than equal to 92% Zosyn as ordered; home O2 of fell in a.m. 2. Acute pulmonary emboli with questionable RV strain by CT Continue Lovenox as ordered; switch to Eliquis Doing well; echo demonstrates normal RV function and dimensions 3. Anxiety Related to above; p.r.n. Ativan DVT prophylaxis with Lovenox Full code Quality Stroke Does the patient have a stroke diagnosis?: No VTE Prior VTE?: No VTE Risk Level:: Medical - moderate - high VTE Device Contraindication: Treatment Not Indicated VTE Drug Contraindication: N/A - Med Ordered
[2021-06-10] MEDS: Apixaban 5 MG TABLET 10 MG PO (19:24)
[2021-06-10] MEDS: Docusate Sodium 100 MG CAPSULE PO (22:15)
[2021-06-11] MEDS: Ampicillin Sodium/Sulbactam Na 3 GM in 0.9 % Sodium Chloride 100 ML IV ×3 (00:14→13:07)
[2021-06-11] MEDS: hydrOXYzine HCL 50 MG TABLET PO (00:14)
[2021-06-11 03:17] VITALS: BP 116/72; PULSE 54; RESP 18; TEMP 36.7; O2SAT 92
[2021-06-11 06:52] LABS: MANUAL DIFF FLAG NO
[2021-06-11 07:00] LABS: Basophils Percent Auto 0.5 % (0-2); Eosinophils Absolute Auto 0.2 X10*3/uL (0.0-0.4); Eosinophils Percent Auto 2.7 % (0-4); Hematocrit 36.1 % (37.0-47.0); Hemoglobin 12.3 g/dl (12.0-16.0); Imm Gran Abs Auto 0.04 X10*3/uL (0.00-0.03); Imm Gran Pct Auto 0.6 % (0.0-0.4); Lymphocytes Percent Auto 46.3 % (20-40); Mean Corpuscular HGB Conc 34.1 g/dl (31.0-35.0); Mean Corpuscular Hemoglobin 29.2 pg (27.0-33.0); Mean Corpuscular Volume 85.7 fL (80.0-98.0); Mean Platelet Volume 9.2 fL (9.4-12.3); Monocytes Absolute Auto 0.6 X10*3/uL (0.1-1.2); Monocytes Percent Auto 8.7 % (2-11); Neutrophils Absolute Auto 2.7 x10*3/uL (2.0-8.3); Neutrophils Percent Auto 41.2 % (45-73); Platelet Count 407 X10*3/uL (160-400); Red Blood Count 4.21 X10*6/uL (4.20-5.50); Red Cell Distribution Width 12.6 % (11.0-16.0); White Blood Count 6.6 X10*3/uL (4.8-10.8)
[2021-06-11 07:33] LABS: Alanine Aminotransferase 343 U/L (0-31); Albumin Level 3.1 g/dL (3.5-5.0); Alkaline Phosphatase 73 U/L (39-117); Anion Gap 10 (12-20); Aspartate Amino Transferase 116 U/L (5-31); Bilirubin Total 0.6 mg/dL (0.0-1.0); Blood Urea Nitrogen 14 mg/dL (9-16); Calcium 8.4 mg/dL (8.4-10.2); Carbon Dioxide 27 mmol/L (22-29); Chloride 108 mmol/L (96-108); Creatinine Clr Calc Pharmacy 132.6; Estimated Glomerular Filt Rate > 60; Glucose Fasting 98 mg/dL (60-99); Potassium 3.9 mmol/L (3.3-5.1); Sodium 141 mmol/L (135-145); Total Protein 5.4 g/dL (6.5-8.0)
[2021-06-11 07:52] VITALS: BP 121/75; PULSE 73; RESP 18; TEMP 36.8; O2SAT 95
[2021-06-11] MEDS: 0.9 % Sodium Chloride Flush 3 ML SYRINGE IVFLUSH (10:11)
[2021-06-11] MEDS: Famotidine/PF 20 MG/2 ML VIAL IVPUSH (10:11)
[2021-06-11] MEDS: Apixaban 5 MG TABLET 10 MG PO (10:12)
[2021-06-11] MEDS: Cholecalciferol (Vitamin D3) 25 MCG TABLET 50 MCG PO (10:12)
[2021-06-11] MEDS: guaiFENesin LA 600 MG TAB.ER.12H PO (10:12)
[2021-06-11] MEDS: Ascorbic Acid 500 MG TABLET 1000 MG PO (10:12)
[2021-06-11] MEDS: Docusate Sodium 100 MG CAPSULE PO (10:19)
[2021-06-11 11:55] VITALS: BP 102/58; PULSE 102; RESP 16; TEMP 36.9; O2SAT 94
--- NOTE | 2021-06-11 12:06 | P.DS_ITS ---
DS: Providers Provider Date of Service: 06/11/21 Date of admission: 05/28/21 15:17 Date of discharge: 06/11/21 Primary care physician: None Physician Consults: 05/28/21 15:17 Consult to Infectious Diseases Routine Consulting Provider: Mariama Jackson Reason for consultation: covid 19 Has provider been notified: No 06/05/21 18:27 Consult to Critical Care Routine Consulting Provider: Des Islas Reason for consultation: covid + pneumomedistinum Has provider been notified: No 06/05/21 19:37 Consult to Pulmonology Routine Consulting Provider: Des Islas Reason for consultation: PE, covid, pneumomediastinum Has provider been notified: No 06/06/21 08:02 Consult to Pulmonology Routine Consulting Provider: Doe Concepcion Reason for consultation: new PE, pneumomediastinum, covid Has provider been notified: No DS: Diagnosis Discharge Diagnosis (1) Pulmonary emboli: Status: Acute (2) Pneumonia due to COVID-19 virus: Status: Acute DS: Summary Hospital Course Hospital Course: 30 year old unvaccinated women presenting with increased shortness of breath over the last few days. She was diagnosed with covid 1 week ago. She lives with her boyfriend who also has covid 19. Seh reported fevers, shortness of breath and cough as well as a few episodes of diarrhea. She denied chest pain, vomiting, recent travel. In the ED, her oxygen saturation was noted to be 89% and she was placed on 2 liters of oxygen.Her cxr showed?Bilateral regions of scattered disease. She did have a fever abnd tachycardia. She was given a dose of rocephin, decadron and tylenol. She will be admitted for further management of Covid 19. hospital course patient was admitted to the COVID floor, given IV Decadron and supplemental O2. She continued to have an O2 requirement with the next several days despite therapies. on 06/05/2021, patient developed acute shortness of breath. Chest CT demonstrated of moderate volume acute pulmonary emboli in the right lower lobe; diffuse ground-glass opacities consistent with COVID pneumonia; moderate volume pneumomediastinum her lab of the diaphragm hiatus through the thoracic inlet. seen by pulmonology who recommended conservative therapies. She was started on Zosyn for presumed pneumonia. Over the course of next several days her pneumomediastinum resolved and she continued to improve from an oxygen standpoint. At this point in time she is stable for home O2 and can be discharged home to complete a course of Augmentin and follow up with PCP Time Spent with Patient Time attestation: Total time spent providing and/or coordinating discharge services: Discharge coordination time: Greater than 30 minutes Quality: Stroke Does the patient have a stroke diagnosis?: No Physical Exam Vital Signs: Vital Signs: Last Vital Signs Temp 98.5 F 06/11/21 11:55 Pulse 102 H 06/11/21 11:55 Resp 16 06/11/21 11:55 BP 102/58 L 06/11/21 11:55 Pulse Ox 94 06/11/21 11:55 BMI result Body Mass Index 31.7 Const: Other: No acute distress resting quietly Resp: Other: Clear to auscultation bilaterally no rales rhonchi wheezes Cardio: Other: No S4; positive S1-S2; no is 3 murmurs of she gallops GI: Other: Soft positive bowel sounds. No rebound or guarding Neuro: Other: Cranial nerves 2-12 grossly intact as tested. Motor 5/5 all extremities. Sensation intact. Cognition appropriate Extrem: Other: No edema bilateral DS: Data Data Completed and Pending Labs on day of discharge: Laboratory Results - last 24 hr 06/11/21 06/11/21 06:28 06:29 WBC 6.6 RBC 4.21 Hgb 12.3 Hct 36.1 L MCV 85.7 MCH 29.2 MCHC 34.1 RDW 12.6 Plt Count 407 H MPV 9.2 L Immature Gran % (Auto) 0.6 H Neut % (Auto) 41.2 L Lymph % (Auto) 46.3 H [place] % (Auto) 8.7 Eos % (Auto) 2.7 Baso % (Auto) 0.5 Lymph # (Auto) 3.0 [place] # (Auto) 0.6 Eos # (Auto) 0.2 Baso # (Auto) 0.0 Abs Immat Gran (auto) 0.04 H Absolute Neuts (auto) 2.7 Absolute Nucleated RBC 0.000 Nucleated RBC % (auto) 0.0 Sodium 141 Potassium 3.9 Chloride 108 Carbon Dioxide 27 Anion Gap 10 L BUN 14 Creatinine 0.65 Estim Creat Clear Calc 132.6 Estimated GFR > 60 Fasting Glucose 98 Calcium 8.4 Total Bilirubin 0.6 AST 116 H ALT 343 H Alkaline Phosphatase 73 Total Protein 5.4 L Albumin 3.1 L Discharge Plan Discharge Patient Disposition: Home, Self-Care Discharge Diagnosis: Covid-19 Pneumonia Referrals: Physician,None [Primary Care Provider] - 1 Week Discharge Medications: New hydroxyzine HCl 50 mg Tablet 50 mg PO Q6H PRN (Reason: Anxiety) Qty: 30 RF: 0 Eliquis 5 mg Tablet 10 mg PO BID Qty: 60 RF: 2 amoxicillin-pot clavulanate [Augmentin] 875-125 mg tablet 1 tab PO BID Qty: 14 RF: 0 Discharge Orders: Discharge Order (Routine); Ordered 06/11/21 Ordered By: Pasha Barger Diet: advance to usual diet Activity on Discharge: As tolerated Stand Alone Forms: Patient Portal Discharge page Care Plan Goals: continue supplemental O2 as ordered. Complete course of Augmentin as prescribed Health Concerns: continue to use supplemental O2 until your symptom free Plan of Treatment: follow-up with PCP next available appointment Assessment: as per DC summary
--- NOTE | 2021-06-11 13:09 | MHC.CM.PN ---
PT TO DC HOME TODAY WITH NO SERVICES S/O TO TRANSPORT
== END 2021-06-11 14:30 | disposition home or self-care (01) | DRG 720 ==
LOC: HO.ED 14:54 → HO.EDOVER 15:23 → HO.ICU 05-29 19:16 → HO.IMC 05-30 07:00
PROVIDERS: Physician Assistant; Physician Assistant Medical; Admitting Provider Nurse Practitioner Acute Care; Emergency Provider Emergency Medicine; Visit Provider Hospitalist
DX: A41.89 Other specified sepsis (principal); J80 Acute respiratory distress syndrome; J12.82 Pneumonia due to coronavirus disease 2019; U07.1 COVID-19; I26.94 Multiple subsegmental thrombotic pulmonary emboli without acute cor pulmonale; I82.442 Acute embolism and thrombosis of left tibial vein; J98.2 Interstitial emphysema; F41.9 Anxiety disorder, unspecified; E87.6 Hypokalemia; Z79.01 Long term (current) use of anticoagulants; Z79.899 Other long term (current) drug therapy
CPT/HCPCS: 36415; 71045; 71275; 80048; 80053; 80076; 82728; 83605; 83615; 83735; 83880; 84145; 84484; 85025; 85027; 85379; 85610; 85730; 86140; 87040; 87635; 93005; 93308; 93970; 96365; 96375; 99285; J0295; J0696; J1100; J1650; J1885; J2060; J3262; Q9967

== ENCOUNTER 2021-08-11 15:11 | Outpatient (REF) | payer OTHER, SELFPAY ==
[2021-08-11 15:27] LABS: MANUAL DIFF FLAG NO
[2021-08-11 15:44] LABS: Basophils Percent Auto 0.5 % (0-2); Eosinophils Absolute Auto 0.1 X10*3/uL (0.0-0.4); Eosinophils Percent Auto 1.6 % (0-4); Hematocrit 39.7 % (37.0-47.0); Hemoglobin 13.1 g/dl (12.0-16.0); Imm Gran Abs Auto 0.02 X10*3/uL (0.00-0.03); Imm Gran Pct Auto 0.2 % (0.0-0.4); Lymphocytes Absolute Auto 2.5 X10*3/uL (1.2-4.9); Lymphocytes Percent Auto 30.2 % (20-40); Mean Corpuscular Hemoglobin 28.4 pg (27.0-33.0); Mean Corpuscular Volume 85.9 fL (80.0-98.0); Mean Platelet Volume 8.8 fL (9.4-12.3); Monocytes Absolute Auto 0.8 X10*3/uL (0.1-1.2); Monocytes Percent Auto 9.7 % (2-11); Neutrophils Absolute Auto 4.7 x10*3/uL (2.0-8.3); Neutrophils Percent Auto 57.8 % (45-73); Platelet Count 350 X10*3/uL (160-400); Red Blood Count 4.62 X10*6/uL (4.20-5.50); White Blood Count 8.2 X10*3/uL (4.8-10.8)
[2021-08-11 16:07] LABS: Alanine Aminotransferase 48 U/L (0-31); Albumin Level 4.8 g/dL (3.5-5.0); Alkaline Phosphatase 64 U/L (39-117); Anion Gap 14 (12-20); Aspartate Amino Transferase 35 U/L (5-31); Bilirubin Total 0.9 mg/dL (0.0-1.0); Blood Urea Nitrogen 14 mg/dL (9-16); Calcium 9.7 mg/dL (8.4-10.2); Carbon Dioxide 22 mmol/L (22-29); Chloride 106 mmol/L (96-108); Cholesterol 156 mg/dL; Estimated Average Glucose 103 mg/dL; Estimated Glomerular Filt Rate > 60; Glucose Fasting 95 mg/dL (60-99); HDL Cholesterol 48 mg/dL; Hemoglobin A1c % 5.2 %; LDL Cholesterol Calculated 87 mg/dl; Potassium 4.3 mmol/L (3.3-5.1); Sodium 138 mmol/L (135-145); Total Protein 7.7 g/dL (6.5-8.0); Triglycerides 105 mg/dL
[2021-08-11 16:28] LABS: TSH reflex Free T4 1.21 uIU/mL (0.32-4.0)
[2021-08-11 16:39] LABS: Folate 11.7 ng/mL (> or = 4.0); Vitamin B12 307 pg/mL (200-900)
[2021-08-16 13:52] LABS: Vitamin D 25-OH, D2 <4 ng/mL; Vitamin D 25-OH, D3 16 ng/mL; Vitamin D 25-OH, Total 16 ng/mL (30-100)
== END 2021-08-11 15:12 | disposition home or self-care (01) ==
LOC: HO.LAB 15:11
PROVIDERS: Visit Provider Nurse Practitioner Acute Care
DX: Z00.00 Encounter for general adult medical examination without abnormal findings (principal)
CPT/HCPCS: 36415; 80053; 80061; 82306; 82607; 82746; 83036; 84443; 85025

== ENCOUNTER 2021-08-16 08:07 | Outpatient (REF) | payer OTHER, SELFPAY ==
--- NOTE | ~2021-08-16 | CT_ITS ---
EXAMINATION: CT ANGIOGRAM OF THE CHEST WITH AND WITHOUT CONTRAST (CT PULMONARY ANGIOGRAM FOR PE) CLINICAL INFORMATION: Reason for Exam I26.99 - Other pulmonary embolism without acute cor pulmo... COMPARISON: Previous chest x-ray most recent June 2021 and chest CTA June 2021 TECHNIQUE: Prior to contrast administration, noncontrast localization images were obtained. Subsequently, multidetector volumetric imaging was performed from the thoracic inlet to below the diaphragms following the administration of 65 mL Omnipaque 350 intravenous contrast. No contrast reaction reported Sagittal, coronal, and MIP oblique sagittal reformatted images were obtained on the CT workstation, uploaded to PACS, and reviewed. This CT examination was performed using dose optimization techniques as appropriate, variously including the following: *Automated exposure control *Adjustment of mA and/or kV according to patient size (this includes techniques or standardized protocols for targeted exams where dose is matched to indication/reason for exam; i.e. extremities or head) *Use of iterative reconstruction technique Total exam dose-length product 151 mGy-cm FINDINGS: QUALITY OF STUDY/CONTRAST BOLUS: Satisfactory. PULMONARY ARTERIES: No central or segmental pulmonary emboli. Previous identified right middle and bilateral lower lobe pulmonary emboli are no longer seen. Pulmonary arteries are normal in size, main pulmonary artery measuring 2.2 cm. THORACIC AORTA: No aneurysm or dissection. LUNG: There is scarring or subsegmental atelectasis in the right lower lobe. There is scattered areas of increased groundglass attenuation seen throughout the lungs. This appears improved from June 2021 exam. The lungs are otherwise clear. PLEURA: No pleural effusion or pneumothorax. MEDIASTINUM: Upper normal heart size. No pericardial effusion. There are small bilateral hilar and mediastinal lymph nodes. No enlarged lymph nodes are seen. No evidence of septal bowing or right heart strain. CHEST WALL/AXILLA: No axillary or internal mammary lymphadenopathy. OSSEOUS STRUCTURES: No acute or suspicious osseous abnormality. UPPER ABDOMEN: Unremarkable. No reflux of contrast into the hepatic veins to suggest elevated right heart pressures. CT/CT angio chest PE protocol IMPRESSION: Resolved pulmonary emboli from June 2021 exam. Subsegmental atelectasis in the right lower lobe. Scattered faint groundglass attenuation areas throughout the lungs improved from June 2021 exam. VTE: negative
[2021-08-16] MEDS: iohexoL 350 MG/ML 100 ML INFUS..BTL IV (09:24)
== END 2021-08-16 08:08 | disposition home or self-care (01) ==
LOC: HO.CT 08:07
PROVIDERS: Visit Provider Nurse Practitioner Acute Care
DX: I26.99 Other pulmonary embolism without acute cor pulmonale (principal)
CPT/HCPCS: 71275; Q9967

== ENCOUNTER 2024-11-27 09:56 | Emergency (ER) | payer OTHER, SELFPAY ==
[2024-11-27] VITALS (8 sets, daily range): BP systolic 104–146; BP diastolic 69–91; PULSE 96–110; RESP 15–20; TEMP 37.2–37.9; O2SAT 98–100; BMI 34.3
--- NOTE | ~2024-11-27 | US_ITS ---
EXAMINATION: US PELVIS CLINICAL INFORMATION: Rule out left adnexal abscess. Abnormal CT. COMPARISON: None available. TECHNIQUE: Ultrasound of the pelvis is performed using both transabdominal and transvaginal transducers along with Doppler. Transvaginal imaging is performed due to inadequate visualization transabdominally. FINDINGS: Uterus: The uterus is anteverted and measures 7.0 x 3.4 x 3.7 cm. The cervix has a normal appearance. The double wall endometrial thickness is 8 mm. It is uniform. The uterus is smooth in contour and has normal myometrial echogenicity. No visible fibroid. Adnexa: Both ovaries are visualized. There is normal color flow to the adnexa. There is no ovarian torsion. There is trace free pelvic anechoic fluid. There are no adnexal masses or abscesses. Right ovary measures 3.1 x 2.4 x 1.7 cm. Volume = 6.6 mL. Normal sonographic appearance. Left ovary measures 3.4 x 1.8 x 2.4 cm. Volume = 7.7 mL. There is a 1.7 x 1.4 x 1.7 cm follicular cyst with a tiny daughter cyst present. US/US pelvic and transvaginal IMPRESSION: 1. Normal uterus and endometrium. 2. There is a left follicular ovarian cyst measuring 1.7 cm. There is no evidence of abscess. 3. Review of the CT examination demonstrates noncomplicated sigmoid diverticulitis. Electronically signed by: Zander Melgar MD 11/27/2024 03:59 PM EDT
--- NOTE | ~2024-11-27 | CT_ITS ---
EXAMINATION: CT ABDOMEN AND PELVIS WITHOUT CONTRAST CLINICAL INFORMATION: Lower abdominal pain. DLP: 765 mGY*cm COMPARISON: None available. TECHNIQUE: Multidetector volumetric imaging was performed from the superior aspect of the liver through the pubic symphysis. Sagittal and coronal reformatted images were obtained on the technologist's workstation. This CT examination was performed using dose optimization techniques as appropriate, variously including the following: *Automated exposure control *Adjustment of mA and/or kV according to patient size (this includes techniques or standardized protocols for targeted exams where dose is matched to indication/reason for exam; i.e. extremities or head) *Use of iterative reconstruction technique FINDINGS: LUNG BASES: The visualized lung bases are unremarkable. LIVER, GALLBLADDER, AND BILIARY TREE: The liver is normal in size, shape, and attenuation. No focal hepatic lesion or biliary ductal dilatation is present. Faint curved calcification in the dependent portion of the gallbladder probably represents a partially calcified gallstone. PANCREAS: Unremarkable. SPLEEN: Unremarkable. ADRENAL GLANDS: Unremarkable. KIDNEYS AND URETERS: The kidneys are normal in size, shape, and attenuation. No hydronephrosis, hydroureter, or calculi seen. No perinephric stranding. BLADDER: Unremarkable. GASTROINTESTINAL TRACT: There is a small sliding hiatal hernia involving the gastric cardia. There is a prominent pseudodiverticula along the lateral wall of the mid sigmoid colon with adjacent moderate fat stranding of the mesentery. There is a small amount free fluid in the pelvis. There is no conclusive evidence of a localized perforation and there is no free air. The appendix is unremarkable. ABDOMINAL WALL: No significant hernia is appreciated. LYMPH NODES: Normal. VASCULAR: Unremarkable. PELVIC VISCERA: 18 mm cystic fracture and left adnexa is present in the an ovarian follicle rather than early abscess formation sensitive is inferior to most of inflammatory changes in the mesentery.. Uterus and right ovary are unremarkable. OSSEOUS STRUCTURES: Unremarkable. CT/CT abdomen pelvis wo IV con IMPRESSION: Suspected uncomplicated acute diverticulitis of the mid sigmoid colon. There are inflammatory changes surrounding a pseudodiverticula along the lateral wall of the mid sigmoid colon. There is an 18 mm loculated fluid collection in the left adnexa presumed to be a mature ovarian follicle rather than early abscess formation. This loculated fluid is situated caudal to the area of inflammation in the sigmoid mesentery. Cholelithiasis. Small sliding hiatal hernia involving gastric cardia. Fleischner guidelines were followed. Electronically signed by: Roby Ivy MD 11/27/2024 01:05 PM EDT RP
--- NOTE | 2024-11-27 11:20 | ED.ABDPAIN ---
HPI - Abdominal Pain General Chief Complaint: Abdominal Pain Stated Complaint: pain in pelvic Time Seen by Provider: 11/27/24 10:44 Source: patient Mode of arrival: ambulatory Limitations: no limitations History of Present Illness ED Provider: DR. Ingram HPI narrative: 34-year-old female was sent from urgent care for further evaluation of lower abdominal pain started 2 days ago, describes the pain as suprapubic pain with no radiation, moderate in severity 4/10, no nausea, no vomiting, no diarrhea, no dysuria, no frequency urination, no hematuria, no vaginal discharge, no vaginal bleed, patient is sexually not active for few months, no history or risk for STDs as per patient. No history of intra-abdominal surgery. Patient was seen at urgent Care before coming to the ED urine analysis at the urgent care was unremarkable and patient was sent here for further evaluation. Related Data Home Medications ?Medication ?Instructions ?Recorded ?Confirmed multivitamin 1 tab PO DAILY 04/13/22 09/29/22 Previous Rx's ?Medication ?Instructions ?Recorded cholecalciferol (vitamin D3) 50 50 mcg PO DAILY #30 caps 09/05/21 mcg (2,000 unit) capsule albuterol sulfate 90 mcg/actuation 2 puff inhalation Q4-6H PRN 04/13/22 aerosol inhaler (ProAir HFA) shortness of breath or wheezing #8.5 grams cetirizine 10 mg tablet (Zyrtec) 10 mg PO DAILY PRN allergy 09/29/22 symptoms #30 tabs Allergies Allergy/AdvReac Type Severity Reaction Status Date / Time No Known Allergies Allergy Verified 11/27/24 10:12 Review of Systems Review of Systems All other systems are reviewed and are negative Constitutional: Reports as per HPI and Reports no additional constitutional complaints Eyes: Reports as per HPI and Reports no additional eye complaints Reports system reviewed and no additional complaints, except as documented Cardiovascular: Reports as per HPI and Reports no additional cardiovascular complaints Respiratory: Reports as per HPI and Reports no additional respiratory complaints Gastrointestinal: Reports as per HPI and Reports no additional gastrointestinal complaints Genitourinary: Reports no additional female genitourinary complaints Musculoskeletal: Reports no additional musculoskeletal complaints Skin/Breast: Reports system reviewed and no additional complaints, except as docu Psychiatric: Reports no additional psychiatric complaints Endocrine: Reports no additional endocrine complaints Hematologic/Lymphatic: Reports no additional hematologic/lymphatic complaints Allergic/Immunologic: Reports no additional allergic/immunologic complaints Reports system reviewed and no additional complaints, except as documented and Reports Abnormal speech present [facility] Past Medical History Medical History Wheezing Hospital discharge follow-up Encounter to establish care Physical exam Pulmonary emboli Pneumomediastinum Sepsis No pertinent past medical history Pneumonia due to COVID-19 virus Surgical History No pertinent past surgical history Family History Family History Mother Lung cancer Father No problems noted. Social History Social History Household Members: Significant Other Housing: Apartment Alcohol intake: current Alcohol intake frequency: holidays/special occasions only Patient Tobacco Use Status: Never used Tobacco Smoked in Last 30 Days: No e-Cigarette/Vaping Use: Never Used Second Hand Smoke Exposure: No Use of substances other than those prescribed or required for medical reasons: No Advance Directives: No Advance Directives Information Provided: Yes Do you have a plan to hurt others: No Plan Patient : No service: No Current occupational status: employed Cognitive needs: No Hearing needs: No Vision needs: Yes Physical Exam ED Vital Signs: Vital Signs - 24 hr 11/27/24 10:10 11/27/24 11:49 11/27/24 13:40 Temperature 98.9 F 98.9 F 100.2 F Pulse Rate 98 98 96 Respiratory Rate 18 18 18 Blood Pressure 146/91 H 146/91 H 136/83 Pulse Oximetry 98 98 Oxygen Delivery Method Room Air Room Air Room Air 11/27/24 14:00 11/27/24 15:46 Temperature 99.8 F 99.8 F Pulse Rate 100 110 H Respiratory Rate 15 19 Blood Pressure 126/77 126/77 Pulse Oximetry 99 100 Oxygen Delivery Method Room Air Room Air BMI result Body Mass Index 34.3 Vital signs have been reviewed and appear to be correct. Blood pressure elevated. Heart rate normal. Respiratory rate normal. Temperature normal. Oxygen saturation normal. Appearance: Alert. Oriented X3. No acute distress. Head: Normal external exam. Normocephalic. Atraumatic. No Thompson signs noted. No raccoon eyes noted Eyes: PERRLA. EOMI. Conjunctiva and sclera normal. Eyelids normal. ENT: TM's Normal. Pharynx normal. Uvula midline. Moist mucous membranes. No trismus noted. No drooling noted. No muffled voice noted. Neck: Normal inspection. Neck supple. FROM. No adenopathy. Thyroid Normal. No meningeal signs. No neck mass noted. CVS: Normal heart rate and rhythm. Heart sound normal. No murmurs noted. Pulses normal throughout. Respiratory: No respiratory distress. Painless inspiration. Breath sounds normal. No wheezes/rales/rhonchi noted. Chest nontender. No accessory muscle usage noted or decreased air movement noted. Abdomen: Soft and nontender. Bowel sounds normal in all 4 quadrants. No distention noted. No organomegaly noted. No visible injury noted. Back: No CVA tenderness. Full range of motion noted. Skin: Skin warm and dry. Normal skin color. Normal skin turgor. No rashes/lesions/lacerations noted. Extremities: No lower extremity edema. Extremities exhibit normal range of motion. Extremities nontender. Neuro: Oriented X 3. Cranial nerve exam: II-XII are grossly intact No motor deficit. No sensory deficit. Reflexes normal. Course Reevaluation(s) Reevaluation #1: secondary to diverticulitis start on Zosyn and IV fluids. CT is raising concern of left ovarian abscess extremely unlikely patient has no history of STDs, or PID will order pelvic ultrasound and consider OBGYN consultation. Time: 14:44 Reevaluation #2: patient would like to be discharged with oral antibiotic Augmentin and Flagyl. Ultrasound confirm left adnexal follicular cyst with no abscess. Patient was instructed to start with clear food drink level into fluids avoid seeds, and return if worsening of his symptoms. Time: 16:29 Medical Decision Making Differential Diagnosis Differential Diagnoses: The differential diagnosis associated with the presentation includes ( Diverticulitis, colitis, acute appendicitis, ovarian cyst, ovarian torsion, ovarian abscess, STDs, UTI, pyelonephritis.) Admission/Observation Consideration of admission/observation: Escalation of care including admission/observation considered Lab Data MDM Lab Attestation statement: I reviewed the patient's lab results. 11/27/24 11:26 11/27/24 11:26 Labs: Lab Results 06/11/27/24 11/27/24 Range/Units 11:26 11:40 11:51 WBC 12.9 H (4.8-10.8) X10*3/uL RBC 4.75 (4.20-5.50) X10*6/uL Hgb 13.9 (12.0-16.0) g/dl Hct 40.4 (37.0-47.0) % MCV 85.1 (80.0-98.0) fL MCH 29.3 (27.0-33.0) pg MCHC 34.4 (31.0-35.0) g/dl RDW 12.7 (11.0-16.0) % Plt Count 276 (160-400) X10*3/uL MPV 8.6 L (9.4-12.3) fL Immature Gran % (Auto) 0.3 (0.0-0.4) % Neut % (Auto) 72.1 (45-73) % Lymph % (Auto) 19.6 L (20-40) % [place] % (Auto) 6.4 (2-11) % Eos % (Auto) 1.3 (0-4) % Baso % (Auto) 0.3 (0-2) % Lymph # (Auto) 2.5 (1.2-4.9) X10*3/uL [place] # (Auto) 0.8 (0.1-1.2) X10*3/uL Eos # (Auto) 0.2 (0.0-0.4) X10*3/uL Baso # (Auto) 0.0 (0.0-0.2) X10*3/uL Abs Immat Gran (auto) 0.04 H (0.00-0.03) X10*3/uL Absolute Neuts (auto) 9.3 H (2.0-8.3) x10*3/uL Absolute Nucleated RBC 0.000 (0.0-0.012) X10*3/uL Nucleated RBC % (auto) 0.0 (0.0-0.2) /100WBC Sodium 138 (135-145) mmol/L Potassium 3.8 (3.3-5.1) mmol/L Chloride 106 (96-108) mmol/L Carbon Dioxide 25 (22-29) mmol/L Anion Gap 11 L (12-20) BUN 8 L (9-16) mg/dL Creatinine 0.62 (0.5-1.4) mg/dL Estim Creat Clear Calc 139.4 Estimated GFR > 60 Random Glucose 104 (60-115) mg/dL Lactic Acid (0.5-2.0) mmol/L Calcium 9.3 (8.4-10.2) mg/dL Total Bilirubin 1.0 (0.0-1.0) mg/dL Direct Bilirubin 0.4 (0.0-0.5) mg/dL AST 33 H (5-31) U/L ALT 53 H (0-31) U/L Alkaline Phosphatase 94 (39-117) U/L Total Protein 7.4 (6.5-8.0) g/dL Albumin 4.8 (3.5-5.0) g/dL Lipase 19 (8-78) U/L Urine Color Yellow Urine Appearance Clear Urine pH 7.0 (5.0-9.0) Ur Specific [place] 1.010 (1.005-1.025) Urine Protein Negative (Neg-Trace) mg/dL Urine Glucose (UA) Negative (Negative) mg/dL Urine Ketones Negative (Negative) mg/dL Urine Blood Negative (Negative) Urine Nitrite Negative (Negative) Ur Leukocyte Esterase Negative (Negative) Urine Test NEGATIVE (NEGATIVE) Ur N gonorrhoeae DNA (PCR) NOT DETECTED (Not Detect.) Ur Chlamydia DNA (PCR) NOT DETECTED (Not Detect.) 11/27/24 Range/Units 15:03 WBC (4.8-10.8) X10*3/uL RBC (4.20-5.50) X10*6/uL Hgb (12.0-16.0) g/dl Hct (37.0-47.0) % MCV (80.0-98.0) fL MCH (27.0-33.0) pg MCHC (31.0-35.0) g/dl RDW (11.0-16.0) % Plt Count (160-400) X10*3/uL MPV (9.4-12.3) fL Immature Gran % (Auto) (0.0-0.4) % Neut % (Auto) (45-73) % Lymph % (Auto) (20-40) % [place] % (Auto) (2-11) % Eos % (Auto) (0-4) % Baso % (Auto) (0-2) % Lymph # (Auto) (1.2-4.9) X10*3/uL [place] # (Auto) (0.1-1.2) X10*3/uL Eos # (Auto) (0.0-0.4) X10*3/uL Baso # (Auto) (0.0-0.2) X10*3/uL Abs Immat Gran (auto) (0.00-0.03) X10*3/uL Absolute Neuts (auto) (2.0-8.3) x10*3/uL Absolute Nucleated RBC (0.0-0.012) X10*3/uL Nucleated RBC % (auto) (0.0-0.2) /100WBC Sodium (135-145) mmol/L Potassium (3.3-5.1) mmol/L Chloride (96-108) mmol/L Carbon Dioxide (22-29) mmol/L Anion Gap (12-20) BUN (9-16) mg/dL Creatinine (0.5-1.4) mg/dL Estim Creat Clear Calc Estimated GFR Random Glucose (60-115) mg/dL Lactic Acid 0.9 (0.5-2.0) mmol/L Calcium (8.4-10.2) mg/dL Total Bilirubin (0.0-1.0) mg/dL Direct Bilirubin (0.0-0.5) mg/dL AST (5-31) U/L ALT (0-31) U/L Alkaline Phosphatase (39-117) U/L Total Protein (6.5-8.0) g/dL Albumin (3.5-5.0) g/dL Lipase (8-78) U/L Urine Color Urine Appearance Urine pH (5.0-9.0) Ur Specific [place] (1.005-1.025) Urine Protein (Neg-Trace) mg/dL Urine Glucose (UA) (Negative) mg/dL Urine Ketones (Negative) mg/dL Urine Blood (Negative) Urine Nitrite (Negative) Ur Leukocyte Esterase (Negative) Urine Test (NEGATIVE) Ur N gonorrhoeae DNA (PCR) (Not Detect.) Ur Chlamydia DNA (PCR) (Not Detect.) Independent Interpretation I performed an independent interpretation of an: Ultrasound ( Pelvis:1. Normal uterus and endometrium. 2. There is a left follicular ovarian cyst measuring 1.7 cm. There is no evidence of abscess. 3. Review of the CT examination demonstrates noncomplicated sigmoid diverticulitis.) and CT Scan ( abdomen pelvis:Suspected uncomplicated acute diverticulitis of the mid sigmoid colon. There are inflammatory changes surrounding a pseudodiverticula along the lateral wall of the mid sigmoid colon. There is an 18 mm loculated fluid collection in the left adnexa presumed to be a mature ovarian f) Radiology Impression Discussion of test interpretation with radiology: I have reviewed the radiologist's reading. Medications Administered Discontinued Medications Generic Name Dose Route Start Last Admin Trade Name Freq PRN Reason Stop Dose Admin Acetaminophen 650 mg 11/27/24 13:43 11/27/24 13:46 Acetaminophen 325 Mg Tablet PO 11/27/24 13:44 650 mg ONCE ONE Administration Piperacillin Sod/Tazobactam 50 mls @ 100 mls/hr 11/27/24 14:39 11/27/24 15:49 Sod 3.375 gm/ Sodium Chloride IV 11/27/24 15:08 Infused ONCE ONE Infusion Discharge Plan Discharge Clinical Impression: Diverticulitis, Follicular cyst of left ovary Patient Disposition: Home, Self-Care Instructions: Diverticulitis (DC) Prescriptions: No Action cholecalciferol (vitamin D3) 50 mcg (2,000 unit) capsule 50 mcg PO DAILY Qty: 30 4RF albuterol sulfate [ProAir HFA] 90 mcg/actuation HFA aerosol inhaler 2 puff inhalation Q4-6H PRN (Reason: shortness of breath or wheezing) Qty: 8.5 0RF multivitamin Tablet 1 tab PO DAILY cetirizine [Zyrtec] 10 mg tablet 10 mg PO DAILY PRN (Reason: allergy symptoms) Qty: 30 0RF Print Language: Malaysian
[2024-11-27 11:30] LABS: MANUAL DIFF FLAG NO
[2024-11-27 11:31] LABS: Basophils Percent Auto 0.3 % (0-2); Eosinophils Absolute Auto 0.2 X10*3/uL (0.0-0.4); Eosinophils Percent Auto 1.3 % (0-4); Hematocrit 40.4 % (37.0-47.0); Hemoglobin 13.9 g/dl (12.0-16.0); Imm Gran Abs Auto 0.04 X10*3/uL (0.00-0.03); Imm Gran Pct Auto 0.3 % (0.0-0.4); Lymphocytes Absolute Auto 2.5 X10*3/uL (1.2-4.9); Lymphocytes Percent Auto 19.6 % (20-40); Mean Corpuscular HGB Conc 34.4 g/dl (31.0-35.0); Mean Corpuscular Hemoglobin 29.3 pg (27.0-33.0); Mean Corpuscular Volume 85.1 fL (80.0-98.0); Mean Platelet Volume 8.6 fL (9.4-12.3); Monocytes Absolute Auto 0.8 X10*3/uL (0.1-1.2); Monocytes Percent Auto 6.4 % (2-11); Neutrophils Absolute Auto 9.3 x10*3/uL (2.0-8.3); Neutrophils Percent Auto 72.1 % (45-73); Platelet Count 276 X10*3/uL (160-400); Red Blood Count 4.75 X10*6/uL (4.20-5.50); Red Cell Distribution Width 12.7 % (11.0-16.0); White Blood Count 12.9 X10*3/uL (4.8-10.8)
[2024-11-27 11:53] LABS: Appearance Urine Clear; Color Urine Yellow; Glucose Urine UA Negative (Negative); Leukocyte Esterase Urine Negative (Negative); Nitrite Urine Negative (Negative); Urine Blood Negative (Negative); Urine Ketones Negative (Negative); Urine Protein Negative (Neg-Trace)
--- NOTE | 2024-11-27 11:53 | PC.NURSE ---
34 F presents to Ed with lower abdominal pain/pelvic pain 5/10 pain since sunday, denies urinary issues. A+OX4, ambulatory. RR even and unlabored, denies SOB or CP.
[2024-11-27 11:55] LABS: UPreg QC Valid YES; Urine Pregnancy NEGATIVE (NEGATIVE)
[2024-11-27 12:00] LABS: Alanine Aminotransferase 53 U/L (0-31); Albumin Level 4.8 g/dL (3.5-5.0); Alkaline Phosphatase 94 U/L (39-117); Anion Gap 11 (12-20); Aspartate Amino Transferase 33 U/L (5-31); Bilirubin Direct 0.4 mg/dL (0.0-0.5); Blood Urea Nitrogen 8 mg/dL (9-16); Calcium 9.3 mg/dL (8.4-10.2); Carbon Dioxide 25 mmol/L (22-29); Chloride 106 mmol/L (96-108); Creatinine Clr Calc Pharmacy 139.4; Estimated Glomerular Filt Rate > 60; Glucose Random 104 mg/dL (60-115); Lipase 19 U/L (8-78); Potassium 3.8 mmol/L (3.3-5.1); Sodium 138 mmol/L (135-145); Total Protein 7.4 g/dL (6.5-8.0)
[2024-11-27 13:40] LABS: CT PCR Urine NOT DETECTED (Not Detect.); NG PCR Urine NOT DETECTED (Not Detect.)
[2024-11-27] MEDS: Acetaminophen 325 MG TABLET 650 MG PO (13:46)
[2024-11-27] MEDS: Piperacillin Sodium/Tazobactam 3.375 GM in 0.9 % Sodium Chloride 50 ML IV (15:02)
[2024-11-27 15:28] LABS: Lactic Acid 0.9 mmol/L (0.5-2.0)
== END 2024-11-27 17:00 | disposition home or self-care (01) ==
PROVIDERS: Emergency Provider Emergency Medicine
DX: K57.32 Diverticulitis of large intestine without perforation or abscess without bleeding (principal); N83.202 Unspecified ovarian cyst, left side; R10.2 Pelvic and perineal pain; Z79.899 Other long term (current) drug therapy
CPT/HCPCS: 36415; 74176; 76830; 76856; 80048; 80076; 81003; 81025; 83605; 83690; 85025; 87040; 87491; 87591; 96365; 99284; 99285; J2543

== ENCOUNTER → 2024-11-27 11:01 | Outpatient (BNV) | payer OTHER, SELFPAY | PROVIDERS: Emergency Provider Emergency Medicine; Visit Provider Radiology Diagnostic Radiology | DX: N83.02 Follicular cyst of left ovary (principal) | CPT/HCPCS: 74176; 76830; 76856 ==

== ENCOUNTER 2025-01-30 09:00 | Outpatient (AMB) | payer OTHER, SELFPAY ==
--- NOTE | 2025-01-30 09:07 | A.OFFPC_ITS ---
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 Required: No Accompanied by: Self / Same As Patient Allergies No Known Allergies Allergy (Verified 01/30/25 09:34) Medication List - Last Reconciled 01/30/25 by Viry Alanis PA-C albuterol sulfate 90 mcg/actuation (ProAir HFA) 2 puffs inhalation Q4-6H PRN multivitamin 1 tab PO DAILY Tobacco use date assessed: 01/30/25 Dental Screening Dental Screen Date: 01/30/25 Did you have a dental visit in the last 12 months?: Yes Did you have a dental problem in the last 6 months where you did not have access to dental care?: No Was dental information given to patient?: Patient has dentist HPI MAUDE Saykin/ requesting gastro referral HPI Details 34-year-old female with past medical his tory of pulmonary emboli, anxiety last seen 09/2022 by nurse practitioner coming in for transfer of care. In review of the notes, patient was recently seen in [facility] [place] 11/27/2024 discharged with Augmentin and Flagyl and ultrasound confirmed left adnexal follicular cyst without abscess. Presenting with recent episodes of diverticulosis. She experienced abdominal pain two months ago and was diagnosed with diverticulosis. She completed a cours e of antibiotics and reports no current abdominal pain. The patient also has a history of an ovarian cyst identified during the same medical evaluation. She reports no current symptoms related to the ovarian cyst. The patient has experienced soft stools since the diverticulosis diagnosis, but denies blood in the stool. The patient has a history of keratosis pilaris, which has been present for her entire life and is currently acting up. She uses an [id number] exfoliant but is interested in exploring other treatment options. pap smears: seeing PP in [facility] Medical History Anxiety Wheezing Hospital discharge follow-up Encounter to establish care Physical exam Pulmonary emboli Pneumomediastinum Sepsis No pertinent past medical history Pneumonia due to COVID-19 virus Surgical History No pertinent past surgical history Family History Mother Lung cancer Father No problems noted. Social History Household Members: Significant Other Housing: Apartment Alcohol intake: current Alcohol intake frequency: holidays/special occasions only Patient Tobacco Use Status: Never used Tobacco e-Cigarette/Vaping Use: Never Used Second Hand Smoke Exposure: No service: No Current occupational status: employed Cognitive needs: No Hearing needs: No Vision needs: Yes Questionnaire PHQ-9 Over the last 2 weeks, how often have you been bothered by any of the following problems? 1. Little interest or pleasure in doing things: not at all 2. Feeling down, depressed, or hopeless: not at all 3. Trouble falling or staying asleep, or sleeping too much: not at all 4. Feeling tired or having little energy: not at all 5. Poor appetite or overeating: not at all 6. Feeling bad about yourself - or that you are a failure or have let yourself or your family down: not at all 7. Trouble concentrating on things, such as reading the newspaper or watching television: not at all 8. Moving or speaking so slowly that other people could have noticed. Or the opposite - being so fidgety or restless that you have been moving around a lot more than usual: not at all 9. Thoughts that you would be better off or of hurting yourself in some way: not at all Total score: 0 Depression Screening Interpretation: Negative Depression Screening Done: Yes 36627 - PHQ-9 Billing: Yes Source: Developed by Drs. Raimundo Lira, Sayda Ruiz, Shaun Torres and colleagues, with an educational chet from [employer]. Thrive Questionnaire Date Thrive assessed: 01/30/25 I am a: Patient What is your living situation today?: I have a steady place to live Within the past 12 months, did the food you bought not last and you didn't have the money to get more?: Never true Within the past 12 months, did you worry whether your food would run out before you got money to buy more?: Never true Do you have trouble paying for medicines?: No Do you have trouble getting transportation to medical appointments?: No Do you have trouble paying your heating and electricity bill?: No Do you have trouble taking care of your child, family member or friend?: No Do you have trouble with day-to-day activities such as bathing, preparing meals, shopping, managing finances, etc.?: No Are you currently unemployed and looking for a job?: No Are you interested in more education?: No Please select the resources that you would like help with: None Currently or been in a relationship where the following occur: No concerns reported THRIVE Score: 0 AUDIT C Alcohol Use Questionnaire (AUDIT-C) 1. How often do you have a drink containing alcohol?: 2-4 times a month 2. How many drinks containing alcohol do you have on a typical day when you are drinking?: 3 or 4 3. How often do you have six or more drinks on one occasion?: Less than monthly Total Score: 4 LEONEL-7 AMB Questionnaire LEONEL-7 Date LEONEL - 7 assessed: 01/30/25 Feeling nervous, anxious, or on edge: 0 = Not at all Not being able to stop or control worryin = Not at all Worrying too much about different things: 0 = Not at all Trouble relaxin = Not at all Being so restless that it is hard to sit still: 0 = Not at all Becoming easily annoyed or irritable: 0 = Not at all Feeling afraid as if something awful might happen: 0 = Not at all Total LEONEL-7 score (0-4 normal; 5-9 mild; 10-14 moderate; 15-21 severe): 0 Source: Developed by Drs. Raimundo Lira, Sayda Ruiz, Shaun Torres and colleagues, with an educational chet from [employer]. LEONEL-7 Assessment Billing LEONEL-7 Assessment Tool: LEONEL-7 Assessment 54282 Review of Systems Const Denies body aches, Denies chills, Denies fever(s), Denies headache(s) and Denies poor appetite Eyes Reports no additional complaints ENT Denies dysphagia, Denies dizziness, Denies headache(s) and Denies odynophagia Card Denies chest pain, Denies syncope, Denies edema, Denies irregular heart rhythm, Denies lightheadedness and Denies dyspnea Resp Denies cough and Denies dyspnea GI Denies abdominal pain, Denies constipation, Denies dysphagia, Denies diarrhea, Denies nausea, Denies odynophagia and Denies vomiting Reports no additional complaints Musc Reports no additional complaints and Denies abnormal gait Skin/Breast Reports system reviewed and no additional complaints, except as documented Neuro Denies abnormal gait, Denies dizziness, Denies syncope and Denies headache(s) Psych Reports no additional complaints Physical exam (Primary Care) Vital Signs: Last Vital Signs Pulse 70 01/30/25 09:09 BP 116/70 01/30/25 09:09 Pulse Ox 96 01/30/25 09:09 Oxygen Delivery Method Room Air 01/30/25 09:09 BMI result Body Mass Index 39.2 Tobacco/Smoking Status: Tobacco use Status Tobacco use date assessed 01/30/25 01/30/25 09:16 Patient Tobacco Use Status Never used Tobacco 01/30/25 09:16 e-Cigarette/Vaping Use Never Used 01/30/25 09:16 PHQ-9: PHQ-9 Score PHQ-9: Total score 0 01/30/25 09:44 Depression Screening Interpretation: Negative Thrive Assessment: Date of Thrive Assessment Date Thrive assessed 01/30/25 01/30/25 09:16 Currently or been in a relationship where the following occur: No concerns reported Const General: cooperative, healthy appearing, comfortable and no acute distress Orientation/consciousness: patient oriented x3 HENMT Head: Yes normocephalic Ears: hearing grossly normal bilaterally General nose exam: Normal external nose present Eyes General: appearance normal, both eyes and all related structures Conjunctivae: conjunctivae normal Neck Neck: Yes full ROM and Yes no lymphadenopathy Resp Effort & Inspection: normal respiratory effort Auscultation: clear to auscultation bilaterally, no crackles, no rales, no rhonchi and no wheezes Cardio Rate: regular rate Rhythm: regular rhythm Skin General skin exam: no rashes or lesions noted Neuro General: patient oriented x3 Gait exam (Neuro): Normal gait present Extrem General: Yes normal to inspection, Yes full ROM and No edema Psych Affect: normal affect Attitude: cooperative Insight: Good insight present (Psych) Judgement: Good judgement present (Psych) Coding Level of Care Code Est Pt Level 4 (64951) Diagnoses Other acute pulmonary embolism without acute cor pulmonale I26.99 Acute cor pulmonale presence: without acute cor pulmonale Chronicity: acute Pulmonary embolism type: other Vitamin D deficiency E55.9 Ovarian cyst N83.209 Diverticulitis K57.92 Keratosis pilaris L85.8 Elevated LFTs R79.89 Cholelithiasis K80.20 Additional Codes LEONEL-7 Assessment Billing - LEONEL-7 Assessment Tool: LEONEL-7 Assessment 15620 ([id number]) PHQ-9 - 47979 - PHQ-9 Billing: Yes ([id number]) Assessment & Plan Assessment & Plan (1) Pulmonary emboli: Comment: after being sick with COVID 05/2021, patient has completed Eliquis treatment. Code(s): I26.99 - Other pulmonary embolism without acute cor pulmonale Category: Medical Qualifiers: Acute cor pulmonale presence: without acute cor pulmonale Chronicity: acute Pulmonary embolism type: other Qualified Code(s): I26.99 - Other pulmonary embolism without acute cor pulmonale Plan: History of pulmonary embolism completed Eliquis treatment. Advised patient to remain vigilant and reviewed red flag symptoms. (2) Vitamin D deficiency: Code(s): E55.9 - Vitamin D deficiency, unspecified Category: Medical Plan: Ordered blood work (3) Ovarian cyst: Code(s): N83.209 - Unspecified ovarian cyst, unspecified side Category: Medical Plan: Patient having ultrasound that found ovarian cyst and she [facility] (4) Diverticulitis: Code(s): K57.92 - Diverticulitis of intestine, part unspecified, without perforation or abscess without bleeding Category: Medical Plan: For the diverticulitis advised patient to avoid constipation. Patient to add fiber supplement to medication regimen, increase water intake and exercise as tolerated. Referral was also placed to GI today for further workup (5) Keratosis pilaris: Code(s): L85.8 - Other specified epidermal thickening Category: Medical Plan: Recommend the use of 40% urea cream which can be obtained over the counter if needed. Referral was also placed to dermatology at patient request. (6) Elevated LFTs: Code(s): R79.89 - Other specified abnormal findings of blood chemistry Category: Medical Plan: Ordered for repeat blood work (7) Cholelithiasis: Code(s): K80.20 - Calculus of gallbladder without cholecystitis without obstruction Category: Medical Plan: Patient having incidental finding of cholelithiasis on most recent CT. Recommend avoiding fatty meals and reviewed with the patient symptoms of biliary colic Plan During the visit, I discussed with the patient the diagnosis of diverticulosis and the importance of a GI referral for further evaluation. We reviewed the management of gallstones and hiatal hernia, emphasizing dietary modifications to prevent symptoms. I also explained the use of 40% urea cream for keratosis pilaris and the potential need for dermatology consultation. Follow-up plans include blood work and a return visit in three months for a comprehensive physical examination. This note was constructed using voice recognition software. While every effort has been made to ensure accuracy and phototypesetting equipment monitor, still areas may have been included sometimes these areas may affect the content or meeting of the given symptoms. Total time spent caring for the patient today was 30 minutes. This includes time spent before the visit reviewing the chart, time spent during the visit, and time spent after the visit and documentation. Patient was informed and verbally consented to the use of an ambient scribe for clinic note documentation during this visit. Orders: Orders TSH reflex Free T4 Today Z13.29 - Encounter for screening for other suspected endocrine disorder Vitamin D 25-OH Total Today E55.9 - Vitamin D deficiency, unspecified, Z13.21 - Encounter for screening for nutritional disorder Comprehensive Met. Panel Today R79.89 - Other specified abnormal findings of blood chemistry, Z00.00 - Encounter for general adult medical examination without abnormal findings Complete Blood Count Auto Diff Today N83.209 - Unspecified ovarian cyst, unspecified side, Z00.00 - Encounter for general adult medical examination without abnormal findings Free T4 (Free Thyroxine) Today Z00.00 - Encounter for general adult medical examination without abnormal findings Lipid Panel Today Z13.220 - Encounter for screening for lipoid disorders Vitamin B12 and Folate Today Z13.21 - Encounter for screening for nutritional disorder Hemoglobin A1c Today Z13.1 - Encounter for screening for diabetes mellitus Referrals Gastroenterology Referral K57.92 - Diverticulitis of intestine, part unspecified, without perforation or abscess without bleeding Dermatology Referral L85.8 - Other specified epidermal thickening Medications: New urea 40% 1 appl topical BID 85 grams 0RF Discontinued albuterol sulfate 90 mcg/actuation (ProAir HFA) Discontinued Reason: Patient no longer taking 2 puffs inhalation Q4-6H PRN 8.5 grams 0RF shortness of breath or wheezing R06.2 - Wheezing
[2025-01-30 09:09] VITALS: BP 116/70; PULSE 70; O2SAT 96; BMI 39.2
== END 2025-01-30 10:14 | disposition home or self-care (01) ==
DX: I26.99 Other pulmonary embolism without acute cor pulmonale (principal); E55.9 Vitamin D deficiency, unspecified; N83.209 Unspecified ovarian cyst, unspecified side; K57.92 Diverticulitis of intestine, part unspecified, without perforation or abscess without bleeding; L85.8 Other specified epidermal thickening; R79.89 Other specified abnormal findings of blood chemistry; K80.20 Calculus of gallbladder without cholecystitis without obstruction

== ENCOUNTER → 2025-01-30 09:00 | Outpatient (BNVA) | payer OTHER, SELFPAY | DX: K57.90 Diverticulosis of intestine, part unspecified, without perforation or abscess without bleeding (principal); I26.99 Other pulmonary embolism without acute cor pulmonale; E55.9 Vitamin D deficiency, unspecified; N83.209 Unspecified ovarian cyst, unspecified side; K57.92 Diverticulitis of intestine, part unspecified, without perforation or abscess without bleeding; L85.8 Other specified epidermal thickening; R79.89 Other specified abnormal findings of blood chemistry; K80.20 Calculus of gallbladder without cholecystitis without obstruction; Z86.711 Personal history of pulmonary embolism | CPT/HCPCS: 96127 ==

== ENCOUNTER 2025-04-13 07:04 | Outpatient (REF) | payer OTHER, SELFPAY ==
--- OUTSIDE RECORDS SUMMARY | 2025-04-13 07:06 | XMS_ITS ---
Author Name [facility] Organization Unknown History of Medication Use Medication Directions Dispensed Refills Start Date End Date Stat us benzonatate 03/04/2025 active cetirizine-pseudoephedrine 03/04/2025 active Allergy Relief (fluticasone) 03/04/2025 active Encounters Encounter Type Encounter Reason Primary Diagnosis Location Date Ambulatory [facility] Acute upper resp iratory infection, unspecified [facility] 03/04/2025 Care Team Organization Name Specialty Phone Email Start Date End [facility] te [facility] 03/04/2025 [facility] 03/04/2025
[2025-04-13 10:25] LABS: MANUAL DIFF FLAG NO
[2025-04-13 10:36] LABS: Hematocrit 40.7 % (37.0-47.0); Hemoglobin 13.3 g/dl (12.0-16.0); Imm Gran Abs Auto 0.04 X10*3/uL (0.00-0.03); Imm Gran Pct Auto 0.4 % (0.0-0.4); Lymphocytes Absolute Auto 3.8 X10*3/uL (1.2-4.9); Mean Corpuscular HGB Conc 32.7 g/dl (31.0-35.0); Mean Corpuscular Hemoglobin 28.2 pg (27.0-33.0); Mean Corpuscular Volume 86.4 fL (80.0-98.0); NRBC Abs Auto 0.000 X10*3/uL (0.0-0.012); NRBC Pct Auto 0.0 /100WBC (0.0-0.2); Platelet Count 324 X10*3/uL (160-400); Red Blood Count 4.71 X10*6/uL (4.20-5.50); White Blood Count 8.9 X10*3/uL (4.8-10.8)
[2025-04-13 11:06] LABS: Alanine Aminotransferase 50 U/L (0-31); Albumin Level 4.5 g/dL (3.5-5.0); Alkaline Phosphatase 83 U/L (39-117); Anion Gap 13 (12-20); Aspartate Amino Transferase 32 U/L (5-31); Blood Urea Nitrogen 15 mg/dL (9-16); Calcium 9.3 mg/dL (8.4-10.2); Carbon Dioxide 23 mmol/L (22-29); Chloride 106 mmol/L (96-108); Cholesterol 173 mg/dL (<200); Estimated Glomerular Filt Rate > 60; HDL Cholesterol 43 mg/dL (>40); Potassium 4.0 mmol/L (3.3-5.1); Sodium 138 mmol/L (135-145); Total Protein 7.2 g/dL (6.5-8.0); Triglycerides 197 mg/dL (<150)
[2025-04-13 11:07] LABS: Free T4 (Free Thyroxine) 1.01 ng/dL (0.71-1.85)
[2025-04-13 11:24] LABS: Folate 7.7 ng/mL (> or = 4.0); Vitamin B12 156 pg/mL (200-900)
== END 2025-04-13 07:05 | disposition home or self-care (01) ==
LOC: HO.HMGCLDS 07:04
DX: Z00.00 Encounter for general adult medical examination without abnormal findings (principal); Z13.21 Encounter for screening for nutritional disorder; Z13.220 Encounter for screening for lipoid disorders; Z13.29 Encounter for screening for other suspected endocrine disorder; Z13.1 Encounter for screening for diabetes mellitus; E55.9 Vitamin D deficiency, unspecified; R79.89 Other specified abnormal findings of blood chemistry; N83.209 Unspecified ovarian cyst, unspecified side
CPT/HCPCS: 36415; 80053; 80061; 82306; 82607; 82746; 83036; 84439; 84443; 85025

== ENCOUNTER 2025-04-16 08:27 | Outpatient (AMB) | payer OTHER, SELFPAY ==
[2025-04-16 08:30] VITALS: BP 118/80; PULSE 86; TEMP 36.3; O2SAT 95; BMI 39.6
--- NOTE | 2025-04-16 08:30 | A.OFFPC_ITS ---
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 Required: No Accompanied by: Self / Same As Patient Allergies No Known Allergies Allergy (Verified 04/16/25 08:37) Medication List - Last Reconciled 04/16/25 by Viry Alanis PA-C cholecalciferol (vitamin D3) 25 mcg PO DAILY mecobalamin (vitamin B12) 1,000 mcg PO DAILY multivitamin 1 tab PO DAILY urea 40% 1 appl topical BID Tobacco use date assessed: 01/30/25 Dental Screening Dental Screen Date: 01/30/25 Did you have a dental visit in the last 12 months?: Yes Did you have a dental problem in the last 6 months where you did not have access to dental care?: No Was dental information given to patient?: Patient has dentist HPI annual exam HPI Details 34-year-old female with past medical his tory of pulmonary emboli, anxiety last seen 01/2025 coming in for annual exam. Presenting for a follow-up visit to review laboratory results and manage chronic conditions. Recent blood work revealed an A1c of 5.9%, placing her in the prediabetic range, and triglycerides of 197. The patient was also found to have low vitamin D and vitamin B12 levels, for which she recently started taking supplements. For a couple of months, she has experienced intermittent, dull pain in the right groin area that occurs randomly and is now improving. pap smears: through PP vaccines: Tdap UTD PFSH Medical History Anxiety Wheezing Hospital discharge follow-up Encounter to establish care Physical exam Pulmonary emboli Pneumomediastinum Sepsis No pertinent past medical history Pneumonia due to COVID-19 virus Surgical History No pertinent past surgical history Family History Mother Lung cancer Father No problems noted. Social History Household Members: Significant Other Housing: Apartment Alcohol intake: current Alcohol intake frequency: holidays/special occasions only Patient Tobacco Use Status: Never used Tobacco e-Cigarette/Vaping Use: Never Used Second Hand Smoke Exposure: No service: No Current occupational status: employed Cognitive needs: No Hearing needs: No Vision needs: Yes Questionnaire PHQ-9 Over the last 2 weeks, how often have you been bothered by any of the following problems? 1. Little interest or pleasure in doing things: not at all 2. Feeling down, depressed, or hopeless: not at all 3. Trouble falling or staying asleep, or sleeping too much: not at all 4. Feeling tired or having little energy: not at all 5. Poor appetite or overeating: not at all 6. Feeling bad about yourself - or that you are a failure or have let yourself or your family down: not at all 7. Trouble concentrating on things, such as reading the newspaper or watching television: not at all 8. Moving or speaking so slowly that other people could have noticed. Or the opposite - being so fidgety or restless that you have been moving around a lot more than usual: not at all 9. Thoughts that you would be better off or of hurting yourself in some way: not at all Total score: 0 Depression Screening Interpretation: Negative Depression Screening Done: Yes Source: Developed by Drs. Raimundo Lira, Sayda Ruiz, Shaun Torres and colleagues, with an educational chet from [employer]. Thrive Questionnaire Date Thrive assessed: 01/30/25 I am a: Patient What is your living situation today?: I have a steady place to live Within the past 12 months, did the food you bought not last and you didn't have the money to get more?: Never true Within the past 12 months, did you worry whether your food would run out before you got money to buy more?: Never true Do you have trouble paying for medicines?: No Do you have trouble getting transportation to medical appointments?: No Do you have trouble paying your heating and electricity bill?: No Do you have trouble taking care of your child, family member or friend?: No Do you have trouble with day-to-day activities such as bathing, preparing meals, shopping, managing finances, etc.?: No Are you currently unemployed and looking for a job?: No Are you interested in more education?: No Please select the resources that you would like help with: None Currently or been in a relationship where the following occur: No concerns reported THRIVE Score: 0 AUDIT C Alcohol Use Questionnaire (AUDIT-C) 1. How often do you have a drink containing alcohol?: 2-4 times a month 2. How many drinks containing alcohol do you have on a typical day when you are drinking?: 3 or 4 3. How often do you have six or more drinks on one occasion?: Less than monthly Total Score: 4 LEONEL-7 AMB Questionnaire LEONEL-7 Date LEONEL - 7 assessed: 01/30/25 Feeling nervous, anxious, or on edge: 0 = Not at all Not being able to stop or control worryin = Not at all Worrying too much about different things: 0 = Not at all Trouble relaxin = Not at all Being so restless that it is hard to sit still: 0 = Not at all Becoming easily annoyed or irritable: 0 = Not at all Feeling afraid as if something awful might happen: 0 = Not at all Total LEONEL-7 score (0-4 normal; 5-9 mild; 10-14 moderate; 15-21 severe): 0 Source: Developed by Drs. Raimundo Lira, Sayda Ruiz, Shaun Torres and colleagues, with an educational chet from [employer]. Review of Systems Const Denies body aches, Denies fatigue, Denies fever(s), Denies frequent falls, Denies headache(s) and Denies weakness Eyes Reports no additional complaints and Denies change in vision ENT Denies dysphagia, Denies dizziness, Denies facial pain, Denies headache(s), Denies nasal congestion and Denies odynophagia Card Denies chest pain, Denies syncope, Denies irregular heart rhythm, Denies leg edema, Denies lightheadedness and Denies dyspnea Resp Denies cough and Denies dyspnea GI Denies constipation, Denies dysphagia, Denies dyspepsia, Denies diarrhea, Denies nausea, Denies odynophagia and Denies vomiting Denies urinary frequency, Denies dysuria, Denies urinary hesitancy and Denies urinary urgency Musc Reports as per HPI, Denies back pain and Denies myalgias Skin/Breast Reports system reviewed and no additional complaints, except as documented Neuro Denies dizziness, Denies syncope, Denies frequent falls, Denies headache(s) and Denies weakness Psych Reports no additional complaints Endo Denies fatigue Physical exam (Primary Care) Vital Signs: Last Vital Signs Temp 97.3 F 04/16/25 08:30 Pulse 86 04/16/25 08:30 BP 118/80 04/16/25 08:30 Pulse Ox 95 04/16/25 08:30 Oxygen Delivery Method Room Air 04/16/25 08:30 BMI result Body Mass Index 39.6 Tobacco/Smoking Status: Tobacco use Status Tobacco use date assessed 01/30/25 04/16/25 08:33 Patient Tobacco Use Status Never used Tobacco 04/16/25 08:33 e-Cigarette/Vaping Use Never Used 04/16/25 08:33 PHQ-9: PHQ-9 Score PHQ-9: Total score 0 04/16/25 08:33 Depression Screening Interpretation: Negative Thrive Assessment: Date of Thrive Assessment Date Thrive assessed 01/30/25 04/16/25 08:33 Currently or been in a relationship where the following occur: No concerns reported Const General: cooperative, healthy appearing, comfortable and no acute distress Orientation/consciousness: patient oriented x3 HENMT Head: Yes normocephalic Ears: hearing grossly normal bilaterally, external ears normal, TM's normal bilaterally and Abnormal EAC present cerumen impaction on the left and excessive cerumen on the right General nose exam: Normal external nose present Face and sinus: Yes normal facial exam and Yes sinuses nontender Mouth: Normal oral and palatal mucosa present and tongue normal Throat: Yes posterior oropharynx normal Eyes General: appearance normal, both eyes and all related structures Conjunctivae: conjunctivae normal Pupils: Equal, round and reactive pupils present EOM: EOMs intact bilaterally and No Nystagmus present Neck Neck: Yes normal visual inspection, Yes full ROM and Yes no lymphadenopathy Chest Chest palpation & inspection: normal inspection of the chest Resp Effort & Inspection: normal respiratory effort Auscultation: clear to auscultation bilaterally, no crackles, no rales, no rhonchi, no wheezes and breath sounds present Cardio Rate: regular rate Rhythm: regular rhythm Peripheral pulses: radial pulses present and dorsalis pedis present GI Inspection: Yes normal to inspection and No Abdominal wall edema Palpation (GI): Soft to palpation, not firm and nontender Auscultation: normal bowel sounds Rectal Exam - Female: deferred General: Yes no CVA tenderness Back/Spine/Pelvis Other: no TTP to left hip or groin Back: no CVA tenderness Skin General skin exam: no rashes or lesions noted Neuro General: patient oriented x3 Cranial nerves: Yes Equal, round and reactive pupils present, Yes Midline tongue present, Yes Ability to bilaterally elevate shoulders present and No Nystagmus present Gait exam (Neuro): Normal gait present Extrem General: Yes normal to inspection, Yes full ROM, No no pedal edema and No edema Psych Speech and movement: Normal speech and movement present Affect: normal affect Insight: Good insight present (Psych) Judgement: Good judgement present (Psych) Coding Level of Care Code Est Pt Prev Care [id number]) Diagnoses Annual physical exam Z00.00 Other acute pulmonary embolism without acute cor pulmonale I26.99 Pulmonary embolism type: other Chronicity: acute Acute cor pulmonale presence: without acute cor pulmonale Vitamin D deficiency E55.9 Ovarian cyst N83.209 Diverticulitis K57.92 Keratosis pilaris L85.8 Elevated LFTs R79.89 Cholelithiasis K80.20 Vitamin B12 deficiency E53.8 Hypertriglyceridemia E78.1 Prediabetes R73.03 Right groin pain R10.31 Obesity (BMI 30-39.9) E66.9 Left ear impacted cerumen H61.22 Assessment & Plan Assessment & Plan (1) Annual physical exam: Code(s): Z00.00 - Encounter for general adult medical examination without abnormal findings Category: Medical Plan: Patient is up to date on all recommended routine screenings and vaccination for her age. Healthy diet and regular exercise is encouraged. Blood work is up to date and has been reviewed with the patient. Plan to follow up yearly or sooner as needed. (2) Pulmonary emboli: Comment: after being sick with COVID 05/2021, patient has completed Eliquis treatment. Code(s): I26.99 - Other pulmonary embolism without acute cor pulmonale Category: Medical Qualifiers: Pulmonary embolism type: other Chronicity: acute Acute cor pulmonale presence: without acute cor pulmonale Qualified Code(s): I26.99 - Other pulmonary embolism without acute cor pulmonale Plan: History of pulmonary embolism completed Eliquis treatment. Advised patient to remain vigilant and reviewed red flag symptoms. (3) Vitamin D deficiency: Code(s): E55.9 - Vitamin D deficiency, unspecified Category: Medical Plan: On Vitamin D supplement continue to monitor blood work. (4) Ovarian cyst: Code(s): N83.209 - Unspecified ovarian cyst, unspecified side Category: Medical Plan: Patient having ultrasound that found ovarian cyst and she [facility] (5) Diverticulitis: Code(s): K57.92 - Diverticulitis of intestine, part unspecified, without perforation or abscess without bleeding Category: Medical Plan: For the diverticulitis advised patient to avoid constipation. Patient to add fiber supplement to medication regimen, increase water intake and exercise as tolerated. Seeing GI in 06/2025. (6) Keratosis pilaris: Code(s): L85.8 - Other specified epidermal thickening Category: Medical Plan: Has been using Urea 40% OTC and has seen improvement. (7) Elevated LFTs: Code(s): R79.89 - Other specified abnormal findings of blood chemistry Category: Medical Plan: LFTs remain elevated. Last CT 11/2024 did not reveal and abnormality and LFTs have been stable. Recommend avoidance of tylenol and alcohol in excess and continue to monitor. (8) Cholelithiasis: Code(s): K80.20 - Calculus of gallbladder without cholecystitis without obstruction Category: Medical Plan: Patient having incidental finding of cholelithiasis on most recent CT. Recommend avoiding fatty meals and reviewed with the patient symptoms of biliary colic (9) Vitamin B12 deficiency: Code(s): E53.8 - Deficiency of other specified B group vitamins Category: Medical Plan: Patient is currently on supplementation plan for repeat blood work in 3 months. (10) Hypertriglyceridemia: Code(s): E78.1 - Pure hyperglyceridemia Category: Medical Plan: Avoid foods that are high in cholesterol such as red meat, fried foods, eggs and baked goods. Triglyceride goal of less than 150 and LDL goal of less than 130. (11) Prediabetes: Code(s): R73.03 - Prediabetes Category: Medical Plan: Decrease the amount of carbohydrates such as pasta, bread, rice, and potatoes and limit the amount of sweets. Although fruits are generally healthy they should be eaten in moderation as they are still high in sugar. (12) Right groin pain: Code(s): R10.31 - Right lower quadrant pain Category: Medical Plan: The patient complains of intermittent, dull pain in the right groin, which is likely musculoskeletal in origin rather than related to her diverticulitis or ovarian cyst based on location and benign physical exam findings. She was advised to perform gentle hip-opening stretches. She should follow up if the pain worsens or fails to improve, at which point an x-ray or a referral to physical therapy may be considered. She will also follow up with her environmental protection forester for this concern. (13) Obesity (BMI 30-39.9): Code(s): E66.9 - Obesity, unspecified Category: Medical Plan: Healthy diet and regular exercise is encouraged. (14) Left ear impacted cerumen: Code(s): H61.22 - Impacted cerumen, left ear Category: Medical Plan: PLan to use debrox as needed and follow up for ear flushing if desired. Plan This note was constructed using voice recognition software. While every effort has been made to ensure accuracy and turbo electric operator, still areas may have been included sometimes these areas may affect the content or meeting of the given symptoms. Total time spent caring for the patient today was thirty minutes. This includes time spent before the visit reviewing the chart, time spent during the visit, and time spent after the visit and documentation. Patient was informed and verbally consented to the use of an ambient scribe for clinic note documentation during this visit.
== END 2025-04-16 09:02 | disposition home or self-care (01) ==
LOC: HO.HMCH 08:28
DX: Z00.00 Encounter for general adult medical examination without abnormal findings (principal); I26.99 Other pulmonary embolism without acute cor pulmonale; E66.9 Obesity, unspecified; Z68.39 Body mass index [BMI] 39.0-39.9, adult; E55.9 Vitamin D deficiency, unspecified; N83.209 Unspecified ovarian cyst, unspecified side; K57.92 Diverticulitis of intestine, part unspecified, without perforation or abscess without bleeding; L85.8 Other specified epidermal thickening; R79.89 Other specified abnormal findings of blood chemistry; K80.20 Calculus of gallbladder without cholecystitis without obstruction; E53.8 Deficiency of other specified B group vitamins; E78.1 Pure hyperglyceridemia; R73.03 Prediabetes; R10.31 Right lower quadrant pain; H61.22 Impacted cerumen, left ear